=== PATIENT | male | born 1945 | race Caucasian/White ===

== ENCOUNTER 2016-05-10 20:28 | Inpatient (IN) | payer OTHER, BC ==
[~2016-05-10] VITALS: Ht 180.3 cm; Wt 81.6 kg
[~2016-05-10 20:28] MED LIST: ASPEC325 PO; ATOR-26 PO; BUME1TAB PO; CARB25TA12 PO; CGN5X PO; CZR25 PO; DIGO0.122 PO; ELDP5 PO; FINA5TAB PO; METH-1117 PO; METO50TA16 PO; MIRT30TA2 PO; MULT1TAB56 PO; NVLGI7030 SC; POTA20TA16 PO; ROPI1TAB29 PO; SENNTAB23 PO
[2016-05-10 20:47] LABS: HEMATOCRIT 46.6 % (42-52); MEAN CORPUSCULAR HEMOGLOBIN 31.3 pg (25-34); MEAN CORPUSCULAR HGB CONC 34.8 g/dl (32-36); MEAN PLATELET VOLUME 11.2 fL (7.4-10.4); PLATELET COUNT 143 K/uL (130-400); RED BLOOD COUNT 5.18 M/uL (4.7-6.1); WHITE BLOOD COUNT 8.08 K/uL (4.8-10.8)
--- NOTE | 2016-05-10 20:59 | DIAGNOSTIC IMAGING REPORT ---
CT OF THE HEAD WITHOUT CONTRAST CLINICAL HISTORY: Right-sided weakness. Cerebrovascular accident symptoms. COMPARISON STUDY: Head CT March 02, 2009. CT DOSE: 712.55 mGy.cm TECHNIQUE: Helical axial images of the head were obtained without IV contrast. Automated exposure control was utilized for the study. FINDINGS: No acute intracranial hemorrhage, midline shift or mass effect is present. There is an old infarct within the right occipital lobe. Subtle hypodensity within the right frontal lobe shown on image 22 of 32 is probably artifactual. There is equivocal loss of garcía-white differentiation within the left insular ribbon shown on axial image 16 of 32. Basilar cisterns are patent. There are no extra-axial collections. The right maxillary sinus is largely opacified. There is no calvarial fracture. IMPRESSION: 1. No acute intracranial hemorrhage or mass effect. 2. Equivocal loss of garcía-white differentiation within the left insular cortex. This could reflect artifact or an acute infarct. 3. Old right occipital lobe infarct. 4. Subtle hypodensity within the anterior right frontal lobe. This is likely artifactual. An acute infarct could appear similar but is considered less likely. Electronically signed by: Fausto Underwood M.D. 05/10/2016 8:57 PM Dictated Date/Time: 05/10/2016 8:49 PM
[2016-05-10 21:00] LABS: ISTAT CREATININE 1.5 mg/dl (0.6-1.3); ISTAT HEMOGLOBIN 15.6 g/dl (14.0-18.0); ISTAT IONIZED CALCIUM 1.19 mmol/l (1.12-1.32)
[2016-05-10 21:05] LABS: INR 1.2 (0.9-1.1); PROTHROMBIN TIME (PATIENT) 12.4 SECONDS (9.0-12.0)
[2016-05-10] MEDS ORDERED: NVLGI/PEN SQ (21:11)
[2016-05-10] MEDS ORDERED: PRAM0.256 PO (21:11)
[2016-05-10] MEDS ORDERED: INSU3INJ3 SQ (21:11)
[2016-05-10] MEDS ORDERED: NVLGIPEN SQ (21:11)
[2016-05-10] MEDS ORDERED: SPIR25TA PO (21:11)
[2016-05-10 21:15] LABS: BUN/CREATININE RATIO 24.1 (10-20); CALCIUM 9.1 mg/dl (8.5-10.1); CREATININE 1.6 mg/dl (0.60-1.40); POTASSIUM 4.9 mmol/L (3.5-5.1)
[2016-05-10] MEDS ORDERED: LEVA45AE PO (21:31)
[2016-05-10] MEDS ORDERED: ALTEPLASE IV STA (21:32)
[2016-05-10] MEDS ORDERED: RECOMBINANT IV STA (21:32)
[2016-05-10] MEDS ORDERED: ALTEPLASE IV ONE (21:33)
[2016-05-10] MEDS ORDERED: ALTEPLASE, RECOMBINANT INJ 7.8 MG in SYRINGE 0 ML IV ONE (21:33)
[2016-05-10] MEDS ORDERED: RECOMBINANT IV ONE (21:33)
[2016-05-10 21:40] VITALS: BP 116/92; PULSE 94; O2SAT 96
[2016-05-10] MEDS ORDERED: SET 2260-0500 IV ONE (21:45)
[2016-05-10 21:48] VITALS: BP 110/88; PULSE 95; O2SAT 96
[2016-05-10 22:00] VITALS: BP 120/81; PULSE 89; O2SAT 96
[2016-05-10] MEDS ORDERED: PHARMACIST DISCHARGE MED REC CONSULT PRN (22:15)
[2016-05-10] MEDS ORDERED: ACETAMINOPHEN 325 MG TAB PO PRN (22:15)
[2016-05-10] MEDS ORDERED: DOCUSATE SODIUM/SENNA 50/8.6MG TAB PO PRN (22:15)
[2016-05-10 22:28] LABS: CKMB/CK RATIO 2.8 (0-3.0)
--- NOTE | 2016-05-10 23:17 | History and Physical ---
History & Physical Date & Time of Service: May 10, 2016 at 22:56 Chief Complaint: Stroke Alert / Rt Sided Weakness, Lsn @1940 Primary Care Physician: Rohit Pena III, CRNP History of Present Illness Source: patient, family 70 y/o M w/Hx CHF (EF 15%), pacer/AICD, DM, Parkinson's. Pt developed acute R sided weakness, L facial droop and aphasia 50 min [employer]. He was sent for a CT which was probable for an acute L insular CVA and evaluated promptly by the telestroke service. A decision was made to provide TPA which he received within an appropriate window. At the time of evaluation for admission, the pt may be exhibiting slight improvement in strength on the R side but has otherwise had minimal results from the TPA. He was apparently in his normal state of health prior to the above. He appears to have expressive aphasia only and is able to nod his head and attempt requested commands however he cannot vocalize. His family are present to provide the above information. 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 - does not drink alcohol Smoking Status: Never Smoker Drug Use: none Marital Status: Housing status: lives with family Occupational Status: retired Multi-Drug Resistant Organisms History of MDRO: Yes Type of MDRO: MRSA Allergies Coded Allergies: Sulfa Antibiotics (Unverified Allergy, Severe, red splotches that itch, ) Propoxyphene (Verified Allergy, Unknown, 02/28/14) Home Medications Scheduled Aspirin (Aspirin *), 325 MG PO QPM Atorvastatin (Lipitor), 80 MG PO DAILY Bumetanide (Bumex), 2 TABS PO BID Carbidopa/Levodopa (Sinemet 25MG/100MG), 2 TAB PO QID Digoxin (Lanoxin), 0.125 MG PO DAILY Finasteride (Proscar), 5 MG PO HS Insulin Aspart (Novolog Flexpen), 10 UNITS SQ BID Insulin Aspart (Novolog Flexpen), 15 UNITS SQ QPM Insulin Detemir (Levemir Flextouch), 50 UNITS SQ HS Levalbuterol Tartrate (Levalbuterol Tartrate Hfa), 2 PUFF PO TID Losartan Potassium (Cozaar *), 0.5 TAB PO DAILY Methenamine Hippurate (Hiprex), 1 GM PO BID Metoprolol Tartrate (Lopressor) (Lopressor), 1.5 TABS PO DAILY Mirtazapine Soltab (Remeron Soltab), 30 MG PO HS Multiple Vitamins W/ Minerals (One Daily Adults 50+), 1 TAB PO DAILY Potassium Ext Rel (Klor-Con), 20 MEQ PO QID Pramipexole Dihydrochloride (Pramipexole Dihydrochlori), 0.25 MG PO TID Selegiline Hcl (Eldepryl *), 5 MG PO DAILY Spironolactone (Aldactone), 25 MG PO DAILY Scheduled PRN Sennosides-Docusate Sodium (Stool Softener), 2 TABS PO AMPM PRN for Constipation Review of Systems Cannot obtain directly from pt - apparently no complaints prior to above acute changes Physical Exam Vital Signs Date Time Temp Pulse Resp B/P Pulse Ox O2 Delivery O2 Flow Rate FiO2 05/10/16 22:00 87 21 120/81 96 Nasal Cannula 2.0 05/10/16 21:57 97 Nasal Cannula 2.0 05/10/16 21:53 81 18 88 Room Air 05/10/16 21:48 86 20 110/88 92 05/10/16 21:43 94 28 95 05/10/16 21:39 92 20 116/92 93 05/10/16 21:33 94 18 95 05/10/16 21:28 104 22 143/105 92 05/10/16 21:23 95 30 91 05/10/16 21:18 90 18 96 05/10/16 21:13 92 20 96 05/10/16 21:08 90 20 91 05/10/16 21:03 89 20 92 05/10/16 20:58 90 20 96 05/10/16 20:48 89 12 119/85 97 Room Air 05/10/16 20:45 98 30 125/94 94 Room Air 05/10/16 20:42 101 05/10/16 20:42 98 30 125/94 94 Room Air General Appearance: + pertinent finding (Overweight elderly male - aphasic - understands commands - no apparent distress) Head: normocephalic, atraumatic, + pertinent finding (Does not appear to be able to open mouth, extrude tongue or mobilize facial muscles) Eyes: + pertinent finding (Pupils are constricted but equal - difficulty w/L gaze without neglect) ENT: + pertinent finding (Dry mucosal memebranes - no audible bruits) Neck: supple, no JVD Respiratory/Chest: chest non-tender, lungs clear, normal breath sounds Cardiovascular: regular rate, rhythm, no edema, + systolic murmur Abdomen/GI: normal bowel sounds, non tender, soft Back: normal inspection, no CVA tenderness Extremities/Musculoskelatal: no calf tenderness, normal capillary refill, no pedal edema Neurologic/Psych: + pertinent finding (Expressive aphasia - Facial muscle weakness - cannot extrude tongue or swallow - pupils contricted but equal - difficulty with L gaze without neglect - loss of sensation to light touch over R upper and lower ext - flacid paralysis of RLE - 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 - cannot comply with coordination exam) Diagnostics Laboratory Results Results Past 24 Hours Test 05/10/16 20:13 05/10/16 20:37 05/10/16 20:54 Range/Units White Blood Count 8.08 4.8-10.8 K/uL Red Blood Count 5.18 4.7-6.1 M/uL Hemoglobin 16.2 14.0-18.0 g/dL Hematocrit 46.6 42-52 % Mean Corpuscular Volume 90.0 80-100 fL Mean Corpuscular Hemoglobin 31.3 25-34 pg Mean Corpuscular Hemoglobin Concent 34.8 32-36 g/dl RDW Standard Deviation 48.5 36.4-46.3 fL RDW Coefficient of Variation 14.7 11.5-14.5 % Platelet Count 143 130-400 K/uL Mean Platelet Volume 11.2 7.4-10.4 fL Prothrombin Time 12.4 9.0-12.0 SECONDS Prothromb Time International Ratio 1.2 0.9-1.1 Activated Partial Thromboplast Time 26.7 21.0-31.0 SECONDS Partial Thromboplastin Ratio 1.0 Sodium Level 137 136-145 mmol/L Potassium Level 4.9 3.5-5.1 mmol/L Chloride Level 101 98-107 mmol/L Carbon Dioxide Level 27 21-32 mmol/L Anion Gap 9.0 18.0 16-25 mmol/L Blood Urea Nitrogen 39 7-18 mg/dl Creatinine 1.60 0.60-1.40 mg/dl Est Creatinine Clear Calc Drug Dose 44.4 ml/min Estimated GFR () 49.2 Estimated GFR (Non- 42.4 BUN/Creatinine Ratio 24.1 10-20 Random Glucose 292 70-99 mg/dl Calcium Level 9.1 8.5-10.1 mg/dl Total Bilirubin 0.6 0.2-1 mg/dl Aspartate Amino Transf (AST/SGOT) 15 15-37 U/L Alanine Aminotransferase (ALT/SGPT) 9 12-78 U/L Alkaline Phosphatase 142 45-117 U/L Total Creatine Kinase 275 39-308 U/L Creatine Kinase MB 7.7 0.5-3.6 ng/ml Creatine Kinase MB Ratio 2.8 0-3.0 Total Protein 7.2 6.4-8.2 gm/dl Albumin 3.6 3.4-5.0 gm/dl Globulin 3.6 2.5-4.0 gm/dl Albumin/Globulin Ratio 1.0 0.9-2 Chemistry Specimen Hemolysis Bedside Hemoglobin 15.6 14.0-18.0 g/dl Bedside Hematocrit 46 42-52 % Bedside Sodium 137 135-144 mEq/L Bedside Potassium 4.9 3.3-5.0 mEq/L Bedside Chloride 98 101-112 mEq/L Bedside Total CO2 28 24-31 mEq/l Bedside Blood Urea Nitrogen 41 7-18 mg/dl Bedside Creatinine 1.5 0.6-1.3 mg/dl Bedside Glucose (other) 292 70-99 mg/dl Bedside Ionized Calcium (Johnathan) 1.19 1.12-1.32 mmol/l Bedside Prothrombin Time INR 1.2 0.9-1.1 Microbiology Results 05/10/16 MRSA DNA Surveillance Screen, Bev Batch Pending Diagnostic Radiology CT head 1. No acute intracranial hemorrhage or mass effect. 2. Equivocal loss of garcía-white differentiation within the left insular cortex. This could reflect artifact or an acute infarct. EKG PAced 96BPM Impression Assessment and Plan 70 y/o M w/Hx CHF (EF 15%), pacer/AICD, DM, Parkinson's. Pt developed acute R sided weakness, L facial droop and aphasia 50 min [employer]. He was sent for a CT which was probable for an acute L insular CVA and evaluated promptly by the telestroke service. A decision was made to provide TPA which he received within an appropriate window. At the time of evaluation for admission, the pt may be exhibiting slight improvement in strength on the R side but has otherwise had minimal results from the TPA. He was apparently in his normal state of health prior to the above. He appears to have expressive aphasia only and is able to nod his head and attempt requested commands however he cannot vocalize. His family are present to provide the above information. 1) CVA - minimal improvement following TPA so prognosis may be poor - Pt transferred to ICU - was evaluated by telestroke and Neurology consulted - will have neuro checks per stroke protocol. Takes daily ASA which will likely be held for 24hrs. Cont Lipitor 80. NGT placed for med administration. Will have a low threshold for repeat CT due to his lack of improvement. Antihypertensives held. He cannot have an MRI due to a pacer-defib. 2) CHF - severe chronic systolic - will need careful monitoring of volume status as we have held the majority of related meds in setting of his acute CVA. 3) DM - sliding scale and Lantus provided 4) CKD 3 - creatinine is at baseline 5) Parkinson's - NGT placed for administration of Sinemet to avoid withdrawal symptoms Full code - Prophylaxis contraindicated w/TPA Total time for this critical admit including review of previous records, meds, ECHO, labs and imaging - discussion with ER MD and pt/family - 45 min Level of Care Critical Care Resuscitation Status FULL RESUSCITATION VTE Prophylaxis VTE Risk Assessment Done? Y/N: Yes Risk Level: Moderate Given or contraindicated: Contraindicated
[2016-05-11] VITALS (37 sets, daily range): BP systolic 98–136; BP diastolic 64–86; PULSE 82–107; TEMP 36.4–37.7; O2SAT 91–98; BMI 25.8
--- NOTE | 2016-05-11 03:16 | EMERGENCY ROOM VISIT NOTE ---
History Report prepared by Tanya: Lynne Valdez Under the Supervision of: Dr. Wayne Daniel M.D. First contact with patient: 20:36 Chief Complaint: STROKE SYMPTOMS Stated Complaint: STROKE ALERT / RT SIDED WEAKNESS, LSN @1940 History of Present Illness The patient is a 70 year old male who presents to the Emergency Room via EMS to be evaluated for an episode of stroke like symptoms with onset 45 minutes ago. The patient is currently aphasic. Per nursing staff, the patient was watching TV with his 45 minutes ago. His noticed that the patient became aphasic. He developed right sided weakness, being unable to move his right leg and right arm, and he developed some left sided facial drooping. The patient denies any pain, headache, abdominal pain, history of stroke. Per nursing staff , the patient takes aspirin daily. The patient's family arrived. They deny that the patient has a history of stroke. Per , the patient had a low blood sugar of 26 previously, at which time he had some facial drooping. Today, they state that his blood sugar was 321. Source of History: patient, family, nursing staff Onset: 45 minutes ago Position: head Quality: other (stroke light symptoms) Timing: other (episode) Note: He developed right sided weakness, being unable to move his right leg and right arm, and he developed some left sided facial drooping Review of Systems See HPI for pertinent positives and negatives. A total of ten systems were reviewed and were otherwise negative. Past Medical & Surgical Medical Problems: (1) CHF (congestive heart failure) (2) CVA (cerebral vascular accident) (3) Diabetes (4) Hernia (5) HTN (hypertension) (6) Pacemaker Surgical Problems: (1) Hx of tonsillectomy Family History Diabetes mellitus Heart disease Hypertension Lung disease Social History Smoking Status: Never Smoker Drug Use: none Marital Status: Housing Status: lives with significant other Occupation Status: retired Current/Historical Medications Scheduled Aspirin (Aspirin *), 325 MG PO QPM Atorvastatin (Lipitor), 80 MG PO DAILY Bumetanide (Bumex), 2 TABS PO BID Carbidopa/Levodopa (Sinemet 25MG/100MG), 2 TAB PO QID Digoxin (Lanoxin), 0.125 MG PO DAILY Finasteride (Proscar), 5 MG PO HS Insulin Aspart (Novolog Flexpen), 10 UNITS SQ BID Insulin Aspart (Novolog Flexpen), 15 UNITS SQ QPM Insulin Detemir (Levemir Flextouch), 50 UNITS SQ HS Levalbuterol Tartrate (Levalbuterol Tartrate Hfa), 2 PUFF PO TID Losartan Potassium (Cozaar *), 0.5 TAB PO DAILY Methenamine Hippurate (Hiprex), 1 GM PO BID Metoprolol Tartrate (Lopressor) (Lopressor), 1.5 TABS PO DAILY Mirtazapine Soltab (Remeron Soltab), 30 MG PO HS Multiple Vitamins W/ Minerals (One Daily Adults 50+), 1 TAB PO DAILY Potassium Ext Rel (Klor-Con), 20 MEQ PO QID Pramipexole Dihydrochloride (Pramipexole Dihydrochlori), 0.25 MG PO TID Selegiline Hcl (Eldepryl *), 5 MG PO DAILY Spironolactone (Aldactone), 25 MG PO DAILY Scheduled PRN Sennosides-Docusate Sodium (Stool Softener), 2 TABS PO AMPM PRN for Constipation Allergies Coded Allergies: Sulfa Antibiotics (Unverified Allergy, Severe, red splotches that itch, ) Propoxyphene (Verified Allergy, Unknown, 02/28/14) Physical Exam Vital Signs Date Time Temp Pulse Resp B/P Pulse Ox O2 Delivery O2 Flow Rate FiO2 05/10/16 22:31 85 3 92 05/10/16 22:28 111/74 05/10/16 22:16 88 6 97 05/10/16 22:13 109/82 05/10/16 22:01 90 6 97 05/10/16 22:00 89 24 120/81 96 Nasal Cannula 2.0 05/10/16 22:00 87 21 120/81 96 Nasal Cannula 2.0 05/10/16 21:57 97 Nasal Cannula 2.0 05/10/16 21:53 81 18 88 Room Air 05/10/16 21:48 86 20 110/88 92 05/10/16 21:48 95 24 110/88 96 Nasal Cannula 2.0 05/10/16 21:43 94 28 95 05/10/16 21:40 94 24 116/92 96 Nasal Cannula 2.0 05/10/16 21:39 92 20 116/92 93 05/10/16 21:33 94 18 95 05/10/16 21:28 104 22 143/105 92 05/10/16 21:23 95 30 91 05/10/16 21:18 90 18 96 05/10/16 21:13 92 20 96 05/10/16 21:08 90 20 91 05/10/16 21:03 89 20 92 05/10/16 20:58 90 20 96 05/10/16 20:48 89 12 119/85 97 Room Air 05/10/16 20:45 98 30 125/94 94 Room Air 05/10/16 20:42 101 05/10/16 20:42 98 30 125/94 94 Room Air Physical Exam GENERAL: Awake, alert, well appearing, no distress HENT: Normocephalic, atraumatic. TM's normal. Oropharynx unremarkable. EYES: PERRL. EOMI. Normal conjunctiva. Sclera non-icteric. NECK: Supple. No nuchal rigidity. FROM. No JVD or bruit. RESPIRATORY: CTA CARDIAC: RRR. No murmur. ABDOMEN: Soft, non distended. No tenderness to palpation. No rebound or guarding. No masses. RECTAL: Deferred. MUSCULOSKELETAL: Unremarkable. No edema. No discoloration. Gross motor strength symmetric. NEURO: Cranial nerves 2-12 grossly intact. Normal sensorium, but expressive aphasia is present, left facial droop and right arm weakness. No pronator drift. SKIN: No rash or jaundice noted. LYMPH: No adenopathy. Medical Decision & Procedures ER Provider Diagnostic Interpretation: Radiology results as stated below per my review and radiologist interpretation CT OF THE HEAD WITHOUT CONTRAST CLINICAL HISTORY: Right-sided weakness. Cerebrovascular accident symptoms. COMPARISON STUDY: Head CT March 02, 2009. CT DOSE: 712.55 mGy.cm TECHNIQUE: Helical axial images of the head were obtained without IV contrast. Automated exposure control was utilized for the study. FINDINGS: No acute intracranial hemorrhage, midline shift or mass effect is present. There is an old infarct within the right occipital lobe. Subtle hypodensity within the right frontal lobe shown on image 22 of 32 is probably artifactual. There is equivocal loss of garcía-white differentiation within the left insular ribbon shown on axial image 16 of 32. Basilar cisterns are patent. There are no extra-axial collections. The right maxillary sinus is largely opacified. There is no calvarial fracture. IMPRESSION: 1. No acute intracranial hemorrhage or mass effect. 2. Equivocal loss of garcía-white differentiation within the left insular cortex. This could reflect artifact or an acute infarct. 3. Old right occipital lobe infarct. 4. Subtle hypodensity within the anterior right frontal lobe. This is likely artifactual. An acute infarct could appear similar but is considered less likely. Electronically signed by: Fausto Underwood M.D. 05/10/2016 8:57 PM Dictated Date/Time: 05/10/2016 8:49 PM Laboratory Results 05/10/16 20:13 05/10/16 20:13 Test 05/10/16 20:13 05/10/16 20:37 05/10/16 20:54 Red Blood Count 5.18 M/uL (4.7-6.1) Mean Corpuscular Volume 90.0 fL (80-100) Mean Corpuscular Hemoglobin 31.3 pg (25-34) Mean Corpuscular Hemoglobin Concent 34.8 g/dl (32-36) RDW Standard Deviation 48.5 fL (36.4-46.3) RDW Coefficient of Variation 14.7 % (11.5-14.5) Mean Platelet Volume 11.2 fL (7.4-10.4) Prothrombin Time 12.4 SECONDS (9.0-12.0) Prothromb Time International Ratio 1.2 (0.9-1.1) Activated Partial Thromboplast Time 26.7 SECONDS (21.0-31.0) Partial Thromboplastin Ratio 1.0 Est Creatinine Clear Calc Drug Dose 44.4 ml/min Estimated GFR () 49.2 Estimated GFR (Non- 42.4 BUN/Creatinine Ratio 24.1 (10-20) Calcium Level 9.1 mg/dl (8.5-10.1) Total Bilirubin 0.6 mg/dl (0.2-1) Aspartate Amino Transf (AST/SGOT) 15 U/L (15-37) Alanine Aminotransferase (ALT/SGPT) 9 U/L (12-78) Alkaline Phosphatase 142 U/L (45-117) Total Creatine Kinase 275 U/L (39-308) Creatine Kinase MB 7.7 ng/ml (0.5-3.6) Creatine Kinase MB Ratio 2.8 (0-3.0) Total Protein 7.2 gm/dl (6.4-8.2) Albumin 3.6 gm/dl (3.4-5.0) Globulin 3.6 gm/dl (2.5-4.0) Albumin/Globulin Ratio 1.0 (0.9-2) Chemistry Specimen Hemolysis Bedside Hemoglobin 15.6 g/dl (14.0-18.0) Bedside Hematocrit 46 % (42-52) Bedside Sodium 137 mEq/L (135-144) Bedside Potassium 4.9 mEq/L (3.3-5.0) Bedside Chloride 98 mEq/L (101-112) Bedside Total CO2 28 mEq/l (24-31) Anion Gap 18.0 mmol/L (16-25) Bedside Blood Urea Nitrogen 41 mg/dl (7-18) Bedside Creatinine 1.5 mg/dl (0.6-1.3) Bedside Glucose (other) 292 mg/dl (70-99) Bedside Ionized Calcium (Johnathan) 1.19 mmol/l (1.12-1.32) Bedside Prothrombin Time INR 1.2 (0.9-1.1) Date/Time Source Procedure Growth Status 05/10/16 00:00 Nasal MRSA DNA Surveillance Screen - Final Specimen Negative for MRSA by DNA Probe Complete Laboratory results reviewed by me Medications Administered Medications (Trade) Dose Ordered Sig/Eddie Route Start Time Stop Time Status Last Admin Dose Admin Alteplase, Recombinant 78 mg/ Empty Bag 78 ml @ 78 mls/hr TODAY@2133 ONCE IV 05/10/16 21:33 05/10/16 22:32 DC 05/10/16 21:46 78 MLS/HR Alteplase, Recombinant/ Syringe (Activase Inj/ Syringe) 7.8 ml @ 7.8 mls/min TODAY@2133 ONCE IV 05/10/16 21:33 05/10/16 21:34 DC 05/10/16 21:42 7.8 MLS/MIN ECG Indication: altered mental status Rate (beats per minute): 96 Rhythm: other (paced) Findings: no ectopy ED Course 2036: The patient was evaluated in room A3. A complete history and physical exam was performed. There has been a slight improvement in his right sided strength since arrival. 2039: A stroke alert was called in the ED. 2044: I called pharmacy to let them know that the patient may be a TPA candidate. 2051: I discussed the case with Dr. Bowles ([facility], Neurology); he advises that he will see the patient via telestroke in five minutes. 2109: I reassessed the patient. He is stable but still has the same symptoms. He is currently being evaluated via telestroke by Dr. Salas. 2128: , Stroke recommended TPA. I called the pharmacist to order the TPA for the patient. 2132: Alteplase Recombinant 7.8 ml @ 7.8 mls/ min IV, Alteplase Recombinant 78 mg/ Empty bag 78 ml @ 78 mls/hr IV 2134: I reevaluated the patient. TPA is underway. His arm issue seems to be better. He still aphasic. 2138: I discussed the case with Dr. Medeiros ([facility]); he will further evaluate the patient. Medical Decision Triage Nursing notes reviewed. The patient's presentation and history were concerning for stroke-like symptoms. Etiologies such as CVA, TIA, metabolic, infection, hypo/hyperglycemia, electrolyte abnormalities, cardiac sources, intracerebral event, toxicologic, neurologic, as well as others were entertained. The patient presented to the emergency department with acute onset of strokelike symptoms. This was very concerning. He was taken emergently to CT imaging. The patient had a consultation placed with stroke neurology. The stroke neurologist evaluated the patient via the telephone stroke program. I did contact the pharmacy to prepare TPA. The patient had findings on CT imaging concerning for acute infarct. CBC, chemistry panel and LFTs were unremarkable. I-STAT was unremarkable. The patient was evaluated by stroke neurology. It was felt that he was a candidate for TPA and it was recommended to administer this. The patient and family consented. I did review the details including the risk of bleeding. The patient was given TPA. Internal medicine was consulted for further evaluation and management. The chart was completed utilizing [employer] voice recognition software. Grammatical errors, random word insertions, pronoun errors, and incomplete sentences are an occasional consequence of this system due to software limitations, ambient noise, and hardware issues. Any formal questions or concerns about the content, text, or information contained within the body of this dictation should be directly addressed to the physician for clarification. Consults Time Called: 2048 Consulting Physician: Dr. Bowles ([facility], Neurology) Returned Call: 2051 I discussed the case with Dr. Bowles ([facility], Neurology); he advises that he will see the patient via telestroke in five minutes. Additional Consults: Time Called: 2137 Consulted Physician: Dr. Medeiros ([facility]) Returned Call: 2138 Additional Comments: I discussed the case with Dr. Medeiros ([facility]); he will further evaluate the patient. Impression Primary Impression: Acute CVA (cerebrovascular accident) Critical Care I have personally spent greater than 30 minutes of critical care time in the direct management of this patient. This includes bedside care, interpretation of diagnostic studies, and testing, discussion with consultants, patient, and family members, and other required patient management activities. This 30 minutes is in excess of all separately billable procedures. Scribe Attestation The scribe's documentation has been prepared under my direction and personally reviewed by me in its entirety. I confirm that the note above accurately reflects all work, treatment, procedures, and medical decision making performed by me. Departure Information Dispostion Being Evaluated By Hospitalist Referrals Rohit Pena III, CRNP (PCP) Patient Instructions My [facility]
[2016-05-11 05:23] LABS: MANUAL MICROSCOPIC REQUIRED? YES; URINE APPEARANCE TURBID (CLEAR); URINE BILIRUBIN NEG (NEG); URINE COLOR RED; URINE NITRITE NEG (NEG); URINE SPECIFIC GRAVITY 1.015 (1.000-1.030); UROBILINOGEN NEG (NEG)
[2016-05-11 05:46] LABS: REVIEW REQ? NO
[2016-05-11 05:52] LABS: URINE RBC >30 /hpf (0-4)
[2016-05-11 05:54] LABS: URINE WBC >30 /hpf (0-5)
[2016-05-11 05:55] LABS: BASO % 0.4 %; BASO ABS # 0.03 K/uL (0-0.2); COMPLETE YES; EOS % 0.9 %; HEMATOCRIT 46.9 % (42-52); IG% 0.1 %; LYMPH % 17.7 %; LYMPH ABS # 1.36 K/uL (1.2-3.4); MEAN CORPUSCULAR HEMOGLOBIN 29.6 pg (25-34); MEAN CORPUSCULAR HGB CONC 33.3 g/dl (32-36); MEAN PLATELET VOLUME 11.8 fL (7.4-10.4); MONO % 9.7 %; NEUT % 71.2 %; PLATELET COUNT 135 K/uL (130-400); RED BLOOD COUNT 5.27 M/uL (4.7-6.1)
[2016-05-11 05:57] LABS: URINE BACTERIA 2+ (NEG)
[2016-05-11 05:58] LABS: ZZUR CULT IF INDIC CLEAN CATCH YES
[2016-05-11] MEDS: INSULIN ASPART 100 UNITS/ML 3 ML PEN SC SCH ×4 (06:14→21:37)
[2016-05-11 06:33] LABS: BUN/CREATININE RATIO 22.1 (10-20); CALCIUM 8.8 mg/dl (8.5-10.1); CREATININE 1.5 mg/dl (0.60-1.40); MAGNESIUM 2.5 mg/dl (1.8-2.4); POTASSIUM 4.2 mmol/L (3.5-5.1)
[2016-05-11 06:37] LABS: CHOLESTEROL/HDL RATIO 3.9
--- NOTE | 2016-05-11 07:12 | DIAGNOSTIC IMAGING REPORT ---
CT HEAD WITHOUT CONTRAST (CT) CLINICAL HISTORY: Stroke. Follow-up examination. Right-sided weakness. COMPARISON STUDY: 05/10/2016 TECHNIQUE: Axial CT of the brain is performed from the vertex to the skull base. IV contrast was not administered for this examination. CT DOSE: 614.27 mGy.cm FINDINGS: There is a large left frontal subtle hypodensity with loss of garcía-white differentiation. The findings are consistent with an acute Infarct measuring approximately 6 cm in diameter. There is no acute hemorrhage. There is no midline shift. There are patchy white matter hypodensities likely on a small vessel basis. There is an old right occipital lobe infarct. There is no evidence of pathologic ventricular dilatation. There is a cavum septa pellucidum. There is near complete opacification of the right maxillary sinus. IMPRESSION: 1. Large acute left frontal lobe infarct. 2. No evidence of acute hemorrhage 3. Old right occipital lobe infarct Electronically signed by: Nato Echeverria M.D. 05/11/2016 7:10 AM Dictated Date/Time: 05/11/2016 7:05 AM
[2016-05-11] MEDS ORDERED: LEValbuterol HFA 15GM INHALER INH SCH (09:00)
[2016-05-11] MEDS: PRAMIPEXOLE DIHYDROCHLORIDE 0.25MG TAB PO SCH ×3 (09:00→22:53)
[2016-05-11] MEDS: METHENAMINE HIPPURATE 1 GM TAB PO SCH ×2 (09:00→22:54)
[2016-05-11] MEDS ORDERED: ASPIRIN 81 MG CHEW PO SCH (09:00)
[2016-05-11] MEDS: CEROVITE ADV FORMULA TAB PO SCH (09:00)
[2016-05-11] MEDS: POTASSIUM CHLORIDE 20 MEQ TABCR PO SCH ×4 (09:00→22:53)
[2016-05-11] MEDS: ATORVASTATIN 40 MG TAB PO SCH (09:00)
[2016-05-11] MEDS: CARBIDOPA/LEVODOPA 25/100MG TAB PO SCH ×4 (09:00→22:54)
[2016-05-11] MEDS ORDERED: LOSARTAN POTASSIUM 25 MG TAB PO SCH (09:00)
[2016-05-11] MEDS: PANTOprazole INJ 40 MG in SYRINGE 0 ML IV SCH (11:24)
[2016-05-11] MEDS: SELEGILINE HCL 5 MG CAP PO SCH (11:25)
--- NOTE | 2016-05-11 11:54 | Neurology Consultation ---
Neurology Consultation Date of Consultation: May 11, 2016. Attending Physician: Adelita Ferrera MD Primary Care Physician: Rohit Pena III, CRNP Reason for Consultation: Stroke History of Present Illness Source: hospital records The patient is a 70-year-old male who presented to the emergency department yesterday with acute onset right-sided weakness and inability to speak. The symptoms began 45 minutes prior to his arrival and were witnessed by family members who are present at bedside this morning. The symptoms were worrisome for an acute left hemispheric stroke. A CT of the head revealed loss of the garcía -white junction of the left insular cortex and a chronic right occipital lobe stroke. A tele-stroke consultation was obtained. TPA was administered. There was some improvement in this patient's right-sided weakness however his expressive aphasia persisted. The patient was admitted to the ICU for further evaluation and management. Past medical history is notable for stroke, congestive heart failure, history of cardiac pacer, and Parkinson's disease. I had been following this patient for his Parkinson's disease and associated restless leg syndrome and mild dementia for the past few years. He was last seen in neurology clinic 04/03/2016. A follow-up CT of the head was completed this morning. I reviewed the images and radiologist's impression of both of his head CTs. The follow-up CT reveals an evolving, large, 6 cm, left frontal lobe infarct. There is no hemorrhage. There is no midline shift. The chronic right occipital lobe infarct is again observed. The patient is unable to speak or provide a history due to his persistent aphasia. Past Medical/Surgical History Medical Problems: (1) Acute CVA (cerebrovascular accident) Status: Acute Family History Family history positive for diabetes mellitus and hypertension Father: coronary artery disease, pertinent history of Mother: pertinent history of Sibling(s): coronary artery disease, diabetes, pertinent history of Social History Smoking Status: Never smoker Drug Use: none Marital Status: Housing Status: lives with significant other Occupation Status: retired Allergies Coded Allergies: Sulfa Antibiotics (Unverified Allergy, Severe, red splotches that itch, ) Propoxyphene (Verified Allergy, Unknown, 02/28/14) Current Inpatient Medications Current Inpatient Medications Medications (Trade) Dose Ordered Sig/Eddie Route Start Time Stop Time Status Last Admin Dose Admin Atorvastatin Calcium (Lipitor Tab) 80 mg DAILY PO 05/11/16 09:00 06/10/16 08:59 Carbidopa/Levodopa (Sinemet 25/ 100MG Tab) 2 tab QID PO 05/11/16 09:00 06/10/16 08:59 Digoxin (Lanoxin Tab) 0.125 mg DAILY@1600 PO 05/11/16 16:00 06/10/16 15:59 Finasteride (Proscar Tab) 5 mg HS PO 05/11/16 21:00 06/10/16 20:59 Insulin Aspart (novoLOG ASPART) 15 units QPM SQ 05/11/16 21:00 06/10/16 20:59 Levalbuterol (Xopenex Hfa Inhaler) 2 puffs TID INH 05/11/16 09:00 06/10/16 08:59 Losartan Potassium (coZAAR TAB) 12.5 mg DAILY PO 05/11/16 09:00 06/10/16 08:59 Methenamine Hippurate (Urex Tab) 1 gm BID PO 05/11/16 09:00 05/21/16 08:59 Multivitamins/ Minerals (Multivitamin W/ Minerals Tab) 1 tab DAILY PO 05/11/16 09:00 06/10/16 08:59 Potassium Chloride (Klor-Con Tab) 20 meq QID PO 05/11/16 09:00 06/10/16 08:59 Pramipexole Dihydrochloride (miraPEX TAB) 0.25 mg TID PO 05/11/16 09:00 06/10/16 08:59 Selegiline HCl (Eldepryl Cap) 5 mg DAILY PO 05/11/16 09:00 06/10/16 08:59 Senna/Docusate Sodium (Senokot S Tab) 2 tab DAILY PRN PO 05/10/16 22:15 06/09/16 22:14 Mirtazapine (Remeron Solutab) 30 mg HS PO 05/11/16 21:00 06/10/16 20:59 Acetaminophen 650 mg 650 mg Q4H PRN PO 05/10/16 22:15 06/09/16 22:14 Pantoprazole Sodium/Syringe (Protonix Inj/ Syringe) 10 ml @ 5 mls/min DAILY@1100 IV 05/11/16 11:00 06/10/16 10:59 Morphine Sulfate (MoRPHine SULFATE INJ) 2 mg Q2H PRN IV 05/10/16 22:15 05/24/16 22:14 Miscellaneous Information (Pharmacist Discharge Med Rec Consult) 1 ea UD PRN N/A 05/10/16 22:15 06/09/16 22:14 Insulin Aspart (novoLOG ASPART) SLIDING SCALE G... ACHS SC 05/11/16 06:45 06/10/16 06:59 Review of Systems Unable to obtain a reliable review of systems due to patient's severe, persistent, aphasia. Physical Exam Vital Signs (Past 24 Hrs): Date Time Temp Pulse Resp B/P Pulse Ox O2 Delivery O2 Flow Rate FiO2 05/11/16 06:15 93 20 117/75 97 Nasal Cannula 2.0 05/11/16 06:00 91 14 112/69 95 Nasal Cannula 2.0 05/11/16 05:45 88 12 109/69 96 Nasal Cannula 2.0 05/11/16 05:15 89 14 115/82 98 Nasal Cannula 2.0 05/11/16 04:45 93 18 124/86 95 Nasal Cannula 2.0 05/11/16 04:15 90 17 110/77 97 Nasal Cannula 2.0 05/11/16 04:00 Nasal Cannula 2.0 05/11/16 04:00 36.7 86 16 128/82 96 Nasal Cannula 2.0 05/11/16 03:45 89 22 99/78 96 Nasal Cannula 2.0 05/11/16 03:15 88 16 103/74 96 Nasal Cannula 2.0 05/11/16 02:45 84 20 107/74 95 Nasal Cannula 2.0 05/11/16 02:15 88 14 98/74 98 Nasal Cannula 2.0 05/11/16 02:00 85 16 101/70 96 Nasal Cannula 2.0 05/11/16 01:45 86 15 104/68 97 Nasal Cannula 2.0 05/11/16 01:28 87 20 99/70 94 05/11/16 01:15 36.4 92 22 107/76 96 Nasal Cannula 2.0 05/11/16 01:13 89 14 107/76 96 05/11/16 01:06 82 12 104/65 95 05/11/16 01:00 36.4 92 26 109/76 96 Nasal Cannula 2.0 05/11/16 00:45 93 20 120/85 92 Nasal Cannula 2.0 05/11/16 00:15 91 20 118/83 97 Nasal Cannula 2.0 05/11/16 00:02 104 20 136/92 96 Nasal Cannula 2.0 05/10/16 23:31 92 3 94 Nasal Cannula 2.0 05/10/16 23:28 113/85 05/10/16 23:16 88 2 96 05/10/16 23:13 112/74 05/10/16 23:01 87 6 97 05/10/16 22:58 115/85 05/10/16 22:46 85 3 94 05/10/16 22:44 114/73 05/10/16 22:31 85 3 92 05/10/16 22:28 111/74 05/10/16 22:16 88 6 97 05/10/16 22:13 109/82 05/10/16 22:01 90 6 97 05/10/16 22:00 89 24 120/81 96 Nasal Cannula 2.0 05/10/16 22:00 87 21 120/81 96 Nasal Cannula 2.0 05/10/16 21:57 97 Nasal Cannula 2.0 05/10/16 21:53 81 18 88 Room Air 05/10/16 21:48 86 20 110/88 92 05/10/16 21:48 95 24 110/88 96 Nasal Cannula 2.0 05/10/16 21:43 94 28 95 05/10/16 21:40 94 24 116/92 96 Nasal Cannula 2.0 05/10/16 21:39 92 20 116/92 93 05/10/16 21:33 94 18 95 05/10/16 21:28 104 22 143/105 92 05/10/16 21:23 95 30 91 05/10/16 21:18 90 18 96 05/10/16 21:13 92 20 96 05/10/16 21:08 90 20 91 05/10/16 21:03 89 20 92 05/10/16 20:58 90 20 96 05/10/16 20:48 89 12 119/85 97 Room Air 05/10/16 20:45 98 30 125/94 94 Room Air 05/10/16 20:42 101 05/10/16 20:42 98 30 125/94 94 Room Air The patient is a chronically ill-appearing elderly male. He is mildly lethargic and exhibits impaired attention and concentration. He awakens to verbal stimulation and will follow simple commands. Orientation cannot be reliably tested due to severe aphasia. Memory and fund of knowledge cannot be reliably tested. The patient is unable to name objects or repeat phrases. He attempts to speak but is unable to form complete words. Visual hidalgo are grossly full to bedside confrontation testing. Visual acuity cannot be reliably assessed. Pupils equal round reactive to light and accommodation. Eye movements grossly intact. There is no gaze preference. There is no nystagmus. Corneal reflexes intact bilaterally. There is a right facial droop. Palate elevates to midline. Tongue protrudes to midline. Hearing grossly intact. Shoulder shrug strength intact. Sensation cannot be reliably tested. Deep tendon reflexes are 3+ for the upper and lower extremities. The right plantar response is upgoing. There is mild dysmetria with finger to nose and heel to rodríguez on the right. Finger to nose and heel to rodríguez on the left appeared grossly normal. I'm unable to adequately visualize the optic nerves and posterior elements with ophthalmoscopic examination. Carotid pulses normal to auscultation, no bruits. Muscle skeletal examination reveals grossly intact strength for the arms and legs bilaterally. There is perhaps slight impairment of movement initiation for the right hand. Muscle tone is increased for the limbs. I do not appreciate any cogwheel rigidity. I do not appreciate a significant rest or postural tremor at this time. No gross abnormal movements observed. There is no atrophy of the limbs. Gait not tested due to safety concerns. Laboratory Results Past 24 Hours: 05/11/16 05:21 Red Blood Count 5.27, Mean Corpuscular Volume 89.0, Mean Corpuscular Hemoglobin 29.6, Mean Corpuscular Hemoglobin Concent 33.3, Mean Platelet Volume 11.8, Neutrophils (%) (Auto) 71.2, Lymphocytes (%) (Auto) 17.7, Monocytes (%) (Auto) 9.7, Eosinophils (%) (Auto) 0.9, Basophils (%) (Auto) 0.4, Neutrophils # (Auto) 5.48, Lymphocytes # (Auto) 1.36, Monocytes # (Auto) 0.75, Eosinophils # (Auto) 0.07, Basophils # (Auto) 0.03 05/11/16 05:21 Test 05/10/16 20:13 05/10/16 20:37 05/10/16 20:54 05/11/16 05:21 Prothrombin Time 12.4 SECONDS (9.0-12.0) Prothromb Time International Ratio 1.2 (0.9-1.1) Activated Partial Thromboplast Time 26.7 SECONDS (21.0-31.0) Partial Thromboplastin Ratio 1.0 Total Bilirubin 0.6 mg/dl (0.2-1) Aspartate Amino Transf (AST/SGOT) 15 U/L (15-37) Alanine Aminotransferase (ALT/SGPT) 9 U/L (12-78) Alkaline Phosphatase 142 U/L (45-117) Total Creatine Kinase 275 U/L (39-308) Creatine Kinase MB 7.7 ng/ml (0.5-3.6) Creatine Kinase MB Ratio 2.8 (0-3.0) Total Protein 7.2 gm/dl (6.4-8.2) Albumin 3.6 gm/dl (3.4-5.0) Globulin 3.6 gm/dl (2.5-4.0) Albumin/Globulin Ratio 1.0 (0.9-2) Chemistry Specimen Hemolysis Bedside Hemoglobin 15.6 g/dl (14.0-18.0) Bedside Hematocrit 46 % (42-52) Bedside Sodium 137 mEq/L (135-144) Bedside Potassium 4.9 mEq/L (3.3-5.0) Bedside Chloride 98 mEq/L (101-112) Bedside Total CO2 28 mEq/l (24-31) Bedside Blood Urea Nitrogen 41 mg/dl (7-18) Bedside Creatinine 1.5 mg/dl (0.6-1.3) Bedside Glucose (other) 292 mg/dl (70-99) Bedside Ionized Calcium (Johnathan) 1.19 mmol/l (1.12-1.32) Bedside Prothrombin Time INR 1.2 (0.9-1.1) White Blood Count 7.70 K/uL (4.8-10.8) Red Blood Count 5.27 M/uL (4.7-6.1) Hemoglobin 15.6 g/dL (14.0-18.0) Hematocrit 46.9 % (42-52) Mean Corpuscular Volume 89.0 fL (80-100) Mean Corpuscular Hemoglobin 29.6 pg (25-34) Mean Corpuscular Hemoglobin Concent 33.3 g/dl (32-36) Platelet Count 135 K/uL (130-400) Mean Platelet Volume 11.8 fL (7.4-10.4) Neutrophils (%) (Auto) 71.2 % Lymphocytes (%) (Auto) 17.7 % Monocytes (%) (Auto) 9.7 % Eosinophils (%) (Auto) 0.9 % Basophils (%) (Auto) 0.4 % Neutrophils # (Auto) 5.48 K/uL (1.4-6.5) Lymphocytes # (Auto) 1.36 K/uL (1.2-3.4) Monocytes # (Auto) 0.75 K/uL (0.11-0.59) Eosinophils # (Auto) 0.07 K/uL (0-0.5) Basophils # (Auto) 0.03 K/uL (0-0.2) RDW Standard Deviation 47.6 fL (36.4-46.3) RDW Coefficient of Variation 14.7 % (11.5-14.5) Immature Granulocyte % (Auto) 0.1 % Immature Granulocyte # (Auto) 0.01 K/uL (0.00-0.02) Anion Gap 9.0 mmol/L (3-11) Est Creatinine Clear Calc Drug Dose 47.4 ml/min Estimated GFR () 53.1 Estimated GFR (Non- 45.9 BUN/Creatinine Ratio 22.1 (10-20) Calcium Level 8.8 mg/dl (8.5-10.1) Magnesium Level 2.5 mg/dl (1.8-2.4) Triglycerides Level 137 mg/dl (0-150) Cholesterol Level 153 mg/dl (0-200) HDL Cholesterol 39 mg/dl LDL Cholesterol, Calculated 87 mg/dl VLDL Cholesterol, Calculated 27 mg/dl Cholesterol/HDL Ratio 3.9 Test 05/11/16 05:25 Bedside Glucose 116 mg/dl (70-99) Impression Large, acute, left frontal lobe stroke resulting in a significant, persistent, expressive aphasia. There is a mild, residual, right hemiparesis affecting the face and distal right upper extremity. Patient received TPA within 3 hours of symptom onset. Cardiac or carotid embolism in consideration. Parkinson's disease. Chronic condition. 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 Plan Given the large size of this patient's acute left frontal lobe stroke I would recommend a repeat CT of the head to be completed this evening to reassess for hemorrhagic transformation and progression in cytotoxic edema. Would hold on starting antiplatelet therapy at this time. Would not administer anticoagulants or heparin at this time. Patient's blood pressure tends to run slightly low and may be related to his Parkinson's disease. Would continue to monitor. Would order a carotid ultrasound. I explained to this patient's family the possibility that his condition could worsen due to progressive swelling in his brain related to the recent stroke as well as possible interval development of hemorrhagic transformation. Prognosis fair.
[2016-05-11] MEDS ORDERED: ACETAMINOPHEN IV 650 MG in EMPTY BAG 0 ML IV PRN (12:45)
[2016-05-11] MEDS ORDERED: PERFLUTREN LIPID MICROSPHERE (DEFINITY) IV ONE (13:22)
[2016-05-11] MEDS ORDERED: METOPROLOL TARTRATE 1 MG/ML VIAL ONE (13:23)
[2016-05-11] MEDS: SODIUM CHLORIDE 0.9% 1000ML 1,000 ML IV SCH (13:23)
[2016-05-11] MEDS: CEFTRIAXONE SOD INJ 1 GM in DEXTROSE 5% ADD-VANTAGE 50ML 50 ML IV SCH (13:23)
[2016-05-11] MEDS: METOPROLOL TARTRATE 1 MG/ML VIAL IV. SCH ×2 (13:26→20:09)
--- NOTE | 2016-05-11 14:06 | DIAGNOSTIC IMAGING REPORT ---
ULTRASOUND OF THE CAROTID ARTERIES CLINICAL HISTORY: Acute stroke COMPARISON STUDY: 08/23/2010 TECHNIQUE: Real-time, grayscale, and color Doppler sonography of the carotid arteries was performed. Imaging reviewed in the transverse and longitudinal planes. NASCET criteria was utilized for stenosis calcification. FINDINGS: There is mild to moderate atherosclerotic plaque present bilaterally. The peak systolic velocity within the right internal carotid artery is 85 cm/sec. The systolic velocity ratio of right internal to common carotid artery is 0.8. The peak systolic velocity within the left internal carotid artery is 67 cm/sec. The systolic velocity ratio left internal to common carotid artery is 1. Antegrade flow is seen in the vertebral arteries. The external carotid arteries are patent. IMPRESSION: No evidence of hemodynamically significant carotid stenosis. Electronically signed by: Nato Echeverria M.D. 05/11/2016 2:04 PM Dictated Date/Time: 05/11/2016 2:01 PM
--- NOTE | 2016-05-11 14:15 | DIAGNOSTIC IMAGING REPORT ---
CHEST ONE VIEW PORTABLE CLINICAL HISTORY: stroke COMPARISON STUDY: 01/11/2015 FINDINGS: The heart is enlarged. There is a left subclavian pacer/defibrillator present. There is mild central pulmonary vascular congestion. There is no lobar consolidation. There are no significant pleural fusions.[ IMPRESSION: Cardiomegaly with mild central pulmonary vascular congestion. No evidence of lobar consolidation Electronically signed by: Nato Echeverria M.D. 05/11/2016 2:13 PM Dictated Date/Time: 05/11/2016 2:12 PM
--- NOTE | 2016-05-11 14:25 | ECHOCARDIOGRAM REPORT ---
*NOTICE TO RECEIVING CONSTITUTION PARTY AGENCY This information is strictly Confidential and protected under [place] law. [place] law prohibits you from making any further disclosure of this information unless further disclosure is expressly permitted by the written consent of the person to whom it pertains or is authorized by law. A general authorization for the release of medical or other information is not sufficient for this purpose. Hospital accepts no responsibility if the information is made available to any other person, INCLUDING THE PATIENT. Interpretation Summary * Name: JABIER LANDON Study Date: 05/11/2016 01:38 PM BP: 117/75 mmHg * Patient Location: .MSICU\S\E103\S\1 HR: 93 * : 1945 (M/d/yyy) Gender: Male Height: 71 in * Age: 70 yrs Ethnicity: CA Weight: 186 lb * Ordering Physician: Dave Oglesby * Performed By: Lynne German * * Reason For Study: CVA, POSSIBLE THROMBI * BSA: 2.0 m2 * -- Conclusions -- * 1. Moderately dilated LV. Normal LV wall thickness. * 2. Global severe LV dysfunction. LVEF <15%. Grade III diastolic dysfunction. * 3. Normal RV size and function. * 4. No significant valvular pathology. * 5. Normal estimated RA pressure. * 6. 0.5cm, mobile, echogenic mass in IVC, most consistent with thrombus. * 7. Negative saline contrast study: No evidence of interatrial shunt. * 8. Compared with prior study on 01/12/2015: Possible IVC thrombus is new. Dr. Oglesby made aware of findings. Procedure Details * A complete two-dimensional transthoracic echocardiogram was performed (2D, M-mode, Doppler and color flow Doppler). * A saline contrast injection was performed to assess for cardiac shunting. * The injection was performed through an intravenous line in the left arm. * The attending nurse who injected the saline contrast was POOL ARIAS RN. * A total of 20 cc of agitated saline was given. * A contrast injection of Definity was performed to improve assessment of LV function. * Contrast was injected into an intravenous site in the left arm. * One vial of Definity ultrasound contrast was diluted in normal saline to a total volume of 10 ml. A total of '2' ml of solution was administered during imaging. * Lot # [id number] of Definity utilized for procedure. * Expiration date 10/04. * The attending nurse who injected the contrast agent was POOL ARIAS RN. Left Ventricle * The left ventricle is moderately dilated. * There is no thrombus. * There is normal left ventricular wall thickness. * Ejection Fraction = <15%. * Diastolic dysfunction, Grade III (restrictive pattern), consistent with markedly increased left atrial pressure. * There is severe global hypokinesis of the left ventricle. Right Ventricle * The right ventricle is grossly normal size. * There is a pacemaker lead in the right ventricle. * The right ventricular systolic function is normal as assessed by tricuspid annular plane systolic excursion (TAPSE) (normal >1.5 cm). Atria * The left atrial size is normal. * Right atrial size is normal. * Injection of contrast documented no interatrial shunt. Mitral Valve * The mitral valve is grossly normal. * The mitral valve leaflets appear thickened, but open well. * There is no mitral valve stenosis. * There is trace mitral regurgitation. Tricuspid Valve * The tricuspid valve is not well visualized. * There is no tricuspid stenosis. * There is trace tricuspid regurgitation. Aortic Valve * The aortic valve opens well. * No hemodynamically significant valvular aortic stenosis. * There is no significant aortic regurgitation. Pulmonic Valve * The pulmonary valve is inadequately visualized, but the Doppler data is adequate for interpretation. * Pulmonic stenosis is absent. * Trace pulmonic valvular regurgitation. Great Vessels * The aortic root and proximal ascending aorta are normal sized. Pericardium/Pleural * There is no pericardial effusion. Great Vessels * Normal inferior vena cava size and collapsability with sniff indicates a normal right atrial pressure of 3 mmHg * 0.5cm mobile, echogenic mass in IVC, most consistent with thrombus. MMode 2D Measurements and Calculations IVSd 0.87 cm IVSs 1.5 cm LVIDd 5.9 cm LVIDs 5.3 cm LVPWd 0.98 cm LVPWs 1.2 cm IVS/LVPW 0.89 FS 10.5 % EDV(Teich) 175.9 ml ESV(Teich) 136.3 ml EF(Teich) 22.5 % EDV(cubed) 209.6 ml ESV(cubed) 150.3 ml EF(cubed) 28.3 % % IVS thick 77.2 % % LVPW thick 20.6 % LV mass(C)d 219.3 grams LV mass(C)dI 107.3 grams/m\S\2 LV mass(C)s 307.7 grams LV mass(C)sI 150.5 grams/m\S\2 SV(Teich) 39.6 ml SI(Teich) 19.4 ml/m\S\2 SV(cubed) 59.4 ml SI(cubed) 29.0 ml/m\S\2 EPSS 2.1 cm ACS 0.91 cm LA dimension 4.3 cm asc Aorta Diam 3.0 cm LVOT diam 1.7 cm LVOT area 2.3 cm\S\2 LVAd ap4 47.6 cm\S\2 LVLd ap4 9.0 cm EDV(MOD-sp4) 205.6 ml EDV(sp4-el) 212.3 ml LVAs ap4 43.2 cm\S\2 LVLs ap4 8.9 cm ESV(MOD-sp4) 168.5 ml ESV(sp4-el) 178.2 ml EF(MOD-sp4) 18.0 % EF(sp4-el) 16.0 % LVAd ap2 53.9 cm\S\2 LVLd ap2 9.3 cm EDV(MOD-sp2) 261.0 ml EDV(sp2-el) 265.1 ml LVAs ap2 46.3 cm\S\2 LVLs ap2 8.5 cm ESV(MOD-sp2) 207.2 ml ESV(sp2-el) 214.9 ml EF(MOD-sp2) 20.6 % EF(sp2-el) 18.9 % LVLd %diff 2.9 % EDV(MOD-bp) 229.5 ml LVLs %diff -4.73 % ESV(MOD-bp) 194.1 ml EF(MOD-bp) 15.4 % SV(MOD-sp4) 37.1 ml SI(MOD-sp4) 18.1 ml/m\S\2 SV(MOD-sp2) 53.8 ml SI(MOD-sp2) 26.3 ml/m\S\2 SV(MOD-bp) 35.4 ml SI(MOD-bp) 17.3 ml/m\S\2 SV(sp4-el) 34.1 ml SI(sp4-el) 16.7 ml/m\S\2 SV(sp2-el) 50.2 ml SI(sp2-el) 24.5 ml/m\S\2 Doppler Measurements and Calculations MV E max rabia 112.6 cm/sec MV A max rabia 73.1 cm/sec MV E/A 1.5 MV dec time 0.11 sec Ao V2 max 208.1 cm/sec Ao max PG 17.3 mmHg Ao max PG (full) 15.3 mmHg Ao V2 mean 128.9 cm/sec Ao mean PG 7.9 mmHg Ao mean PG (full) 6.9 mmHg Ao V2 VTI 32.7 cm KIEL(I,A) 0.74 cm\S\2 KIEL(I,D) 0.74 cm\S\2 KIEL(V,A) 0.78 cm\S\2 KIEL(V,D) 0.78 cm\S\2 LV V1 max PG 2.1 mmHg LV V1 mean PG 10 mmHg LV V1 max 71.8 cm/sec LV V1 mean 45.3 cm/sec LV V1 VTI 10.7 cm MR max rabia 369.4 cm/sec MR max PG 54.6 mmHg SV(LVOT) 24.2 ml SI(LVOT) 11.9 ml/m\S\2 PA V2 max 40.8 cm/sec PA max PG 0.66 mmHg PI end-d rabia 129.5 cm/sec
--- NOTE | 2016-05-11 15:04 | Critical Care Consultation ---
Critical Care Consultation Date of Consultation: May 11, 2016. Attending Physician: Adelita Ferrera MD Reason for Consultation: Status post TPA for acute frontal lobe left CVA History of Present Illness History is obtained from the patient's record as the patient is a phasic. Patient presented to the emergency department on 05/10/2016 with the development of acute right-sided weakness and left facial droop and aphasia approximately 50 minutes prior to arrival. He was evaluated by tele-neurology at [facility] and received TPA at 2142. Since that time, there has been minimal improvement in the patient's weakness and aphasia. I then consult it for further medical management and close monitoring for possible development of herniation syndrome given the large cerebral infarct. Past Medical/Surgical History Chronic congestive heart failure with an EF reportedly at 15% Diabetes hypertension status post pacemaker and AICD Parkinson's disease Reportedly not an anticoagulation candidate due to fall risk from Parkinson's disease Family History Diabetes mellitus Heart disease Hypertension Lung disease Social History Smoking Status: Never Smoker Drug Use: none Marital Status: Housing Status: lives with significant other Occupation Status: retired Allergies Coded Allergies: Sulfa Antibiotics (Unverified Allergy, Severe, red splotches that itch, ) Propoxyphene (Verified Allergy, Unknown, 02/28/14) Home Medications Scheduled Aspirin (Aspirin *), 325 MG PO QPM Atorvastatin (Lipitor), 80 MG PO DAILY Bumetanide (Bumex), 2 TABS PO BID Carbidopa/Levodopa (Sinemet 25MG/100MG), 2 TAB PO QID Digoxin (Lanoxin), 0.125 MG PO DAILY Finasteride (Proscar), 5 MG PO HS Insulin Aspart (Novolog Flexpen), 10 UNITS SQ BID Insulin Aspart (Novolog Flexpen), 15 UNITS SQ QPM Insulin Detemir (Levemir Flextouch), 50 UNITS SQ HS Levalbuterol Tartrate (Levalbuterol Tartrate Hfa), 2 PUFF PO TID Losartan Potassium (Cozaar *), 0.5 TAB PO DAILY Methenamine Hippurate (Hiprex), 1 GM PO BID Metoprolol Tartrate (Lopressor) (Lopressor), 1.5 TABS PO DAILY Mirtazapine Soltab (Remeron Soltab), 30 MG PO HS Multiple Vitamins W/ Minerals (One Daily Adults 50+), 1 TAB PO DAILY Potassium Ext Rel (Klor-Con), 20 MEQ PO QID Pramipexole Dihydrochloride (Pramipexole Dihydrochlori), 0.25 MG PO TID Selegiline Hcl (Eldepryl *), 5 MG PO DAILY Spironolactone (Aldactone), 25 MG PO DAILY Scheduled PRN Sennosides-Docusate Sodium (Stool Softener), 2 TABS PO AMPM PRN for Constipation Current Inpatient Medications Current Inpatient Medications Medications (Trade) Dose Ordered Sig/Eddie Route Start Time Stop Time Status Last Admin Dose Admin Atorvastatin Calcium (Lipitor Tab) 80 mg DAILY PO 05/11/16 09:00 06/10/16 08:59 Carbidopa/Levodopa (Sinemet 25/ 100MG Tab) 2 tab QID PO 05/11/16 09:00 06/10/16 08:59 Digoxin (Lanoxin Tab) 0.125 mg DAILY@1600 PO 05/11/16 16:00 06/10/16 15:59 Finasteride (Proscar Tab) 5 mg HS PO 05/11/16 21:00 06/10/16 20:59 Insulin Aspart (novoLOG ASPART) 15 units QPM SQ 05/11/16 21:00 06/10/16 20:59 Losartan Potassium (coZAAR TAB) 12.5 mg DAILY PO 05/11/16 09:00 06/10/16 08:59 Future Hold Methenamine Hippurate (Urex Tab) 1 gm BID PO 05/11/16 09:00 05/21/16 08:59 Multivitamins/ Minerals (Multivitamin W/ Minerals Tab) 1 tab DAILY PO 05/11/16 09:00 06/10/16 08:59 Potassium Chloride (Klor-Con Tab) 20 meq QID PO 05/11/16 09:00 06/10/16 08:59 Pramipexole Dihydrochloride (miraPEX TAB) 0.25 mg TID PO 05/11/16 09:00 06/10/16 08:59 Selegiline HCl (Eldepryl Cap) 5 mg DAILY PO 05/11/16 09:00 06/10/16 08:59 Senna/Docusate Sodium (Senokot S Tab) 2 tab DAILY PRN PO 05/10/16 22:15 2/20/17 22:14 Mirtazapine (Remeron Solutab) 30 mg HS PO 05/11/16 21:00 06/10/16 20:59 Acetaminophen 650 mg 650 mg Q4H PRN PO 05/10/16 22:15 06/09/16 22:14 Pantoprazole Sodium/Syringe (Protonix Inj/ Syringe) 10 ml @ 5 mls/min DAILY@1100 IV 05/11/16 11:00 06/10/16 10:59 05/11/16 11:24 5 MLS/MIN Morphine Sulfate (MoRPHine SULFATE INJ) 2 mg Q2H PRN IV 05/10/16 22:15 05/24/16 22:14 Miscellaneous Information (Pharmacist Discharge Med Rec Consult) 1 ea UD PRN N/A 05/10/16 22:15 06/09/16 22:14 Insulin Aspart SLIDING SCALE G... ACHS SC 05/11/16 06:45 06/10/16 06:59 Sodium Chloride 1,000 ml @ 75 mls/hr [id number] IV 05/11/16 12:00 06/10/16 11:59 Ceftriaxone Sodium/Dextrose (Rocephin Inj/ Dextrose Add-Alexander 50ML) 50 ml @ 100 mls/hr Q24H IV 05/11/16 13:00 05/21/16 12:59 Metoprolol Tartrate 2.5 mg 2.5 mg Q6H IV. 05/11/16 13:00 06/10/16 12:59 Acetaminophen/ Empty Bag (Ofirmev IV/ Empty Iv Bag 100ml) 65 ml @ 260 mls/hr Q6H PRN IV 05/11/16 12:45 06/10/16 12:44 Review of Systems Unable to obtain due to patient condition Physical Exam Date Time Temp Pulse Resp B/P Pulse Ox O2 Delivery O2 Flow Rate FiO2 05/11/16 12:15 37.3 100 28 120/75 95 Nasal Cannula 2.0 05/11/16 11:15 96 24 114/75 95 Nasal Cannula 2.0 05/11/16 10:15 103 10 101/68 94 Nasal Cannula 2.0 05/11/16 09:15 107 10 113/73 96 Nasal Cannula 2.0 05/11/16 08:15 94 20 101/66 98 Nasal Cannula 2.0 05/11/16 07:15 37.1 92 16 99/68 95 Nasal Cannula 2.0 05/11/16 06:15 93 20 117/75 97 Nasal Cannula 2.0 05/11/16 06:00 91 14 112/69 95 Nasal Cannula 2.0 05/11/16 05:45 88 12 109/69 96 Nasal Cannula 2.0 05/11/16 05:15 89 14 115/82 98 Nasal Cannula 2.0 05/11/16 04:45 93 18 124/86 95 Nasal Cannula 2.0 05/11/16 04:15 90 17 110/77 97 Nasal Cannula 2.0 05/11/16 04:00 Nasal Cannula 2.0 05/11/16 04:00 36.7 86 16 128/82 96 Nasal Cannula 2.0 05/11/16 03:45 89 22 99/78 96 Nasal Cannula 2.0 05/11/16 03:15 88 16 103/74 96 Nasal Cannula 2.0 05/11/16 02:45 84 20 107/74 95 Nasal Cannula 2.0 05/11/16 02:15 88 14 98/74 98 Nasal Cannula 2.0 05/11/16 02:00 85 16 101/70 96 Nasal Cannula 2.0 05/11/16 01:45 86 15 104/68 97 Nasal Cannula 2.0 05/11/16 01:28 87 20 99/70 94 05/11/16 01:15 36.4 92 22 107/76 96 Nasal Cannula 2.0 05/11/16 01:13 89 14 107/76 96 05/11/16 01:06 82 12 104/65 95 05/11/16 01:00 36.4 92 26 109/76 96 Nasal Cannula 2.0 05/11/16 00:45 93 20 120/85 92 Nasal Cannula 2.0 05/11/16 00:15 91 20 118/83 97 Nasal Cannula 2.0 05/11/16 00:02 104 20 136/92 96 Nasal Cannula 2.0 05/10/16 23:31 92 3 94 Nasal Cannula 2.0 05/10/16 23:28 113/85 05/10/16 23:16 88 2 96 05/10/16 23:13 112/74 05/10/16 23:01 87 6 97 05/10/16 22:58 115/85 05/10/16 22:46 85 3 94 05/10/16 22:44 114/73 05/10/16 22:31 85 3 92 05/10/16 22:28 111/74 05/10/16 22:16 88 6 97 05/10/16 22:13 109/82 05/10/16 22:01 90 6 97 05/10/16 22:00 89 24 120/81 96 Nasal Cannula 2.0 05/10/16 22:00 87 21 120/81 96 Nasal Cannula 2.0 05/10/16 21:57 97 Nasal Cannula 2.0 05/10/16 21:53 81 18 88 Room Air 05/10/16 21:48 86 20 110/88 92 05/10/16 21:48 95 24 110/88 96 Nasal Cannula 2.0 05/10/16 21:43 94 28 95 05/10/16 21:40 94 24 116/92 96 Nasal Cannula 2.0 05/10/16 21:39 92 20 116/92 93 05/10/16 21:33 94 18 95 05/10/16 21:28 104 22 143/105 92 05/10/16 21:23 95 30 91 05/10/16 21:18 90 18 96 05/10/16 21:13 92 20 96 05/10/16 21:08 90 20 91 05/10/16 21:03 89 20 92 05/10/16 20:58 90 20 96 05/10/16 20:48 89 12 119/85 97 Room Air 05/10/16 20:45 98 30 125/94 94 Room Air 05/10/16 20:42 101 05/10/16 20:42 98 30 125/94 94 Room Air Laboratory Results Last 24 Hours Test 05/10/16 20:13 05/10/16 20:37 05/10/16 20:54 05/11/16 05:21 White Blood Count 8.08 K/uL 7.70 K/uL Red Blood Count 5.18 M/uL 5.27 M/uL Hemoglobin 16.2 g/dL 15.6 g/dL Hematocrit 46.6 % 46.9 % Mean Corpuscular Volume 90.0 fL 89.0 fL Mean Corpuscular Hemoglobin 31.3 pg 29.6 pg Mean Corpuscular Hemoglobin Concent 34.8 g/dl 33.3 g/dl RDW Standard Deviation 48.5 fL 47.6 fL RDW Coefficient of Variation 14.7 % 14.7 % Platelet Count 143 K/uL 135 K/uL Mean Platelet Volume 11.2 fL 11.8 fL Prothrombin Time 12.4 SECONDS Prothromb Time International Ratio 1.2 Activated Partial Thromboplast Time 26.7 SECONDS Partial Thromboplastin Ratio 1.0 Sodium Level 137 mmol/L 143 mmol/L Potassium Level 4.9 mmol/L 4.2 mmol/L Chloride Level 101 mmol/L 106 mmol/L Carbon Dioxide Level 27 mmol/L 28 mmol/L Anion Gap 9.0 mmol/L 18.0 mmol/L 9.0 mmol/L Blood Urea Nitrogen 39 mg/dl 33 mg/dl Creatinine 1.60 mg/dl 1.50 mg/dl Est Creatinine Clear Calc Drug Dose 44.4 ml/min 47.4 ml/min Estimated GFR () 49.2 53.1 Estimated GFR (Non- 42.4 45.9 BUN/Creatinine Ratio 24.1 22.1 Random Glucose 292 mg/dl 120 mg/dl Calcium Level 9.1 mg/dl 8.8 mg/dl Total Bilirubin 0.6 mg/dl Aspartate Amino Transf (AST/SGOT) 15 U/L Alanine Aminotransferase (ALT/SGPT) 9 U/L Alkaline Phosphatase 142 U/L Total Creatine Kinase 275 U/L Creatine Kinase MB 7.7 ng/ml Creatine Kinase MB Ratio 2.8 Total Protein 7.2 gm/dl Albumin 3.6 gm/dl Globulin 3.6 gm/dl Albumin/Globulin Ratio 1.0 Chemistry Specimen Hemolysis Bedside Hemoglobin 15.6 g/dl Bedside Hematocrit 46 % Bedside Sodium 137 mEq/L Bedside Potassium 4.9 mEq/L Bedside Chloride 98 mEq/L Bedside Total CO2 28 mEq/l Bedside Blood Urea Nitrogen 41 mg/dl Bedside Creatinine 1.5 mg/dl Bedside Glucose (other) 292 mg/dl Bedside Ionized Calcium (Johnathan) 1.19 mmol/l Bedside Prothrombin Time INR 1.2 Neutrophils (%) (Auto) 71.2 % Lymphocytes (%) (Auto) 17.7 % Monocytes (%) (Auto) 9.7 % Eosinophils (%) (Auto) 0.9 % Basophils (%) (Auto) 0.4 % Neutrophils # (Auto) 5.48 K/uL Lymphocytes # (Auto) 1.36 K/uL Monocytes # (Auto) 0.75 K/uL Eosinophils # (Auto) 0.07 K/uL Basophils # (Auto) 0.03 K/uL Immature Granulocyte % (Auto) 0.1 % Immature Granulocyte # (Auto) 0.01 K/uL Magnesium Level 2.5 mg/dl Triglycerides Level 137 mg/dl Cholesterol Level 153 mg/dl HDL Cholesterol 39 mg/dl LDL Cholesterol, Calculated 87 mg/dl VLDL Cholesterol, Calculated 27 mg/dl Cholesterol/HDL Ratio 3.9 Test 05/11/16 05:25 05/11/16 11:15 05/11/16 11:42 05/11/16 13:16 Bedside Glucose 116 mg/dl 158 mg/dl Troponin I 0.247 ng/ml Diagnostic Results CT HEAD WITHOUT CONTRAST (CT) CLINICAL HISTORY: Stroke. Follow-up examination. Right-sided weakness. COMPARISON STUDY: 05/10/2016 TECHNIQUE: Axial CT of the brain is performed from the vertex to the skull base. IV contrast was not administered for this examination. CT DOSE: 614.27 mGy.cm FINDINGS: There is a large left frontal subtle hypodensity with loss of garcía-white differentiation. The findings are consistent with an acute Infarct measuring approximately 6 cm in diameter. There is no acute hemorrhage. There is no midline shift. There are patchy white matter hypodensities likely on a small vessel basis. There is an old right occipital lobe infarct. There is no evidence of pathologic ventricular dilatation. There is a cavum septa pellucidum. There is near complete opacification of the right maxillary sinus. IMPRESSION: 1. Large acute left frontal lobe infarct. 2. No evidence of acute hemorrhage 3. Old right occipital lobe infarct Electronically signed by: Nato Echeverria M.D. 05/11/2016 7:10 AM Dictated Date/Time: 05/11/2016 7:05 AM The status of this report is Signed. Draft = Not yet reviewed or approved by Radiologist. Signed = Reviewed and approved by Radiologist. Patient Name: JABIER LANDON Unit Number: [id number] Dictated: 05/10/162048 Transcribed: 05/10/162048 JA Printed Date/Time: [~ rep prt dt]/[~ rep prt tm] [~ rep ct labl] - [~ rep ct ivnm] [facility] [place] [address] Dictated: 05/10/162048 Transcribed: 05/10/162048 JA Printed Date/Time: [~ rep prt dt]/[~ rep prt tm] [~ rep ct labl] - [~ rep ct ivnm] CT OF THE HEAD WITHOUT CONTRAST CLINICAL HISTORY: Right-sided weakness. Cerebrovascular accident symptoms. COMPARISON STUDY: Head CT March 02, 2009. CT DOSE: 712.55 mGy.cm TECHNIQUE: Helical axial images of the head were obtained without IV contrast. Automated exposure control was utilized for the study. FINDINGS: No acute intracranial hemorrhage, midline shift or mass effect is present. There is an old infarct within the right occipital lobe. Subtle hypodensity within the right frontal lobe shown on image 22 of 32 is probably artifactual. There is equivocal loss of garcía-white differentiation within the left insular ribbon shown on axial image 16 of 32. Basilar cisterns are patent. There are no extra-axial collections. The right maxillary sinus is largely opacified. There is no calvarial fracture. IMPRESSION: 1. No acute intracranial hemorrhage or mass effect. 2. Equivocal loss of garcía-white differentiation within the left insular cortex. This could reflect artifact or an acute infarct. 3. Old right occipital lobe infarct. 4. Subtle hypodensity within the anterior right frontal lobe. This is likely artifactual. An acute infarct could appear similar but is considered less likely. Electronically signed by: Fausto Underwood M.D. 05/10/2016 8:57 PM Dictated Date/Time: 05/10/2016 8:49 PM The status of this report is Signed. Draft = Not yet reviewed or approved by Radiologist. Signed = Reviewed and approved by Radiologist. <AttendingPhy></AttendingPhy> <FamilyPhy>Rohit Pena III, CRNP</FamilyPhy> < PrimaryPhy>Rohit Pena III, CRNP</PrimaryPhy> <UnitNumber>[id number]</ UnitNumber> <VisitNumber>[id number]</VisitNumber> <PatientName>JABIER LANDON</ PatientName> <DateOfBirth>1945</DateOfBirth> <Location>[facility]</Location> < ServiceDate>05/10/16</ServiceDate> <MNE>ESINDI</MNE> <OrderingPhy>No Doctor, Assigned</OrderingPhy> <OrderingPhyMNE>f rep ord dr serna</OrderingPhyMNE> < DictatingPhyMNE>f rep dict dr serna</DictatingPhyMNE> <CCListMNE>f rep ct trentone</ CCListMNE> <AdmittingPhyMNE>f pt admit dr serna</AdmittingPhyMNE> <AttendingPhyMNE >f pt attend dr serna</AttendingPhyMNE> <ConsultingPhyMNE>f pt consult dr serna</ConsultingPhyMNE> <FamilyPhyMNE>f pt fam dr serna</FamilyPhyMNE> <OtherPhyMNE>f pt other dr serna</OtherPhyMNE> < PrimaryPhyMNE>f pt prim care dr serna</PrimaryPhyMNE> <ReferringPhyMNE>f pt referring dr serna</ReferringPhyMNE> EKG dated 05/10/2016 review, atrial sensed ventricular paced rhythm with a ventricular rate of 96. Abnormal EKG Assessment & Plan (1) Parkinson disease (2) Renal insufficiency (3) Hematuria (4) Encounter for monitoring digoxin therapy (5) Congestive heart failure (6) Hyperglycemia (7) Acute CVA (cerebrovascular accident) (8) Pacemaker Neuro: Repeat CT scan at 10 PM this evening to evaluate for further cerebral edema for hemorrhagic conversion Parkinson's: Unable to crush carbidopa levodopa will unfortunately have to hold until able to swallow pills Cardiovascular: Ejection fraction less than 15% grade 3 diastolic dysfunction Respiratory: At risk for aspiration nothing by mouth at the present time GI: Place course safe nasogastric tube for enteral feeding after 24-hour TPA window Renal: Gentle hydration until able to have NG tube placed Endocrine: Blood sugars within range at this time Hematology: Avoiding antiplatelet and anticoagulation at this time until after 24-hour window, heparin 5000 units twice a day ordered to start tomorrow morning after repeat CT head. I had extensive bedside discussion with the patient's , daughter, and the patient himself. Patient is able to complete complex commands, does have expressive aphasia it is apparent that he does understand what we are talking about by giving thumbs up and showing appropriate fingers. In event of cardiac arrest the patient agreed that he would not want cardiopulmonary resuscitation or mechanical ventilation. and daughter are also in agreement and accordingly I have made the patient a DNR/DNI in event of cardiac arrest. I discussed this with the hospitalist service. Patient critically ill due to large left cerebral stroke at risk for herniation syndrome and hemorrhagic conversion. I have personally spent 45 minutes of critical care time in the direct management of this patient. This is a life/limb threatening event. This includes time spent evaluating patient, direct bedside care, chart review, placing orders, interpretation of diagnostic studies, discussion with consultants, patient, and family members, as well as other required patient management activities. This time is exclusive of all separately billable procedures, and teaching time and separate from and in addition to any other critical care service time.
[2016-05-11] MEDS: DIGOXIN 0.125 MG TAB PO SCH (16:00)
--- NOTE | 2016-05-11 16:58 | Family Medicine Progress Note ---
Progress Note Date of Service May 11, 2016. Subjective Pt evaluation today including: conversation w/ patient, physical exam, lab review Voiding: powell catheter in place Patient was very drowsy and lethargic. Awakens upon my exam. He would nod his head to answer my questions. He is on 2L NC. Additional Comments: couldn't obtain given the patient's condition Medications Current Inpatient Medications Medications (Trade) Dose Ordered Sig/Eddie Route Start Time Stop Time Status Last Admin Dose Admin Atorvastatin Calcium (Lipitor Tab) 80 mg DAILY PO 05/11/16 09:00 06/10/16 08:59 Carbidopa/Levodopa (Sinemet 25/ 100MG Tab) 2 tab QID PO 05/11/16 09:00 06/10/16 08:59 Digoxin (Lanoxin Tab) 0.125 mg DAILY@1600 PO 05/11/16 16:00 06/10/16 15:59 Finasteride (Proscar Tab) 5 mg HS PO 05/11/16 21:00 06/10/16 20:59 Insulin Aspart (novoLOG ASPART) 15 units QPM SQ 05/11/16 21:00 06/10/16 20:59 Losartan Potassium (coZAAR TAB) 12.5 mg DAILY PO 05/11/16 09:00 06/10/16 08:59 Future Hold Methenamine Hippurate (Urex Tab) 1 gm BID PO 05/11/16 09:00 05/21/16 08:59 Multivitamins/ Minerals (Multivitamin W/ Minerals Tab) 1 tab DAILY PO 05/11/16 09:00 06/10/16 08:59 Potassium Chloride (Klor-Con Tab) 20 meq QID PO 05/11/16 09:00 06/10/16 08:59 Pramipexole Dihydrochloride (miraPEX TAB) 0.25 mg TID PO 05/11/16 09:00 06/10/16 08:59 Selegiline HCl (Eldepryl Cap) 5 mg DAILY PO 05/11/16 09:00 06/10/16 08:59 Senna/Docusate Sodium (Senokot S Tab) 2 tab DAILY PRN PO 05/10/16 22:15 06/09/16 22:14 Mirtazapine (Remeron Solutab) 30 mg HS PO 05/11/16 21:00 06/10/16 20:59 Acetaminophen 650 mg 650 mg Q4H PRN PO 05/10/16 22:15 06/09/16 22:14 Pantoprazole Sodium/Syringe (Protonix Inj/ Syringe) 10 ml @ 5 mls/min DAILY@1100 IV 05/11/16 11:00 06/10/16 10:59 05/11/16 11:24 5 MLS/MIN Morphine Sulfate (MoRPHine SULFATE INJ) 2 mg Q2H PRN IV 05/10/16 22:15 05/24/16 22:14 Miscellaneous Information (Pharmacist Discharge Med Rec Consult) 1 ea UD PRN N/A 05/10/16 22:15 06/09/16 22:14 Insulin Aspart SLIDING SCALE G... ACHS SC 05/11/16 06:45 06/10/16 06:59 Sodium Chloride 1,000 ml @ 75 mls/hr [id number] IV 05/11/16 12:00 06/10/16 11:59 05/11/16 13:23 75 MLS/HR Ceftriaxone Sodium/Dextrose (Rocephin Inj/ Dextrose Add-[place] 50ML) 50 ml @ 100 mls/hr Q24H IV 05/11/16 13:00 05/21/16 12:59 05/11/16 13:23 100 MLS/HR Metoprolol Tartrate 2.5 mg 2.5 mg Q6H IV. 05/11/16 13:00 06/10/16 12:59 05/11/16 13:26 2.5 MG Acetaminophen/ Empty Bag (Ofirmev IV/ Empty Iv Bag 100ml) 65 ml @ 260 mls/hr Q6H PRN IV 05/11/16 12:45 06/10/16 12:44 Heparin Sodium (Porcine) (Heparin Sq 5000 Unit/0.5ml) 5,000 unit Q12 SQ 05/12/16 09:00 06/11/16 08:59 Enteral Nutritional Formula (Fibersource HN) 1,000 ml UD PO 05/12/16 09:00 06/11/16 08:59 Objective Vital Signs Date Time Temp Pulse Resp B/P Pulse Ox O2 Delivery O2 Flow Rate FiO2 05/11/16 15:15 101 22 114/75 94 Nasal Cannula 2.0 05/11/16 14:15 96 25 119/74 95 Nasal Cannula 2.0 05/11/16 13:26 94 113/71 05/11/16 13:15 94 26 111/70 95 Nasal Cannula 2.0 05/11/16 12:15 37.3 100 28 120/75 95 Nasal Cannula 2.0 05/11/16 12:00 Nasal Cannula 2.0 05/11/16 11:15 96 24 114/75 95 Nasal Cannula 2.0 05/11/16 10:15 103 10 101/68 94 Nasal Cannula 2.0 05/11/16 09:15 107 10 113/73 96 Nasal Cannula 2.0 05/11/16 08:15 94 20 101/66 98 Nasal Cannula 2.0 05/11/16 08:00 Nasal Cannula 2.0 05/11/16 07:15 37.1 92 16 99/68 95 Nasal Cannula 2.0 05/11/16 06:15 93 20 117/75 97 Nasal Cannula 2.0 05/11/16 06:00 91 14 112/69 95 Nasal Cannula 2.0 05/11/16 05:45 88 12 109/69 96 Nasal Cannula 2.0 05/11/16 05:15 89 14 115/82 98 Nasal Cannula 2.0 05/11/16 04:45 93 18 124/86 95 Nasal Cannula 2.0 05/11/16 04:15 90 17 110/77 97 Nasal Cannula 2.0 05/11/16 04:00 Nasal Cannula 2.0 05/11/16 04:00 36.7 86 16 128/82 96 Nasal Cannula 2.0 05/11/16 03:45 89 22 99/78 96 Nasal Cannula 2.0 05/11/16 03:15 88 16 103/74 96 Nasal Cannula 2.0 05/11/16 02:45 84 20 107/74 95 Nasal Cannula 2.0 05/11/16 02:15 88 14 98/74 98 Nasal Cannula 2.0 05/11/16 02:00 85 16 101/70 96 Nasal Cannula 2.0 05/11/16 01:45 86 15 104/68 97 Nasal Cannula 2.0 05/11/16 01:28 87 20 99/70 94 05/11/16 01:15 36.4 92 22 107/76 96 Nasal Cannula 2.0 05/11/16 01:13 89 14 107/76 96 05/11/16 01:06 82 12 104/65 95 05/11/16 01:00 36.4 92 26 109/76 96 Nasal Cannula 2.0 05/11/16 00:45 93 20 120/85 92 Nasal Cannula 2.0 05/11/16 00:15 91 20 118/83 97 Nasal Cannula 2.0 05/11/16 00:02 104 20 136/92 96 Nasal Cannula 2.0 05/10/16 23:31 92 3 94 Nasal Cannula 2.0 05/10/16 23:28 113/85 05/10/16 23:16 88 2 96 05/10/16 23:13 112/74 05/10/16 23:01 87 6 97 05/10/16 22:58 115/85 05/10/16 22:46 85 3 94 05/10/16 22:44 114/73 05/10/16 22:31 85 3 92 05/10/16 22:28 111/74 05/10/16 22:16 88 6 97 05/10/16 22:13 109/82 05/10/16 22:01 90 6 97 05/10/16 22:00 89 24 120/81 96 Nasal Cannula 2.0 05/10/16 22:00 87 21 120/81 96 Nasal Cannula 2.0 05/10/16 21:57 97 Nasal Cannula 2.0 05/10/16 21:53 81 18 88 Room Air 05/10/16 21:48 86 20 110/88 92 05/10/16 21:48 95 24 110/88 96 Nasal Cannula 2.0 05/10/16 21:43 94 28 95 05/10/16 21:40 94 24 116/92 96 Nasal Cannula 2.0 05/10/16 21:39 92 20 116/92 93 05/10/16 21:33 94 18 95 05/10/16 21:28 104 22 143/105 92 05/10/16 21:23 95 30 91 05/10/16 21:18 90 18 96 05/10/16 21:13 92 20 96 05/10/16 21:08 90 20 91 05/10/16 21:03 89 20 92 05/10/16 20:58 90 20 96 05/10/16 20:48 89 12 119/85 97 Room Air 05/10/16 20:45 98 30 125/94 94 Room Air 05/10/16 20:42 101 05/10/16 20:42 98 30 125/94 94 Room Air Physical Exam General Appearance: no apparent distress Neck: supple Respiratory/Chest: chest non-tender, no respiratory distress, no accessory muscle use Cardiovascular: regular rate, rhythm (Pacemaker/AICD), no edema Abdomen: non tender, soft Extremities: no pedal edema Neurologic/Psychiatric: + pertinent finding (patient able to raise both legs and arm against gravity but not against resistant, good booking manager stength b/l, no facial droop was noted. ) Skin: warm/dry, no rash Laboratory Results Results Past 24 Hours Test 05/10/16 20:13 05/10/16 20:37 05/10/16 20:54 05/11/16 05:21 Range/Units White Blood Count 8.08 7.70 4.8-10.8 K/uL Red Blood Count 5.18 5.27 4.7-6.1 M/uL Hemoglobin 16.2 15.6 14.0-18.0 g/dL Hematocrit 46.6 46.9 42-52 % Mean Corpuscular Volume 90.0 89.0 80-100 fL Mean Corpuscular Hemoglobin 31.3 29.6 25-34 pg Mean Corpuscular Hemoglobin Concent 34.8 33.3 32-36 g/dl RDW Standard Deviation 48.5 47.6 36.4-46.3 fL RDW Coefficient of Variation 14.7 14.7 11.5-14.5 % Platelet Count 143 135 130-400 K/uL Mean Platelet Volume 11.2 11.8 7.4-10.4 fL Prothrombin Time 12.4 9.0-12.0 SECONDS Prothromb Time International Ratio 1.2 0.9-1.1 Activated Partial Thromboplast Time 26.7 21.0-31.0 SECONDS Partial Thromboplastin Ratio 1.0 Sodium Level 137 143 136-145 mmol/L Potassium Level 4.9 4.2 3.5-5.1 mmol/L Chloride Level 101 106 98-107 mmol/L Carbon Dioxide Level 27 28 21-32 mmol/L Anion Gap 9.0 18.0 9.0 3-11 mmol/L Blood Urea Nitrogen 39 33 7-18 mg/dl Creatinine 1.60 1.50 0.60-1.40 mg/dl Est Creatinine Clear Calc Drug Dose 44.4 47.4 ml/min Estimated GFR () 49.2 53.1 Estimated GFR (Non- 42.4 45.9 BUN/Creatinine Ratio 24.1 22.1 10-20 Random Glucose 292 120 70-99 mg/dl Calcium Level 9.1 8.8 8.5-10.1 mg/dl Total Bilirubin 0.6 0.2-1 mg/dl Aspartate Amino Transf (AST/SGOT) 15 15-37 U/L Alanine Aminotransferase (ALT/SGPT) 9 12-78 U/L Alkaline Phosphatase 142 45-117 U/L Total Creatine Kinase 275 39-308 U/L Creatine Kinase MB 7.7 0.5-3.6 ng/ml Creatine Kinase MB Ratio 2.8 0-3.0 Total Protein 7.2 6.4-8.2 gm/dl Albumin 3.6 3.4-5.0 gm/dl Globulin 3.6 2.5-4.0 gm/dl Albumin/Globulin Ratio 1.0 0.9-2 Chemistry Specimen Hemolysis Bedside Hemoglobin 15.6 14.0-18.0 g/dl Bedside Hematocrit 46 42-52 % Bedside Sodium 137 135-144 mEq/L Bedside Potassium 4.9 3.3-5.0 mEq/L Bedside Chloride 98 101-112 mEq/L Bedside Total CO2 28 24-31 mEq/l Bedside Blood Urea Nitrogen 41 7-18 mg/dl Bedside Creatinine 1.5 0.6-1.3 mg/dl Bedside Glucose (other) 292 70-99 mg/dl Bedside Ionized Calcium (Johnathan) 1.19 1.12-1.32 mmol/l Bedside Prothrombin Time INR 1.2 0.9-1.1 Neutrophils (%) (Auto) 71.2 % Lymphocytes (%) (Auto) 17.7 % Monocytes (%) (Auto) 9.7 % Eosinophils (%) (Auto) 0.9 % Basophils (%) (Auto) 0.4 % Neutrophils # (Auto) 5.48 1.4-6.5 K/uL Lymphocytes # (Auto) 1.36 1.2-3.4 K/uL Monocytes # (Auto) 0.75 0.11-0.59 K/uL Eosinophils # (Auto) 0.07 0-0.5 K/uL Basophils # (Auto) 0.03 0-0.2 K/uL Immature Granulocyte % (Auto) 0.1 % Immature Granulocyte # (Auto) 0.01 0.00-0.02 K/uL Magnesium Level 2.5 1.8-2.4 mg/dl Triglycerides Level 137 0-150 mg/dl Cholesterol Level 153 0-200 mg/dl HDL Cholesterol 39 mg/dl LDL Cholesterol, Calculated 87 mg/dl VLDL Cholesterol, Calculated 27 mg/dl Cholesterol/HDL Ratio 3.9 Test 05/11/16 05:25 05/11/16 11:15 05/11/16 11:42 05/11/16 13:16 Range/Units Bedside Glucose 116 158 70-99 mg/dl Troponin I 0.247 0-0.045 ng/ml Digoxin Level 1.0 0.8-2.0 ng/ml Assessment and Plan This is a 70 y/o M w/ hx CHF (EF of 15%), pace maker /AICD, DM, and Parkinson's presented to the ED with R sided weakness and L facial droop [address] showed acute L insular CVA and evaluated promptly by the telestroke service. TPA was administered. 1. Acute Left frontal lobe stroke with expressive aphasia - Repeated CT showed: 1. Large acute left frontal lobe infarct. 2. No evidence of acute hemorrhage 3. Old right occipital lobe infarct - Repeat CT today at 2200 - Right sided weakness slightly improved - Continue Lipitor 80 - All the hypertensive medications are on hold - Can't have MRI due to pacer-defib - Neuro check per stroke protocol - Patient is NPO - Carotid US showed no carotid stenosis. - Neurology was consulted and will appreciate their recommendations. 2. Severe chronic systolic congested heart failure - EF is <15% - Holding losartan and spironolactone for now. - Start Lopressor 2.5mg IV q6h - Echo is ordered and showed possible thrombus in the IVC. Since he received tPA and also it could an old thrombus, at this point will not start any anticoagulant. Will continue to monitor. - Venous Doppler b/l LE is ordered 3. A. fib - ASA on hold - No anticoagulant at this time. - Continue Digoxin 0.125mg - Start heparin BID tomorrow am after repeat CT - Echo is ordered and showed possible thrombus in the IVC. Since he received tPA and also it could an old thrombus, at this point will not start any anticoagulant. Will continue to monitor. - Venous Doppler b/l LE is ordered 4. DM - on sliding scale and novolog 15unit qam - A1c is pending 4. CKD stage 3 - Stable, creatinine is 1.50 5. Complicated UTI - Patient has urethral stricture and self cath at home - Rocephin 1g IV 6. Parkinson's disease - Carbidopa/Levodopa on hold. - Selegiline on hold 7. Restless leg syndrome - Pramipexole on hold 8. DVT prophylaxis - contraindication after tPA for 24hrs - will start heparin BID tomorrow am 9. Code status - DNR Reviewed: Pt Seen/Exam by Me, JUNE Notes, Labs, RAD, EKG History Resident Physician Supervision Note: I was present with Dr. Cordova during the history and exam. I discussed the case with the resident and agree with the findings and plan as documented in the note. Any exceptions or clarifications are listed here: Pt drowsy, does wake up for a few seconds to verbal stimuli and can shake head yes or no and follow some commands but then falls back asleep. some hiccups. Discussed case and guarded prognosis with , daughter. Discussed case at length with Drs. Powell and Dr. Selby. Vitals reviewed, BPs on low side for perfusion and IVFs were started, low grade temp Sitting at 30 degrees in bed, drowsy but wakes up to verbal stimuli, some hiccups, occasional big deep breaths but not definite Cheynne-Shah breathing rrr no mgr ctab no wcr Neuro: pupils equal and reactive, difficult to test EOM, does not extrude tongue , strength significantly decreased throughout right side of body but is able to have 3/5 strength in right hand and arm, right leg with 2/5 strength in knee flexion and extension, 1-2/5 in right hip flexors, sensation not tested due to difficulty communicating. +expressive aphasia. Ext no edema A/P: 70 yo male with a h/o severe nonischemic chronic systolic and diastolic CHF with EF < 15%,grade III diastolic dysfunction, PA-fib not on AC presumably due to Parkinson's/risk of fall, pacer-defib, HTN, dyslipidemia, CKD stage III, chronic urethral stricture requiring self-cath tid at home, BPH, DMII on intermediate teacher insulin, Parkinson's disease, RLS, here with large left frontal ischemic CVA s/p TPA administration in ER on presentation. CVA-s/p TPA, large territory with devastating effects right hemiparesis, exp aphasia, at high risk for hemorrhagic conversion and/or herniation. -repeat head CT tonight to assess brain edema and for hemorrhage -has underlying A-fib, but holding all anticoag and antiplatelets given recent TPA -NPO and will place feeding tube after 24 hr jesus of TPA administration -ECHO shows IVC thrombus as well which is a complicating factor, no LV thrombus seen--> seems more likely to be old given it did not dissipate with TPA -PT/OT evals when stable -BP management, continue IVFs for low BPs for now -Neuro and CCM consults appreciated Severe chronic sys/diast CHF, nonischemic CM, HTN, dyslipidemia, AICD/pacer for severe CHF--> spoke with Cardio and start low dose IV lopressor for tachycardia for now, holding other cardiac meds -hold ASA for TPA hold digoxin until Dobbhoff placed -consider AC for A_fib when safe to do so -not on diuretics at this time -restart Toprol XL 75 once daily when able to -Cardio consut appreciated Parkinson's, RLS-restart meds when able to with feeding tube CKD stage III-chronic and stable 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
[2016-05-11] MEDS ORDERED: INSULIN ASPART 100 UNITS/ML 3 ML PEN SQ SCH (21:00)
[2016-05-11] MEDS ORDERED: ASPIRIN 325 MG ECTAB PO SCH (21:00)
[2016-05-11] MEDS ORDERED: FINASTERIDE 5 MG TAB PO SCH (21:00)
--- NOTE | 2016-05-11 22:22 | DIAGNOSTIC IMAGING REPORT ---
CT HEAD WITHOUT CONTRAST (CT) CLINICAL HISTORY: Stroke. Patient receiving TPN. COMPARISON STUDY: 05/09/2016 at 7:00 AM. TECHNIQUE: Axial CT of the brain is performed from the vertex to the skull base. IV contrast was not administered for this examination. CT DOSE: 712.55 mGy.cm FINDINGS: There is evidence for hemorrhagic conversion of the patient's left frontal infarct. A small amount of subarachnoid hemorrhage is also visualized within the left parietal lobe and left frontal lobe. There is an old right occipital lobe infarct. There are patchy white matter hypodensities likely on a small vessel basis. There is no evidence of pathologic ventricular dilatation. There is partial opacification of the right maxillary sinus. IMPRESSION: Since the prior study, the patient has developed hemorrhage into the area of left frontal infarction. Addition there are areas of subarachnoid hemorrhage within the left frontal and parietal lobes. This finding will be called to the floor. Electronically signed by: Nato Echeverria M.D. 05/11/2016 10:20 PM Dictated Date/Time: 05/11/2016 10:17 PM
[2016-05-11] MEDS ORDERED: NiCARDipine IV 25 MG in SODIUM CHLORIDE 0.9% 250ML 240 ML IV PRN (22:29)
[2016-05-11] MEDS: MIRTAZAPINE SOLTAB 15 MG PO SCH (22:54)
[2016-05-12] VITALS (19 sets, daily range): BP systolic 110–134; BP diastolic 65–86; PULSE 91–116; TEMP 36.4–37.3; O2SAT 90–96
[2016-05-12] MEDS: SODIUM CHLORIDE 0.9% 1000ML 1,000 ML IV SCH ×2 (01:03→14:40)
[2016-05-12] MEDS: METOPROLOL TARTRATE 1 MG/ML VIAL IV. SCH ×3 (01:04→21:36)
[2016-05-12 05:53] LABS: BASO % 0.2 %; BASO ABS # 0.02 K/uL (0-0.2); COMPLETE YES; EOS % 0.1 %; HEMATOCRIT 47.5 % (42-52); IG% 0.3 %; LYMPH % 11.4 %; LYMPH ABS # 1.29 K/uL (1.2-3.4); MEAN CELL VOLUME 90.5 fL (80-100); MEAN CORPUSCULAR HEMOGLOBIN 30.1 pg (25-34); MEAN CORPUSCULAR HGB CONC 33.3 g/dl (32-36); MEAN PLATELET VOLUME 10.9 fL (7.4-10.4); MONO % 8.5 %; NEUT % 79.5 %; PLATELET COUNT 131 K/uL (130-400); RED BLOOD COUNT 5.25 M/uL (4.7-6.1); WHITE BLOOD COUNT 11.36 K/uL (4.8-10.8)
[2016-05-12 06:20] LABS: BUN/CREATININE RATIO 15.6 (10-20); CALCIUM 9.2 mg/dl (8.5-10.1); CREATININE 1.6 mg/dl (0.60-1.40); MAGNESIUM 2.1 mg/dl (1.8-2.4); POTASSIUM 4.7 mmol/L (3.5-5.1)
[2016-05-12] MEDS: INSULIN ASPART 100 UNITS/ML 3 ML PEN SC SCH ×4 (06:21→21:35)
[2016-05-12 06:45] LABS: ESTIMATED AVERAGE GLUCOSE 232 mg/dl; HA1C FLAG Normal (Normal)
--- NOTE | 2016-05-12 07:08 | DIAGNOSTIC IMAGING REPORT ---
KUB HISTORY: NG tube placement. COMPARISON: None. FINDINGS: The bowel gas pattern is unremarkable. There are no dilated loops of small bowel to suggest an obstruction. Nasogastric tube terminates in the body of the stomach. Left-sided pacemaker/defibrillator is noted. No pneumoperitoneum or pneumatosis. IMPRESSION: Nasogastric tube terminates in the body of the stomach. Electronically signed by: Marlon Dhillon M.D. 05/12/2016 7:06 AM Dictated Date/Time: 05/12/2016 7:05 AM
--- NOTE | 2016-05-12 07:16 | DIAGNOSTIC IMAGING REPORT ---
BILATERAL LOWER EXTREMITY VENOUS DOPPLER HISTORY: IVC thrombus. Assess for DVT. COMPARISON STUDY: Venous Doppler 12/15/2013. FINDINGS: There is normal compressibility, flow, and augmentation within the bilateral lower extremity deep venous systems. IMPRESSION: No DVT within the right or left lower extremity. Electronically signed by: Marlon Dhillon M.D. 05/12/2016 7:14 AM Dictated Date/Time: 05/12/2016 7:14 AM
--- NOTE | 2016-05-12 08:54 | Neurology Progress Notes ---
Neurology Progress Note Date of Service May 12, 2016. Subjective Patient slept more soundly overnight last night. There has been no seizure activity noted by the nursing staff. Yesterday, he was very alert in the morning but less so in the evening. This morning he is somewhat sleepy. CT scan of the head from last night shows an evolving rather large left middle cerebral artery stroke extending frontal and parietal head regions with some hemorrhagic transformation. There is some local edema but no midline shift. Echocardiogram revealed a small possibly new and mobile inferior vena cava thrombus The patient remains in paced atrial fibrillation Objective Date Time Temp Pulse Resp B/P Pulse Ox O2 Delivery O2 Flow Rate FiO2 05/12/16 05:58 100 26 110/75 93 Nasal Cannula 2.0 05/12/16 05:28 103 29 117/75 96 05/12/16 04:58 109 24 115/75 95 Nasal Cannula 2.0 05/12/16 04:00 Nasal Cannula 2.0 05/12/16 03:58 37.1 106 22 125/77 96 Nasal Cannula 2.0 05/12/16 03:28 105 23 125/74 95 Nasal Cannula 2.0 05/12/16 02:58 102 14 128/74 95 Nasal Cannula 2.0 05/12/16 02:28 104 19 117/71 96 Nasal Cannula 2.0 05/12/16 01:58 104 28 114/65 95 Nasal Cannula 2.0 05/12/16 01:29 99 14 115/68 95 Nasal Cannula 2.0 05/12/16 01:04 101 112/82 05/12/16 00:58 111 17 112/82 96 Nasal Cannula 2.0 05/12/16 00:28 107 14 127/79 94 Nasal Cannula 2.0 05/12/16 00:00 Nasal Cannula 2.0 05/11/16 23:58 37.7 106 22 136/80 95 Nasal Cannula 2.0 05/11/16 23:28 107 18 127/74 95 Nasal Cannula 2.0 05/11/16 22:58 99 25 113/74 94 Nasal Cannula 2.0 05/11/16 22:28 95 25 109/65 91 Nasal Cannula 2.0 05/11/16 21:15 94 16 110/64 95 Nasal Cannula 2.0 05/11/16 20:15 106 27 118/79 94 Nasal Cannula 2.0 05/11/16 20:09 101 118/79 05/11/16 20:00 Nasal Cannula 2.0 05/11/16 19:15 36.7 104 16 106/68 94 Nasal Cannula 2.0 05/11/16 18:15 96 26 106/67 92 Nasal Cannula 2.0 05/11/16 17:15 92 12 110/77 95 Nasal Cannula 2.0 05/11/16 16:15 37.3 104 28 120/74 94 Nasal Cannula 2.0 05/11/16 16:00 Nasal Cannula 2.0 05/11/16 15:15 101 22 114/75 94 Nasal Cannula 2.0 05/11/16 14:15 96 25 119/74 95 Nasal Cannula 2.0 05/11/16 13:26 94 113/71 05/11/16 13:15 94 26 111/70 95 Nasal Cannula 2.0 05/11/16 12:15 37.3 100 28 120/75 95 Nasal Cannula 2.0 05/11/16 12:00 Nasal Cannula 2.0 05/11/16 11:15 96 24 114/75 95 Nasal Cannula 2.0 05/11/16 10:15 103 10 101/68 94 Nasal Cannula 2.0 05/11/16 09:15 107 10 113/73 96 Nasal Cannula 2.0 Last 24 Hours Test 05/11/16 11:15 05/11/16 11:42 05/11/16 13:16 05/11/16 17:01 Bedside Glucose 158 mg/dl 173 mg/dl Troponin I 0.247 ng/ml Digoxin Level 1.0 ng/ml Test 05/11/16 21:21 05/12/16 05:30 05/12/16 06:16 Bedside Glucose 173 mg/dl 219 mg/dl White Blood Count 11.36 K/uL Red Blood Count 5.25 M/uL Hemoglobin 15.8 g/dL Hematocrit 47.5 % Mean Corpuscular Volume 90.5 fL Mean Corpuscular Hemoglobin 30.1 pg Mean Corpuscular Hemoglobin Concent 33.3 g/dl Platelet Count 131 K/uL Mean Platelet Volume 10.9 fL Neutrophils (%) (Auto) 79.5 % Lymphocytes (%) (Auto) 11.4 % Monocytes (%) (Auto) 8.5 % Eosinophils (%) (Auto) 0.1 % Basophils (%) (Auto) 0.2 % Neutrophils # (Auto) 9.05 K/uL Lymphocytes # (Auto) 1.29 K/uL Monocytes # (Auto) 0.96 K/uL Eosinophils # (Auto) 0.01 K/uL Basophils # (Auto) 0.02 K/uL RDW Standard Deviation 48.2 fL RDW Coefficient of Variation 14.7 % Immature Granulocyte % (Auto) 0.3 % Immature Granulocyte # (Auto) 0.03 K/uL Sodium Level 144 mmol/L Potassium Level 4.7 mmol/L Chloride Level 107 mmol/L Carbon Dioxide Level 20 mmol/L Anion Gap 17.0 mmol/L Blood Urea Nitrogen 25 mg/dl Creatinine 1.60 mg/dl Est Creatinine Clear Calc Drug Dose 44.4 ml/min Estimated GFR () 49.2 Estimated GFR (Non- 42.4 BUN/Creatinine Ratio 15.6 Random Glucose 241 mg/dl Calcium Level 9.2 mg/dl Magnesium Level 2.1 mg/dl Imaging: CT HEAD WITHOUT CONTRAST (CT) CLINICAL HISTORY: Stroke. Patient receiving TPN. COMPARISON STUDY: 05/09/2016 at 7:00 AM. TECHNIQUE: Axial CT of the brain is performed from the vertex to the skull base. IV contrast was not administered for this examination. CT DOSE: 712.55 mGy.cm FINDINGS: There is evidence for hemorrhagic conversion of the patient's left frontal infarct. A small amount of subarachnoid hemorrhage is also visualized within the left parietal lobe and left frontal lobe. There is an old right occipital lobe infarct. There are patchy white matter hypodensities likely on a small vessel basis. There is no evidence of pathologic ventricular dilatation. There is partial opacification of the right maxillary sinus. IMPRESSION: Since the prior study, the patient has developed hemorrhage into the area of left frontal infarction. Addition there are areas of subarachnoid hemorrhage within the left frontal and parietal lobes. This finding will be called to the floor. Exam: With voice and gentle shake he will open his eyes and has a front gaze. He will look to the left spontaneously. It is a little more difficult for him to look to the right. Pupils are 3 mm bilaterally and reactive to light. He'll open his mouth in an attempt to stick out his tongue, but will not protrude it completely. He will press clippings cutter and paster and release my hand on the left. He can hold his right arm up some some mild drift but he cannot hold up his right leg. There is decreased tone in the right leg and reasonable tone in the right arm. There is increased tone in the left arm and leg. Strength seems reasonable in the left arm and leg. Reflexes are 1/4 throughout. Toes are upgoing on plantar stimulation on the right. Current Inpatient Medications Medications (Trade) Dose Ordered Sig/Eddie Route Start Time Stop Time Status Last Admin Dose Admin Atorvastatin Calcium (Lipitor Tab) 80 mg DAILY PO 05/11/16 09:00 06/10/16 08:59 Carbidopa/Levodopa (Sinemet 25/ 100MG Tab) 2 tab QID PO 05/11/16 09:00 06/10/16 08:59 Digoxin (Lanoxin Tab) 0.125 mg DAILY@1600 PO 05/11/16 16:00 06/10/16 15:59 Finasteride (Proscar Tab) 5 mg HS PO 05/11/16 21:00 06/10/16 20:59 Insulin Aspart (novoLOG ASPART) 15 units QPM SQ 05/11/16 21:00 06/10/16 20:59 Losartan Potassium (coZAAR TAB) 12.5 mg DAILY PO 05/11/16 09:00 06/10/16 08:59 Future Hold Methenamine Hippurate (Urex Tab) 1 gm BID PO 05/11/16 09:00 05/21/16 08:59 Multivitamins/ Minerals (Multivitamin W/ Minerals Tab) 1 tab DAILY PO 05/11/16 09:00 06/10/16 08:59 Potassium Chloride (Klor-Con Tab) 20 meq QID PO 05/11/16 09:00 06/10/16 08:59 Pramipexole Dihydrochloride (miraPEX TAB) 0.25 mg TID PO 05/11/16 09:00 06/10/16 08:59 Selegiline HCl (Eldepryl Cap) 5 mg DAILY PO 05/11/16 09:00 06/10/16 08:59 Senna/Docusate Sodium (Senokot S Tab) 2 tab DAILY PRN PO 05/10/16 22:15 06/09/16 22:14 Mirtazapine (Remeron Solutab) 30 mg HS PO 05/11/16 21:00 06/10/16 20:59 Acetaminophen 650 mg 650 mg Q4H PRN PO 05/10/16 22:15 06/09/16 22:14 Pantoprazole Sodium/Syringe (Protonix Inj/ Syringe) 10 ml @ 5 mls/min DAILY@1100 IV 05/11/16 11:00 06/10/16 10:59 05/11/16 11:24 5 MLS/MIN Morphine Sulfate (MoRPHine SULFATE INJ) 2 mg Q2H PRN IV 05/10/16 22:15 05/24/16 22:14 Miscellaneous Information (Pharmacist Discharge Med Rec Consult) 1 ea UD PRN N/A 05/10/16 22:15 06/09/16 22:14 Insulin Aspart SLIDING SCALE G... ACHS SC 05/11/16 06:45 06/10/16 06:59 05/12/16 06:21 2 UNITS Sodium Chloride 1,000 ml @ 75 mls/hr [id number] IV 05/11/16 12:00 06/10/16 11:59 05/12/16 01:03 75 MLS/HR Ceftriaxone Sodium/Dextrose (Rocephin Inj/ Dextrose Add-Archie 50ML) 50 ml @ 100 mls/hr Q24H IV 05/11/16 13:00 05/21/16 12:59 05/11/16 13:23 100 MLS/HR Metoprolol Tartrate 2.5 mg 2.5 mg Q6H IV. 05/11/16 13:00 06/10/16 12:59 05/12/16 01:04 2.5 MG Acetaminophen/ Empty Bag (Ofirmev IV/ Empty Iv Bag 100ml) 65 ml @ 260 mls/hr Q6H PRN IV 05/11/16 12:45 06/10/16 12:44 Enteral Nutritional Formula 1000 ml 1,000 ml UD PO 05/12/16 09:00 06/11/16 08:59 Nicardipine HCl/ Sodium Chloride (Cardene Iv/Nss 250ml) 250 ml @ 0 mls/hr Q0M PRN IV 05/11/16 22:29 06/10/16 22:28 Impression 1. Large (at least 6 cm) use left middle cerebral artery distribution acute stroke with hemorrhagic transformation. There is some localized edema but no midline shift. It extends from frontal to parietal lobe. Etiology of the stroke is not apparent and could be embolic or thrombotic. The patient has a history of atrial fibrillation with pacemaker and was on aspirin prior to admission. He was on aspirin prior to admission as his only anticoagulant or antiplatelet medication He received TPA on admission at 2133 hrs. on May 10. Clinically, currently, he has right hemiparesis leg greater than arm and face ( he is in fact I really cannot ascertain that there is a facial droop on the right). He has a severe expressive aphasia but he can comprehend and follow some simple one-step commands NIH stroke scale is 10. 2. Parkinson's disease He is supposed to be on Sinemet 25/100, 2 tablets 4 times daily and selegiline 5 mg daily. He has not received these medications for 48 hours and he is likely more rigid than usual currently. He does not have any resting tremor. 3. Restless leg syndrome He is currently on pramipexole 0.25 mg 3 times a day. This will also help his parkinsonism. 4. Underlying mild dementia, chronic 5. Atrial fibrillation with pacemaker. History of congestive heart failure. 6. 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 7. Echocardiogram with 0.5 cm IVC clot probably mobile and possibly new Plan I have discussed this case with the patient's and with the life advisor at length. This is a complicated case and treatment is limited. On the one hand, he has hemorrhagic transformation to his rather large stroke which would preclude using anticoagulation or antiplatelet medication. On the other hand, he has a history of atrial fibrillation, but more importantly, a small but possibly new and mobile inferior vena cava clot. This clot could dislodge or become larger. He is on nothing to prevent this. Anticoagulation would likely make his hemorrhagic stroke a lot worse. Clot retrieval the embolectomy is a possibility although the procedure itself has risk for his stroke. Unfortunately, there is little we can do in this institution for this patient regarding this hemorrhage versus clot situation 1. I recommend discussing this case with the stroke team at [facility] for possible transfer regarding the limited treatment options. 2. Initiate carbidopa levodopa 25/100, 1 tablet 4 times a day via NG tube This can be increased to his usual 2 tablets 4 times a day depending on his clinical course For now, I would hold on initiating selegiline or even pramipexole 3. Range of motion exercises for his legs. 4. Speech therapy 5. Follow with serial CT scans of the head regarding edema and hemorrhage.
[2016-05-12] MEDS ORDERED: FIBERSOURCE HN 1000ML BAG PO SCH ×2 (09:00)
[2016-05-12] MEDS ORDERED: HEPARIN SOD 5000 UNIT/0.5 ML CARP SQ SCH (09:00)
[2016-05-12] MEDS ORDERED: METOPROLOL TARTRATE 1 MG/ML VIAL IV ONE (10:30)
[2016-05-12] MEDS: PANTOprazole INJ 40 MG in SYRINGE 0 ML IV SCH (11:10)
[2016-05-12] MEDS: SELEGILINE HCL 5 MG CAP PO SCH (11:11)
[2016-05-12] MEDS: CEROVITE ADV FORMULA TAB PO SCH (11:11)
[2016-05-12] MEDS: METHENAMINE HIPPURATE 1 GM TAB PO SCH ×2 (11:11→21:33)
[2016-05-12] MEDS: ATORVASTATIN 40 MG TAB PO SCH (11:12)
[2016-05-12] MEDS: CARBIDOPA/LEVODOPA 25/100MG TAB PO SCH ×3 (11:12→18:08)
[2016-05-12] MEDS: PRAMIPEXOLE DIHYDROCHLORIDE 0.25MG TAB PO SCH ×3 (11:13→21:33)
[2016-05-12] MEDS: POTASSIUM CHLORIDE 20 MEQ TABCR PO SCH ×2 (11:13→13:00)
--- NOTE | 2016-05-12 13:05 | CARDIOLOGY CONSULTATION REPORT ---
DATE OF CONSULTATION: 05/12/2016 REASON FOR CONSULTATION: 1. Chronic systolic CHF. 2. Ischemic cardiomyopathy, LVEF 15%. HISTORY OF PRESENT ILLNESS: Mr. Keith is a very pleasant 70-year-old white male with a history of longstanding CAD, Ischemic Cardiomyopathy (LVEF less than 15%), status post AICD, hypertension, hypercholesterolemia, insulin requiring type 2 diabetes mellitus, chronic systolic CHF and atrial fibrillation, who presented acutely to [facility] Emergency Room last evening after sudden onset of right-sided weakness and aphasia. He was noted to have a very large left middle cerebral artery stroke, which extended from the frontal lobe to the parietal lobe. He received thrombolytic last evening, and neurologic symptoms did not improve. He now appears to have hemorrhagic conversion although no midline shift. We are consulted because of chronic systolic CHF. The patient is currently lying in room 103, he follows verbal commands but is very somnolent. Does not answer any questions. His who was in the room denies that he has complained of any recent chest discomfort, angina pectoris, or shortness of breath. Thus far, his fluid balance is -1470 mL total and his body weight is down 4.1 kg in the past 24 hours. He is not eating but he is receiving IV fluids. MEDICATIONS (CURRENTLY): 1. Metoprolol tartrate 2.5 mg IV q. 6 hours. 2. Nicardipine drip. 3. Proscar 5 mg at bedtime. 4. NovoLog sliding scale insulin. 5. Remeron 30 mg at bedtime. 6. Digoxin 0.125 mg daily. 7. Ceftriaxone 1 g IV daily. 8. Tylenol 650 mg IV q. 6 hours p.r.n. for fever. 9. Normal saline 75 mL per hour. 10. Protonix 40 mg IV daily. 11. Senokot-S 2 tablets daily as needed for constipation. 12. Oral Tylenol p.r.n. 13. Morphine sulfate 2 mg IV q. 2 hours p.r.n. for pain. ALLERGIES: 1. PROPOXYPHENE. 2. SULFA ANTIBIOTICS. USUAL OUTPATIENT MEDICATIONS: 1. Aspirin 325 mg daily. 2. Lipitor 80 mg daily. 3. Bumex 2 mg b.i.d. 4. Sinemet 25/100 2 tablets 4 times daily. 5. Digoxin 0.125 mg daily. 6. Finasteride 5 mg daily. 7. Levemir 50 units subcutaneous injection at bedtime. 8. Losartan 25 mg 1/2 tablet daily. 9. Men's Multivitamin Plus 1 tablet daily. 10. Methenamine hippurate 1 g b.i.d. 11. Toprol-XL 50 mg 1-1/2 tablets daily. 12. NovoLog insulin 10 units subcutaneous injection daily before breakfast and lunch, 15 units at supper. 13. Potassium chloride 20 mEq q.i.d. 14. Pramipexole 0.25 mg t.i.d. 15. Selegiline 5 mg daily. 16. Spironolactone 25 mg daily. 17. Xopenex HFA 2 puffs p.o. q.i.d. p.r.n. PAST MEDICAL HISTORY: 1. Ischemic Cardiomyopathy, LVEF < 15%. Chronic systolic CHF. 2. CAD. 3. History of AICD placement. 4. Hypercholesterolemia. 5. Hypertension. 6. Insulin requiring type 2 diabetes mellitus. 7. Parkinson disease. 8. Grade 3 diastolic dysfunction. 9. Currently with possible IVC thrombus. 10. CVA with hemorrhagic conversion. 11. History of actinic keratosis. 12. Atrial fibrillation. 13. History of remote gastric ulcer. 14. BPH. 15. Restless leg syndrome. 16. History of squamous cell carcinoma of the skin. 17. History of urethral stricture. 18. History of prior UTIs. 19. History of hernia repair. 20. Status post tonsillectomy/adenoidectomy remotely. SOCIAL HISTORY: The patient is and lives with his . Does not use alcohol or tobacco. Lifelong nonsmoker. FAMILY HISTORY: Significant for CAD in his father and brother. There is also a family history of type 2 diabetes mellitus. PHYSICAL EXAMINATION: VITAL SIGNS: Temperature is 37.1 degree Celsius, pulse is 100 and predominantly ventricular paced. Respiratory rate is 22, blood pressure is 110/75, SpO2 is 93% on 2 liters oxygen via nasal cannula. I&O's -1470 mL total in the past 12 hours. Body weight 80.5 kg. GENERAL: The patient appears to be lying comfortably in room 103, arouses to verbal stimuli, appears to follow commands. Does not open his eyes voluntarily, does not speak. HEENT: No obvious facial droop. Head is atraumatic, normocephalic. Sclerae anicteric. Mucous membranes moist. NECK: Without thyromegaly, adenopathy or JVD. Jugular venous pressure is just above the clavicle, lying at a 15-degree angle. CHEST AND LUNGS: Reveal some bronchial breath sounds, no obvious wheezes or rales. CARDIOVASCULAR: S1 and S2 are slightly irregular, tachycardic at a rate of approximately 105 beats per minute. No obvious murmurs, gallops or rubs. PMI is laterally displaced. No lifts, heaves, or thrills. No abdominal, aortic or renal bruits. ABDOMEN: Bowel sounds are present. No masses, organomegaly or tenderness. NEUROLOGIC: Able to move left arm and left leg. Right side appears flaccid. Nonverbal. Current surveillance monitor reveals probable underlying AFib/atrial flutter with predominantly ventricular paced rhythm. LABORATORIES: White blood cell count is 1.36, hemoglobin 15.8 g/dL, hematocrit 47.5%, and platelet count is 131,000. Sodium is 144 mmol/L, potassium 4.7 mmol/L, BUN 25 mg/dL, and creatinine is 1.60 mg/dL. Random glucose 219 mg/dL. Total CK is 275 units per liter with CK-MB of 7.7 ng/mL. This represents less than 3% of total CK. Troponin I is 0.247 ng/mL. He has an acute left MCA territory infarct extending from parietal lobe to the frontal lobe, with hemorrhagic conversion. No midline shift. Echocardiogram 05/11/2016 shows an LVEF of less than 15% with severe global hypokinesis, grade 3 diastolic dysfunction, no significant valvular abnormalities. Possible IVC thrombus is present. ASSESSMENT: 1. Large middle cerebral artery territory cerebrovascular accident extending from the left frontal lobe to the left parietal lobe with evidence of hemorrhagic conversion. 2. Status post thrombolytic therapy. 3. Chronic systolic congestive heart failure, currently appears euvolemic to slightly hypervolemic. 4. Ischemic Cardiomyopathy with left ventricular ejection fraction less than 15% s/p automatic implantable cardioverter-defibrillator placement. 5. Coronary artery disease. 6. Atrial fibrillation/atrial flutter. 7. Hypertension, controlled. 8. Hypercholesterolemia. 9. Insulin requiring type 2 diabetes mellitus. 10. Parkinson's disease. 11. Diagnoses mentioned above. PLAN: 1. The patient does not appear to be in overt CHF. 2. We would recommend titrating Lopressor to 5 mg IV q. 6 hours due to his mildly elevated ventricular response rate. 3. Continue to closely monitor daily I&O's, body weights. 4. Resume Bumex at 0.5 mg IV daily - titrate as necessary. 5. Continue potassium supplementation when G-tube placed. 6. Resume spironolactone. 7. Resume losartan 12.5 mg daily when taking orally or through G-tube. 8. Resume high dose statin therapy via tube. 9. There is some consideration of sending this patient to [facility] for higher level care. 10. We will continue to follow along while hospitalized. NARAYAN
--- NOTE | 2016-05-12 13:56 | Critical Care Progress Note ---
Critical Care Progress Note Date of Service May 12, 2016. Attending Dr. Kam Subjective Patient minimally verbal Objective General: Awakens on stimuli, cannot assess orientation, does not speak, follows simple commands Heart: Irregular, Mildly tachycardic Lungs: CTAB, no wheezing, rales or ronchi Abd" Soft, non tender, non distended, BS+'ve Neuro: PERRLA, Cannot assess EOM, Predominant left sided gaze, mild left sided facial droop, Cannot assess CN (though he cannot stick his tongue out, he can shrug his shoulders, difficulty with Smile), Left hand senior qa tester strength about 4/5, Can hold up left arm without help and against resistance, Left leg 3/5 in strength, ROM is decreased. Right arm senior qa tester is 0/5, almost no range of motion, Right leg 1/5, no ROM. Reflexes 2/4. 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 S /p tPA > 24 hrs There is no evidence of midline shift but some vasogenic edema. Question embolic vs. thrombosis with history of AFib Anticoagulation contraindicated for now in the presence of hemorrhage but will need to be started on something given AFib and Clot seen in IVC- which has the potential to propagate Has right sided hemiparesis and expressive aphasia. Option of Embolectomy was discussed with the family (would need to be transferred to [place]) but they have decided on conservative measures for now- he will remain DNR/DNI with no further surgical interventions. Speech/PT/OT Repeat CT and ECHo today h/o of Parkinson's disease/ Dementia Can potentially make his recovery more difficult, ronald. with respect to speech and swallowing. 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 AFib: IV Metoprolol, Anticoagulation contraindicated at the moment. CAD- continue Statin. Reviewed ECHO- shows thrombus in the IVC- concern for potential to propagate. New vs. old? HTN: managed Venous doppler without evidence of LE DVT Renal: CKD stage III - stable creatine. Gentle hydration GI: Protonix for GI proph. : H/O of Urethral stricture with intermittent self catheterization UTI here- continue Rocephin Continue Finasteride Endo: Insulin dependent type II DM- NPO presently, continue short acting insulin, hold any long acting for now accuchecks Dispo: Patient's family has somewhat decided on conservative measures. Time was spent discussion options and prognosis. They have decided against going to [place]. Will continue Care in the ICU. attending addendum, the pt was seen , examined, chart reviewed and the case discussed in details with the staff on rounds, agree with the above treatment. this is a terribly unfortunate gentleman who had a CVA with conversion to hemorrhagic CVA from embolic CVA, the pt is currently off aspirin, and post CVA day 1 did not receive heparin sc either, developed significant aphasia and follows commands only by hand senior qa tester and movement. non verbal. the pt with IVC thrombus measuring 0.5 cm but the pt is not a candidate for anticoagulation. the family offered a transfer to [facility] for embolectomy eval but they did not want him to transfer to another facility, in fact, they changed his code status based on wishes to DNR and DNI, the pt continued with NGT and having somewhat hard time clearing his secretions. will continue pulmonary toilette and will add TF in am if tolerable. no anticoagulation, the family met with me and I went over the imaging with them as well, including the , the daughter and the son. case discussed in details with the staff on rounds. CCT 45 min. Data Medications: Current Inpatient Medications Medications (Trade) Dose Ordered Sig/Eddie Route Start Time Stop Time Status Last Admin Dose Admin Atorvastatin Calcium (Lipitor Tab) 80 mg DAILY PO 05/11/16 09:00 06/10/16 08:59 05/12/16 11:12 80 MG Carbidopa/Levodopa (Sinemet 25/ 100MG Tab) 2 tab QID PO 05/11/16 09:00 06/10/16 08:59 05/12/16 11:12 2 TAB Digoxin (Lanoxin Tab) 0.125 mg DAILY@1600 PO 05/11/16 16:00 06/10/16 15:59 Finasteride (Proscar Tab) 5 mg HS PO 05/11/16 21:00 06/10/16 20:59 Insulin Aspart (novoLOG ASPART) 15 units QPM SQ 05/11/16 21:00 06/10/16 20:59 Losartan Potassium (coZAAR TAB) 12.5 mg DAILY PO 05/11/16 09:00 06/10/16 08:59 Future Hold Methenamine Hippurate (Urex Tab) 1 gm BID PO 05/11/16 09:00 05/21/16 08:59 05/12/16 11:11 1 GM Multivitamins/ Minerals (Multivitamin W/ Minerals Tab) 1 tab DAILY PO 05/11/16 09:00 06/10/16 08:59 05/12/16 11:11 1 TAB Potassium Chloride (Klor-Con Tab) 20 meq QID PO 05/11/16 09:00 06/10/16 08:59 05/12/16 11:13 20 MEQ Pramipexole Dihydrochloride (miraPEX TAB) 0.25 mg TID PO 05/11/16 09:00 06/10/16 08:59 05/12/16 11:13 0.25 MG Selegiline HCl (Eldepryl Cap) 5 mg DAILY PO 05/11/16 09:00 06/10/16 08:59 05/12/16 11:11 5 MG Senna/Docusate Sodium (Senokot S Tab) 2 tab DAILY PRN PO 05/10/16 22:15 06/09/16 22:14 Mirtazapine (Remeron Solutab) 30 mg HS PO 05/11/16 21:00 06/10/16 20:59 Acetaminophen 650 mg 650 mg Q4H PRN PO 05/10/16 22:15 06/09/16 22:14 Pantoprazole Sodium/Syringe (Protonix Inj/ Syringe) 10 ml @ 5 mls/min DAILY@1100 IV 05/11/16 11:00 06/10/16 10:59 05/12/16 11:10 5 MLS/MIN Morphine Sulfate (MoRPHine SULFATE INJ) 2 mg Q2H PRN IV 05/10/16 22:15 05/24/16 22:14 Miscellaneous Information (Pharmacist Discharge Med Rec Consult) 1 ea UD PRN N/A 05/10/16 22:15 06/09/16 22:14 Insulin Aspart SLIDING SCALE G... ACHS SC 05/11/16 06:45 06/10/16 06:59 05/12/16 11:15 3 UNITS Sodium Chloride 1,000 ml @ 75 mls/hr [id number] IV 05/11/16 12:00 06/10/16 11:59 05/12/16 01:03 75 MLS/HR Ceftriaxone Sodium 1 gm/ Dextrose 50 ml @ 100 mls/hr Q24H IV 05/11/16 13:00 05/21/16 12:59 05/11/16 13:23 100 MLS/HR Acetaminophen/ Empty Bag (Ofirmev IV/ Empty Iv Bag 100ml) 65 ml @ 260 mls/hr Q6H PRN IV 05/11/16 12:45 06/10/16 12:44 Enteral Nutritional Formula 1000 ml 1,000 ml UD PO 05/12/16 09:00 06/11/16 08:59 Nicardipine HCl/ Sodium Chloride (Cardene Iv/Nss 250ml) 250 ml @ 0 mls/hr Q0M PRN IV 05/11/16 22:29 06/10/16 22:28 Metoprolol Tartrate 5 mg 5 mg Q6H IV. 05/12/16 16:00 06/11/16 15:59 Bumetanide/Syringe (Bumex IV/ Syringe) 2 ml @ 2 mls/hr DAILY IV 05/13/16 09:00 06/12/16 08:59 I & O: 24-Hour Column 05/12/16 07:59 Intake Total 1505 ml Output Total 1675 ml Balance -170 ml Vital Signs: Date Time Temp Pulse Resp B/P Pulse Ox O2 Delivery O2 Flow Rate FiO2 05/12/16 11:09 113 124/78 05/12/16 08:00 Nasal Cannula 05/12/16 05:58 100 26 110/75 93 Nasal Cannula 2.0 05/12/16 05:28 103 29 117/75 96 05/12/16 04:58 109 24 115/75 95 Nasal Cannula 2.0 05/12/16 04:00 Nasal Cannula 2.0 05/12/16 03:58 37.1 106 22 125/77 96 Nasal Cannula 2.0 05/12/16 03:28 105 23 125/74 95 Nasal Cannula 2.0 05/12/16 02:58 102 14 128/74 95 Nasal Cannula 2.0 05/12/16 02:28 104 19 117/71 96 Nasal Cannula 2.0 05/12/16 01:58 104 28 114/65 95 Nasal Cannula 2.0 05/12/16 01:29 99 14 115/68 95 Nasal Cannula 2.0 05/12/16 01:04 101 112/82 05/12/16 00:58 111 17 112/82 96 Nasal Cannula 2.0 05/12/16 00:28 107 14 127/79 94 Nasal Cannula 2.0 05/12/16 00:00 Nasal Cannula 2.0 05/11/16 23:58 37.7 106 22 136/80 95 Nasal Cannula 2.0 05/11/16 23:28 107 18 127/74 95 Nasal Cannula 2.0 05/11/16 22:58 99 25 113/74 94 Nasal Cannula 2.0 05/11/16 22:28 95 25 109/65 91 Nasal Cannula 2.0 05/11/16 21:15 94 16 110/64 95 Nasal Cannula 2.0 05/11/16 20:15 106 27 118/79 94 Nasal Cannula 2.0 05/11/16 20:09 101 118/79 05/11/16 20:00 Nasal Cannula 2.0 05/11/16 19:15 36.7 104 16 106/68 94 Nasal Cannula 2.0 05/11/16 18:15 96 26 106/67 92 Nasal Cannula 2.0 05/11/16 17:15 92 12 110/77 95 Nasal Cannula 2.0 05/11/16 16:15 37.3 104 28 120/74 94 Nasal Cannula 2.0 05/11/16 16:00 Nasal Cannula 2.0 05/11/16 15:15 101 22 114/75 94 Nasal Cannula 2.0 05/11/16 14:15 96 25 119/74 95 Nasal Cannula 2.0 Laboratory Results: Last 24 Hours Test 05/11/16 17:01 05/11/16 21:21 05/12/16 05:30 05/12/16 06:16 Bedside Glucose 173 mg/dl 173 mg/dl 219 mg/dl White Blood Count 11.36 K/uL Red Blood Count 5.25 M/uL Hemoglobin 15.8 g/dL Hematocrit 47.5 % Mean Corpuscular Volume 90.5 fL Mean Corpuscular Hemoglobin 30.1 pg Mean Corpuscular Hemoglobin Concent 33.3 g/dl Platelet Count 131 K/uL Mean Platelet Volume 10.9 fL Neutrophils (%) (Auto) 79.5 % Lymphocytes (%) (Auto) 11.4 % Monocytes (%) (Auto) 8.5 % Eosinophils (%) (Auto) 0.1 % Basophils (%) (Auto) 0.2 % Neutrophils # (Auto) 9.05 K/uL Lymphocytes # (Auto) 1.29 K/uL Monocytes # (Auto) 0.96 K/uL Eosinophils # (Auto) 0.01 K/uL Basophils # (Auto) 0.02 K/uL RDW Standard Deviation 48.2 fL RDW Coefficient of Variation 14.7 % Immature Granulocyte % (Auto) 0.3 % Immature Granulocyte # (Auto) 0.03 K/uL Sodium Level 144 mmol/L Potassium Level 4.7 mmol/L Chloride Level 107 mmol/L Carbon Dioxide Level 20 mmol/L Anion Gap 17.0 mmol/L Blood Urea Nitrogen 25 mg/dl Creatinine 1.60 mg/dl Est Creatinine Clear Calc Drug Dose 44.4 ml/min Estimated GFR () 49.2 Estimated GFR (Non- 42.4 BUN/Creatinine Ratio 15.6 Random Glucose 241 mg/dl Calcium Level 9.2 mg/dl Magnesium Level 2.1 mg/dl Test 05/12/16 10:57 Bedside Glucose 266 mg/dl
[2016-05-12] MEDS: CEFTRIAXONE SOD INJ 1 GM in DEXTROSE 5% ADD-VANTAGE 50ML 50 ML IV SCH (14:00)
--- NOTE | 2016-05-12 14:39 | DIAGNOSTIC IMAGING REPORT ---
CT HEAD WITHOUT CONTRAST (CT) CLINICAL HISTORY: Hemorrhagic stroke with tearing mental status. Patient currently obtunded. COMPARISON STUDY: 05/11/2016 TECHNIQUE: Axial CT of the brain is performed from the vertex to the skull base. IV contrast was not administered for this examination. CT DOSE: 638.56 mGycm FINDINGS: There is an old right occipital lobe infarct. There is continued evidence for a hemorrhagic infarct involving the left frontal lobe. There is a small amount of subarachnoid hemorrhage within the left frontal and parietal lobes. There is mild left hemispheric edema with sulcal effacement. The findings remain similar to the preceding study. No intraventricular hemorrhage is visualized. There are patchy white matter hypodensities likely on a small vessel basis. There is no evidence of pathologic ventricular dilatation. There is partial opacification of the right maxillary sinus. IMPRESSION: No significant change in the appearance of a hemorrhagic left frontal infarct. Left frontal and parietal subarachnoid hemorrhage is again visualized and appear similar. There is mild edema with left hemispheric cortical effacement. Electronically signed by: Nato Echeverria M.D. 05/12/2016 2:37 PM Dictated Date/Time: 05/12/2016 2:34 PM
[2016-05-12] MEDS: DIGOXIN 0.125 MG TAB PO SCH (18:08)
[2016-05-12] MEDS ORDERED: NURSING VERBAL MED ORDER ONE (19:30)
[2016-05-12] MEDS ORDERED: ACETAMINOPHEN SOLN 650MG/20.3 ML UDC PEG PRN (20:15)
[2016-05-12] MEDS ORDERED: DOCUSATE SODIUM 100 MG/10 ML UDC PEG PRN (20:15)
[2016-05-12] MEDS ORDERED: SENNA 17.6 MG/10 ML UDP PO PRN (20:15)
[2016-05-12] MEDS ORDERED: SENNA 17.6 MG/10 ML UDP PEG PRN (20:15)
[2016-05-12] MEDS ORDERED: FINASTERIDE 5 MG TAB PEG SCH (21:00)
[2016-05-12] MEDS ORDERED: POTASSIUM CHLORIDE 20 MEQ/15 ML UDC PO SCH (21:00)
[2016-05-12] MEDS: POTASSIUM CHLORIDE 20 MEQ/15 ML UDC PEG SCH (21:32)
[2016-05-12] MEDS: CARBIDOPA/LEVODOPA 25/100MG TAB PEG SCH (21:32)
[2016-05-12] MEDS: MIRTAZAPINE SOLTAB 15 MG PO SCH (21:33)
--- NOTE | 2016-05-12 23:38 | Family Medicine Progress Note ---
Progress Note Date of Service May 12, 2016. Subjective Pt evaluation today including: conversation w/ patient, conversation w/ family , physical exam, chart review, lab review Voiding: powell catheter in place Patient lying in bed, not responsive. and son in room, saying that he was previously responding via thumbs up and nodding. No history or ROS attained from patient in view of expressive aphasia, combined with altered mental status Medications Medications Administered Medications (Trade) Dose Ordered Sig/Eddie Route Start Time Stop Time Status Last Admin Dose Admin Alteplase, Recombinant 78 mg/ Empty Bag 78 ml @ 78 mls/hr TODAY@2133 ONCE IV 05/10/16 21:33 05/10/16 22:32 DC 05/10/16 21:46 78 MLS/HR Alteplase, Recombinant/ Syringe (Activase Inj/ Syringe) 7.8 ml @ 7.8 mls/min TODAY@2133 ONCE IV 05/10/16 21:33 05/10/16 21:34 DC 05/10/16 21:42 7.8 MLS/MIN Atorvastatin Calcium (Lipitor Tab) 80 mg DAILY PO 05/11/16 09:00 05/12/16 20:08 DC 05/12/16 11:12 80 MG Carbidopa/Levodopa (Sinemet 25/ 100MG Tab) 2 tab QID PO 05/11/16 09:00 05/12/16 20:08 DC 05/12/16 18:08 2 TAB Digoxin (Lanoxin Tab) 0.125 mg DAILY@1600 PO 05/11/16 16:00 05/12/16 20:09 DC 05/12/16 18:08 0.125 MG Methenamine Hippurate (Urex Tab) 1 gm BID PO 05/11/16 09:00 05/21/16 08:59 05/12/16 21:33 1 GM Multivitamins/ Minerals (Multivitamin W/ Minerals Tab) 1 tab DAILY PO 05/11/16 09:00 05/12/16 20:17 DC 05/12/16 11:11 1 TAB Potassium Chloride (Klor-Con Tab) 20 meq QID PO 05/11/16 09:00 05/12/16 17:08 DC 05/12/16 13:00 20 MEQ Pramipexole Dihydrochloride (miraPEX TAB) 0.25 mg TID PO 05/11/16 09:00 06/10/16 08:59 05/12/16 21:33 0.25 MG Selegiline HCl (Eldepryl Cap) 5 mg DAILY PO 05/11/16 09:00 06/10/16 08:59 05/12/16 11:11 5 MG Mirtazapine 30 mg 30 mg HS PO 05/11/16 21:00 06/10/16 20:59 05/12/16 21:33 30 MG Pantoprazole Sodium/Syringe (Protonix Inj/ Syringe) 10 ml @ 5 mls/min DAILY@1100 IV 05/11/16 11:00 06/10/16 10:59 05/12/16 11:10 5 MLS/MIN Insulin Aspart SLIDING SCALE G... ACHS SC 05/11/16 06:45 06/10/16 06:59 05/12/16 21:35 3 UNITS Sodium Chloride 1,000 ml @ 75 mls/hr [id number] IV 05/11/16 12:00 06/10/16 11:59 05/12/16 14:40 75 MLS/HR Ceftriaxone Sodium/Dextrose (Rocephin Inj/ Dextrose Add-[place] 50ML) 50 ml @ 100 mls/hr Q24H IV 05/11/16 13:00 05/21/16 12:59 05/12/16 14:00 100 MLS/HR Metoprolol Tartrate (Lopressor Iv) 2.5 mg Q6H IV. 05/11/16 13:00 05/12/16 09:40 DC 05/12/16 01:04 2.5 MG Perflutren Lipid Microsphere (Definity) 2 ml ONE ONCE IV 05/11/16 13:22 05/11/16 13:23 DC 05/11/16 13:22 2 ML Metoprolol Tartrate (Lopressor Iv) 5 mg Q6H IV. 05/12/16 16:00 06/11/16 15:59 05/12/16 21:36 5 MG Metoprolol Tartrate (Lopressor Iv) 5 mg TODAY@1030 ONCE IV 05/12/16 10:30 05/12/16 10:31 DC 05/12/16 11:09 5 MG Carbidopa/Levodopa (Sinemet 25/ 100MG Tab) 2 tab QID PEG 05/12/16 21:00 06/11/16 20:59 05/12/16 21:32 2 TAB Potassium Chloride (Zaynab Ciel Elix) 20 meq QID PEG 05/12/16 21:00 06/11/16 20:59 05/12/16 21:32 20 MEQ Objective Vital Signs Date Time Temp Pulse Resp B/P Pulse Ox O2 Delivery O2 Flow Rate FiO2 05/12/16 22:00 92 12 132/80 94 Nasal Cannula 3.0 05/12/16 21:36 90 113/59 05/12/16 20:00 90 Nasal Cannula 3.0 05/12/16 20:00 36.4 91 25 111/68 90 Nasal Cannula 3.0 05/12/16 18:08 106 05/12/16 18:07 106 122/79 05/12/16 18:00 98 30 126/81 93 Nasal Cannula 2.0 05/12/16 16:00 37.3 108 28 122/71 94 Nasal Cannula 2.0 05/12/16 16:00 94 Nasal Cannula 2.0 05/12/16 14:00 98 26 114/70 94 Nasal Cannula 2.0 05/12/16 12:00 96 Nasal Cannula 2.0 05/12/16 12:00 37.1 101 28 127/86 92 Nasal Cannula 2.0 05/12/16 11:09 113 124/78 05/12/16 10:00 116 30 134/84 95 Nasal Cannula 2.0 05/12/16 08:00 37.3 110 26 110/70 95 Nasal Cannula 2.0 05/12/16 08:00 95 Nasal Cannula 2.0 05/12/16 08:00 Nasal Cannula 05/12/16 05:58 100 26 110/75 93 Nasal Cannula 2.0 05/12/16 05:28 103 29 117/75 96 05/12/16 04:58 109 24 115/75 95 Nasal Cannula 2.0 05/12/16 04:00 Nasal Cannula 2.0 05/12/16 03:58 37.1 106 22 125/77 96 Nasal Cannula 2.0 05/12/16 03:28 105 23 125/74 95 Nasal Cannula 2.0 05/12/16 02:58 102 14 128/74 95 Nasal Cannula 2.0 05/12/16 02:28 104 19 117/71 96 Nasal Cannula 2.0 05/12/16 01:58 104 28 114/65 95 Nasal Cannula 2.0 05/12/16 01:29 99 14 115/68 95 Nasal Cannula 2.0 05/12/16 01:04 101 112/82 05/12/16 00:58 111 17 112/82 96 Nasal Cannula 2.0 05/12/16 00:28 107 14 127/79 94 Nasal Cannula 2.0 Physical Exam General Appearance: WD/WN, no apparent distress ENT: + pertinent finding (NG tube in situ) Neck: supple Respiratory/Chest: lungs clear, normal breath sounds, no respiratory distress, + pertinent finding (on oxygen via nasal cannula) Cardiovascular: regular rate, rhythm, no JVD, no murmur Abdomen: normal bowel sounds, soft, no organomegaly Extremities: no pedal edema Neurologic/Psychiatric: + aphasia, + facial droop, + motor weakness Skin: normal color, warm/dry, no rash Laboratory Results Results Past 24 Hours Test 05/12/16 05:30 05/12/16 06:16 05/12/16 10:57 05/12/16 16:14 Range/Units White Blood Count 11.36 4.8-10.8 K/uL Red Blood Count 5.25 4.7-6.1 M/uL Hemoglobin 15.8 14.0-18.0 g/dL Hematocrit 47.5 42-52 % Mean Corpuscular Volume 90.5 80-100 fL Mean Corpuscular Hemoglobin 30.1 25-34 pg Mean Corpuscular Hemoglobin Concent 33.3 32-36 g/dl Platelet Count 131 130-400 K/uL Mean Platelet Volume 10.9 7.4-10.4 fL Neutrophils (%) (Auto) 79.5 % Lymphocytes (%) (Auto) 11.4 % Monocytes (%) (Auto) 8.5 % Eosinophils (%) (Auto) 0.1 % Basophils (%) (Auto) 0.2 % Neutrophils # (Auto) 9.05 1.4-6.5 K/uL Lymphocytes # (Auto) 1.29 1.2-3.4 K/uL Monocytes # (Auto) 0.96 0.11-0.59 K/uL Eosinophils # (Auto) 0.01 0-0.5 K/uL Basophils # (Auto) 0.02 0-0.2 K/uL RDW Standard Deviation 48.2 36.4-46.3 fL RDW Coefficient of Variation 14.7 11.5-14.5 % Immature Granulocyte % (Auto) 0.3 % Immature Granulocyte # (Auto) 0.03 0.00-0.02 K/uL Sodium Level 144 136-145 mmol/L Potassium Level 4.7 3.5-5.1 mmol/L Chloride Level 107 98-107 mmol/L Carbon Dioxide Level 20 21-32 mmol/L Anion Gap 17.0 3-11 mmol/L Blood Urea Nitrogen 25 7-18 mg/dl Creatinine 1.60 0.60-1.40 mg/dl Est Creatinine Clear Calc Drug Dose 44.4 ml/min Estimated GFR () 49.2 Estimated GFR (Non- 42.4 BUN/Creatinine Ratio 15.6 10-20 Random Glucose 241 70-99 mg/dl Calcium Level 9.2 8.5-10.1 mg/dl Magnesium Level 2.1 1.8-2.4 mg/dl Bedside Glucose 219 266 285 70-99 mg/dl Test 05/12/16 20:37 Range/Units Bedside Glucose 245 70-99 mg/dl Assessment and Plan This is a 70 year old male with history of low output CHF (EF <15%), pacemaker/ AICD, DM on insulin with CKD stage III, atrial fibrillation (not on AC presumably due to Parkinson's/risk of fall), HTN, HLD, chronic urethral stricture requiring self-cath TID at homeand Parkinson's presented to the ED with R sided weakness and L facial droop for [address] head showed acute left insular CVA and evaluated promptly by the telestroke service. TPA was administered. Acute Left frontal lobe stroke with expressive aphasia - Repeated CT showed: 1. Large acute left frontal lobe infarct. 2. No evidence of acute hemorrhage 3. Old right occipital lobe infarct - Right sided weakness slightly improved, expressive aphasia ongoing - Continue Lipitor 80 - All the hypertensive medications are on hold - Can't have MRI due to pacer-defib - Neuro check per stroke protocol - Patient is NPO - Carotid US showed no carotid stenosis. - Venous Doppler b/l LE reported no DVT within the right or left lower extremity. - Echo showed: 0.5cm, mobile, echogenic mass in IVC, most consistent with thrombus. - Neurology was consulted and will appreciate their recommendations. - CT was repeated to assess brain edema and for hemorrhage on 05/11 and showed: Since the prior study, the patient has developed hemorrhage into the area of left frontal infarction. Addition there are areas of subarachnoid hemorrhage within the left frontal and parietal lobes. - Currently NPO and will place feeding tube after 24 hr jesus of TPA administration - Patient's family offered transfer to [facility] for embolectomy, but they declined. - Will continue monitoring patients clinical picture Severe chronic systolic congested heart failure - EF is <15% - Holding losartan and spironolactone for now. - Cardio suggests start low dose IV lopressor for tachycardia for now, holding other cardiac meds. Hold ASA for TPA Hold digoxin until Dobbhoff placed. Not on diuretics at this time. Restart Toprol XL 75 once daily when able to - Blood pressure low for perfusion, thus started Lopressor 2.5mg IV q6h - Echo performed showed: Moderately dilated LV. Normal LV wall thickness. Global severe LV dysfunction. LVEF <15%. Grade III diastolic dysfunction. Normal RV size and function. No significant valvular pathology. Normal estimated RA pressure. 0.5cm, mobile, echogenic mass in IVC, most consistent with thrombus. A. fib - ASA on hold - No anticoagulant at this time in view of recently administered TPA - Continue Digoxin 0.125mg - Start heparin BID tomorrow am after repeat CT - Echo is ordered and showed IVC thrombus, which is a complicating factor, but no LV thrombus seen. IVC clot likely to be old given it did not dissipate with TPA - Cardio recommends consider anticoagulant for A.fib when safe to do so DM - on sliding scale and novolog 15unit qam - A1c is pending CKD stage 3 - Stable, baseline creatinine is 1.40-1.60 Complicated UTI - Patient has urethral stricture and self cath at home - UA done and urine culture grew gram positive cocci - Of note, patient had head cold for 2-3 days prior to CVA, and CT shows right max sinusitis - Patient has low grade fever - Patient started on Rocephin 1g IV Parkinson's disease - Carbidopa/Levodopa on hold. - Selegiline on hold - Restart meds when able to with feeding tube Restless leg syndrome - Pramipexole on hold DVT prophylaxis - contraindication after tPA for 24hrs - were cnosidering to start heparin, but not an option given hemorrhagic conversion of CVA - SCDs recommended Dispo -PT/OT evaluations when stable - Code status: DNR/DNI Resident Physician Supervision Note: I interviewed and examined the patient. Discussed with Dr. Maciel and agree with findings and plan as documented in the note. Any exceptions or clarifications are listed here: None Documented By: Armani mera as well. extensive discussion w family. no hpi or ros obtainable from pt, but able to give "thumbs up" family notes that while he would not want long-term feeding tube "if a permanent one can be removed, that's still short term" family understanding grave prognosis but not ready to change to comfort measures only; but also did not want to put him through further invasive treatment/stress/etc associated with transfer to tertiary care - aware that IVC thrombus can't be effectively treated here and that not treating it does convey its own severe risks. answered all questions to the best of my ability and to their satisfaction vitals noted, resting comfortably, can move L arm weakly to give thumbs up, ongoing R sided weakness, breathing unlabored no accessory muscles, no pallor, exam otherwise as above -large ischemic CVA s/p tPA w hemorrhagic conversion - ongoing supportive care; can't use asa/anticoagulation due to hemorrhagic conversion. poor prognosis but family wishes to pursue (limited) aggressive care ongoing -dysphagia - d/w family as days progress will need to address enteral nutrition. right now they'd be leaning towards PEG for trial -IVC thrombus - can't anticoagulate due to intracranial bleed, family does not want invasive procedures done at this time, were considering transfer to tertiary but changed their minds -DVT proph - contraindicated due to intracranial bleeding otherwise as above Continued [facility] stay due to: inadequate po fluid intake, multiple IV medications needed, home environment unsafe for pt
[2016-05-13] VITALS (10 sets, daily range): BP systolic 115–136; BP diastolic 73–91; PULSE 93–105; TEMP 37.3–37.7; O2SAT 91–94
[2016-05-13] MEDS: SODIUM CHLORIDE 0.9% 1000ML 1,000 ML IV SCH (04:04)
[2016-05-13] MEDS: METOPROLOL TARTRATE 1 MG/ML VIAL IV. SCH ×2 (04:05→09:21)
[2016-05-13] MEDS: INSULIN ASPART 100 UNITS/ML 3 ML PEN SC SCH (05:47)
[2016-05-13 05:53] LABS: BASO % 0.2 %; BASO ABS # 0.03 K/uL (0-0.2); COMPLETE YES; EOS % 0.1 %; HEMATOCRIT 48.8 % (42-52); IG% 0.3 %; LYMPH ABS # 1.09 K/uL (1.2-3.4); MEAN CELL VOLUME 92.2 fL (80-100); MEAN CORPUSCULAR HGB CONC 33.6 g/dl (32-36); MEAN PLATELET VOLUME 11.1 fL (7.4-10.4); MONO % 10.5 %; NEUT % 81.9 %; PLATELET COUNT 128 K/uL (130-400); RED BLOOD COUNT 5.29 M/uL (4.7-6.1); WHITE BLOOD COUNT 15.67 K/uL (4.8-10.8)
[2016-05-13 06:21] LABS: CALCIUM 9.2 mg/dl (8.5-10.1); CREATININE 1.6 mg/dl (0.60-1.40); MAGNESIUM 2.3 mg/dl (1.8-2.4); POTASSIUM 4.8 mmol/L (3.5-5.1)
[2016-05-13 06:31] LABS: BETA-HYDROXYBUTYRATE 37.15 mg/dL (0.2-2.81)
[2016-05-13] MEDS ORDERED: ATORVASTATIN 40 MG TAB PEG SCH (09:00)
[2016-05-13] MEDS ORDERED: MULTIVITAMINS W/MINERALS 15ML UDP PEG SCH (09:00)
[2016-05-13] MEDS ORDERED: BUMETANIDE IV 0.5 MG in SYRINGE 0 ML IV SCH (09:00)
--- NOTE | 2016-05-13 09:06 | Neurology Progress Notes ---
Neurology Progress Note Date of Service May 13, 2016. Subjective CT of the head yesterday afternoon showed no change compared to previous CT scan. There was still some edema within the large left MCA distribution stroke and there was hemorrhage within the stroke as well. Nursing reports no change clinically. He has had no seizures or new events. He has fluctuating levels of responsiveness. Patient's declined to send him to [facility] for more aggressive treatment approach. He is now basically a DO NOT RESUSCITATE with comfort measures. Objective Date Time Temp Pulse Resp B/P Pulse Ox O2 Delivery O2 Flow Rate FiO2 05/13/16 06:00 37.5 99 24 116/75 94 Nasal Cannula 4.0 05/13/16 04:05 104 132/81 05/13/16 04:00 93 Nasal Cannula 4.0 05/13/16 04:00 37.4 105 32 132/81 93 Nasal Cannula 4.0 05/13/16 02:00 101 14 123/82 91 Nasal Cannula 4.0 05/13/16 00:00 92 Nasal Cannula 4.0 05/13/16 00:00 37.5 93 14 115/73 93 Nasal Cannula 4.0 05/12/16 22:00 92 12 132/80 94 Nasal Cannula 3.0 05/12/16 21:36 90 113/59 05/12/16 20:00 90 Nasal Cannula 3.0 05/12/16 20:00 36.4 91 25 111/68 90 Nasal Cannula 3.0 05/12/16 18:08 106 05/12/16 18:07 106 122/79 05/12/16 18:00 98 30 126/81 93 Nasal Cannula 2.0 05/12/16 16:00 37.3 108 28 122/71 94 Nasal Cannula 2.0 05/12/16 16:00 94 Nasal Cannula 2.0 05/12/16 14:00 98 26 114/70 94 Nasal Cannula 2.0 05/12/16 12:00 96 Nasal Cannula 2.0 05/12/16 12:00 37.1 101 28 127/86 92 Nasal Cannula 2.0 05/12/16 11:09 113 124/78 05/12/16 10:00 116 30 134/84 95 Nasal Cannula 2.0 Last 24 Hours Test 05/12/16 10:57 05/12/16 16:14 05/12/16 20:37 05/13/16 05:43 Bedside Glucose 266 mg/dl 285 mg/dl 245 mg/dl 280 mg/dl White Blood Count 15.67 K/uL Red Blood Count 5.29 M/uL Hemoglobin 16.4 g/dL Hematocrit 48.8 % Mean Corpuscular Volume 92.2 fL Mean Corpuscular Hemoglobin 31.0 pg Mean Corpuscular Hemoglobin Concent 33.6 g/dl Platelet Count 128 K/uL Mean Platelet Volume 11.1 fL Neutrophils (%) (Auto) 81.9 % Lymphocytes (%) (Auto) 7.0 % Monocytes (%) (Auto) 10.5 % Eosinophils (%) (Auto) 0.1 % Basophils (%) (Auto) 0.2 % Neutrophils # (Auto) 12.86 K/uL Lymphocytes # (Auto) 1.09 K/uL Monocytes # (Auto) 1.64 K/uL Eosinophils # (Auto) 0.01 K/uL Basophils # (Auto) 0.03 K/uL RDW Standard Deviation 50.2 fL RDW Coefficient of Variation 14.9 % Immature Granulocyte % (Auto) 0.3 % Immature Granulocyte # (Auto) 0.04 K/uL Sodium Level 147 mmol/L Potassium Level 4.8 mmol/L Chloride Level 113 mmol/L Carbon Dioxide Level 21 mmol/L Anion Gap 13.0 mmol/L Blood Urea Nitrogen 27 mg/dl Creatinine 1.60 mg/dl Est Creatinine Clear Calc Drug Dose 44.4 ml/min Estimated GFR () 49.2 Estimated GFR (Non- 42.4 BUN/Creatinine Ratio 17.0 Random Glucose 303 mg/dl Calcium Level 9.2 mg/dl Magnesium Level 2.3 mg/dl Beta-Hydroxybutyric Acid 37.15 mg/dL Exam: Patient has no speech. He will open his eyes and fix it his gaze on me briefly to the left one eye give him gentle shake and voice. He will follow some one- step commands with wiggling his fingers and toes on the left, but he won't protrude his tongue on command. He prefers left gaze and I can get his gaze past midline to the right. He has no nystagmus. There is no facial droop. There is some tone on the right side but is clearly weaker than on the left. Toes are upgoing to plantar stimulation on the right and downgoing on the left. Current Inpatient Medications Medications (Trade) Dose Ordered Sig/Eddie Route Start Time Stop Time Status Last Admin Dose Admin Losartan Potassium (coZAAR TAB) 12.5 mg DAILY PO 05/11/16 09:00 06/10/16 08:59 Future Hold Methenamine Hippurate (Urex Tab) 1 gm BID PO 05/11/16 09:00 05/21/16 08:59 05/12/16 21:33 1 GM Pramipexole Dihydrochloride (miraPEX TAB) 0.25 mg TID PO 05/11/16 09:00 06/10/16 08:59 05/12/16 21:33 0.25 MG Selegiline HCl (Eldepryl Cap) 5 mg DAILY PO 05/11/16 09:00 06/10/16 08:59 05/12/16 11:11 5 MG Mirtazapine 30 mg 30 mg HS PO 05/11/16 21:00 06/10/16 20:59 05/12/16 21:33 30 MG Pantoprazole Sodium/Syringe (Protonix Inj/ Syringe) 10 ml @ 5 mls/min DAILY@1100 IV 05/11/16 11:00 06/10/16 10:59 05/12/16 11:10 5 MLS/MIN Morphine Sulfate (MoRPHine SULFATE INJ) 2 mg Q2H PRN IV 05/10/16 22:15 05/24/16 22:14 Miscellaneous Information (Pharmacist Discharge Med Rec Consult) 1 ea UD PRN N/A 05/10/16 22:15 06/09/16 22:14 Insulin Aspart SLIDING SCALE G... ACHS SC 05/11/16 06:45 06/10/16 06:59 05/13/16 05:47 3 UNITS Sodium Chloride 1,000 ml @ 75 mls/hr [id number] IV 05/11/16 12:00 06/10/16 11:59 05/13/16 04:04 75 MLS/HR Ceftriaxone Sodium 1 gm/ Dextrose 50 ml @ 100 mls/hr Q24H IV 05/11/16 13:00 05/21/16 12:59 05/12/16 14:00 100 MLS/HR Acetaminophen/ Empty Bag (Ofirmev IV/ Empty Iv Bag 100ml) 65 ml @ 260 mls/hr Q6H PRN IV 05/11/16 12:45 06/10/16 12:44 Enteral Nutritional Formula 1000 ml 1,000 ml UD PO 05/12/16 09:00 06/11/16 08:59 Nicardipine HCl/ Sodium Chloride (Cardene Iv/Nss 250ml) 250 ml @ 0 mls/hr Q0M PRN IV 05/11/16 22:29 06/10/16 22:28 Metoprolol Tartrate 5 mg 5 mg Q6H IV. 05/12/16 16:00 06/11/16 15:59 05/13/16 04:05 5 MG Bumetanide/Syringe (Bumex IV/ Syringe) 2 ml @ 2 mls/hr DAILY IV 05/13/16 09:00 06/12/16 08:59 Acetaminophen (Tylenol Soln) 650 mg Q4H PRN PEG 05/12/16 20:15 06/11/16 20:14 Atorvastatin Calcium (Lipitor Tab) 80 mg DAILY PEG 05/13/16 09:00 06/12/16 08:59 Carbidopa/Levodopa (Sinemet 25/ 100MG Tab) 2 tab QID PEG 05/12/16 21:00 06/11/16 20:59 05/12/16 21:32 2 TAB Digoxin (Lanoxin Tab) 0.125 mg DAILY@1600 PEG 05/13/16 16:00 06/12/16 15:59 Docusate Sodium (coLACE SYRUP) 100 mg DAILY PRN PEG 05/12/16 20:15 06/11/16 20:14 Senna (Senokot Syrup) 17.6 mg DAILY PRN PEG 05/12/16 20:15 06/11/16 20:14 Finasteride (Proscar Tab) 5 mg HS PEG 05/12/16 21:00 06/11/16 20:59 Multivitamins Therapeutic (Cerovite Liquid) 15 ml DAILY PEG 05/13/16 09:00 06/12/16 08:59 Potassium Chloride (Zaynab Ciel Elix) 20 meq QID PEG 05/12/16 21:00 06/11/16 20:59 05/12/16 21:32 20 MEQ Impression 1. Large (at least 6 cm), left middle cerebral artery distribution acute stroke with hemorrhagic transformation following tPA. There is some localized edema but no midline shift. It extends from frontal to parietal lobe. Etiology of the stroke is not apparent and could be embolic or thrombotic. The patient has a history of atrial fibrillation with pacemaker and was on aspirin prior to admission, as his only anticoagulant or antiplatelet medication He received TPA on admission at 2133 hrs. on May 10. Clinically, currently, he has right hemiparesis leg greater than arm and face ( he is in fact I really cannot ascertain that there is a facial droop on the right). He has a severe expressive aphasia but he can comprehend and follow some simple one-step commands NIH stroke scale is 10. 2. Parkinson's disease He is supposed to be on Sinemet 25/100, 2 tablets 4 times daily and selegiline 5 mg daily. He has not received these medications for 48 hours and he is likely more rigid than usual currently. He does not have any resting tremor. 3. Restless leg syndrome He is currently on pramipexole 0.25 mg 3 times a day. This will also help his parkinsonism. 4. Underlying mild dementia, chronic 5. Atrial fibrillation with pacemaker. History of congestive heart failure. 6. 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 7. Echocardiogram with 0.5 cm IVC clot probably mobile and possibly new Plan I have discussed this case with the patient's and with the actuarial manager. This is a complicated case and treatment is limited. On the one hand, he has hemorrhagic transformation to his rather large stroke which would preclude using anticoagulation or antiplatelet medication. On the other hand, he has a history of atrial fibrillation, but more importantly, a small but possibly new and mobile inferior vena cava clot. This clot could dislodge or become larger. He is on nothing to prevent this. Anticoagulation would likely make his hemorrhagic stroke a lot worse. Clot retrieval the embolectomy is a possibility although the procedure itself has risk for his stroke. The patient's family has decided not to transfer him for this possibility. Unfortunately, there is little we can do in this institution for this patient regarding this hemorrhage versus clot situation otherwise. 1. He is currently a DO NOT RESUSCITATE and we will keep him as comfortable as possible. 2. Keep carbidopa levodopa 25/100, 1 tablet 4 times a day via NG tube for now. This can be increased to his usual 2 tablets 4 times a day depending on his clinical course For now, continue hold on initiating selegiline and pramipexole 3. Range of motion exercises for his legs. 4. Speech therapy, possible 5. Follow with serial CT scans of the head regarding edema and hemorrhage.
[2016-05-13] MEDS: POTASSIUM CHLORIDE 20 MEQ/15 ML UDC PEG SCH ×2 (09:18→13:07)
[2016-05-13] MEDS: METHENAMINE HIPPURATE 1 GM TAB PO SCH (09:19)
[2016-05-13] MEDS: CARBIDOPA/LEVODOPA 25/100MG TAB PEG SCH ×2 (09:19→13:08)
[2016-05-13] MEDS: SELEGILINE HCL 5 MG CAP PO SCH (09:20)
[2016-05-13] MEDS: PRAMIPEXOLE DIHYDROCHLORIDE 0.25MG TAB PO SCH ×2 (09:21→14:00)
[2016-05-13] MEDS ORDERED: NURSING VERBAL MED ORDER ONE ×2 (09:30→15:15)
[2016-05-13] MEDS: GLYCOPYRROLATE 1 MG TAB PO SCH ×2 (09:36→14:00)
--- NOTE | 2016-05-13 10:05 | CARDIOLOGY PROGRESS NOTE ---
DATE: 05/13/2016 HISTORY OF PRESENT ILLNESS: Mr. Keith is a 70-year-old white male with a history of longstanding CAD, ischemic cardiomyopathy (LVEF less than 15%), status post AICD, hypertension, hypercholesterolemia, and insulin requiring type 2 diabetes mellitus, chronic systolic CHF, and a history of atrial flutter/atrial fibrillation, who presented with a large left middle cerebral artery stroke, which extended from the frontal lobe to the parietal lobe with hemorrhagic conversion. He was also noted to have a possible thrombus in the IVC. Anticoagulation is contraindicated due to his hemorrhagic conversion related to stroke. The patient remains in room 103, with variable levels of responsiveness. He does open his left eye when asked to, but neurologically has not improved otherwise. He remains tachycardic on telemetry monitoring, but offers no complaints. He remains an aphasic. PHYSICAL EXAMINATION: VITAL SIGNS: Temperature is 37.5 degrees axillary, heart rate is 105 and regular, respiratory rate is 22 and unlabored, blood pressure is 116/75 and SpO2 is 94% on 4 liters oxygen via nasal cannula. HEENT: Head is atraumatic and normocephalic. No obvious facial droop. No perioral cyanosis. Mucous membranes moist. NECK: Without thyromegaly or adenopathy. Jugular venous pressure is just above the clavicle, lying at a 45-degree angle. Body weight is up 1.1 kilograms from yesterday. CHEST AND LUNGS: With harsh breath sounds over the trachea and bronchi, but there are no rales or crackles peripherally. No obvious wheezes. CARDIOVASCULAR: S1 and S2 are regular, tachycardic without obvious murmur, gallop or rub. PMI is laterally displaced. No lifts, heaves, or thrills. ABDOMINAL EXAM: Bowel sounds present. EXTREMITIES: Without clubbing, cyanosis or edema. NEUROLOGIC: Unchanged from yesterday. Current telemetry monitoring reveals probable sinus tachycardia with electronic ventricular pacemaker. I cannot say for certainty that this is not atrial flutter. LABORATORY DATA: White blood cell count is 15.67, hemoglobin 16.4 g/dL, hematocrit 48.8% and platelet count 120,000. Sodium is 147 mmol/L, potassium 4.8 mmol/L, BUN is 27 mg/dL, creatinine 1.60 mg/dL, and random glucose 280 mg/dL. ASSESSMENT: 1. Acute left middle cerebral arterial stroke with hemorrhagic conversion with right-sided hemiparesis. 2. Chronic systolic congestive heart failure. 3. Ischemic Cardiomyopathy, LVEF less than 15%, status post AICD. 4. History of paroxysmal atrial flutter/atrial fibrillation. 5. Coronary artery disease. 6. Hypertension, controlled. 7. Dyslipidemia. 8. Insulin-requiring type 2 diabetes mellitus. 9. Chronic renal insufficiency. 10. 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 PLAN: 1. The patient now has a PEG tube in place. 2. Resume Lopressor 25 mg via PEG tube q. 8 hours. Change IV Lopressor to 5 mg every 4 to 6 hours, as needed, for HR > 105 bpm. 3. Continue Digoxin 0.125 mg daily. 4. Increase Bumetanide to 1 mg IV daily based on body weight and positive fluid balance. 5. Continue Lipitor 80 mg via PEG tube daily. 6. In coming days, would resume spironolactone via PEG tube as well as losartan. 7. Continue monitoring daily laboratories, closely monitor daily I&O's and body weights. 8. We will continue to follow along while hospitalized. ATTENDING ADDENDUM: PT seen and examined on 05/13/16. Pt is unresponsive and thus ROS are unobtainable. Exam notable for: Unresponsive to verbal stimuli Heart regular Lungs clear Agree with plan as above. MTDD
[2016-05-13] MEDS ORDERED: BUMETANIDE IV 0.5 MG in SYRINGE 0 ML IV ONE (10:15)
--- NOTE | 2016-05-13 10:33 | Critical Care Progress Note ---
Critical Care Progress Note Date of Service May 13, 2016. Attending Dr. Kam Subjective at bedside, emotional. Patient seems to be less responsive today that yesterday. Doesn't follow simple commands as well. Objective General: Awakens on stimuli, cannot assess orientation, does not speak, Does not follow simple commands as well as he did yesterday Heart: Irregular, Mildly tachycardic Lungs: Scattered ronchi Abd: Soft, non tender, non distended, BS+'ve Neuro: PERRLA, Cannot assess EOM, Predominant left sided gaze, Cannot assess CN , Left hand chef teacher strength about 3/5, Cannot hold up left arm at all today, Left leg 3/5 in strength, ROM is decreased. Right arm chef teacher is 0/5, almost no range of motion, Right leg 0/5, no ROM. Reflexes 1/4. 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 S /p tPA > 24 hrs Has right sided hemiparesis and expressive aphasia. - Todays exam, seems to be worse. He is less responsive and not following commands as much. He has less movement in his right extremities. Does not open his eyes as much. CT from yesterday: There is no evidence of midline shift but some vasogenic edema. However, given worsening mental status and even less movement today; question worsening of hemorrhagic conversion> lethargy Question embolic vs. thrombosis with history of AFib Anticoagulation contraindicated for now in the presence of hemorrhage but will need to be started on something given AFib and Clot seen in IVC- which has the potential to propagate- family understands this. Option of Embolectomy was discussed with the family (would need to be transferred to [place]) but they have decided on conservative measures for now- he will remain DNR/DNI with no further surgical interventions. Speech/PT/OT h/o of Parkinson's disease/ Dementia Can potentially make his recovery more difficult, ronald. with respect to speech and swallowing. 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 AFib: IV Metoprolol, Anticoagulation contraindicated at the moment. CAD- continue Statin. Reviewed ECHO- shows thrombus in the IVC- concern for potential to propagate. New vs. old? HTN: managed Venous doppler without evidence of LE DVT Renal: CKD stage III - stable creatine. Gentle hydration GI: Protonix for GI proph. discussed with about starting tube feeds. For now via NG tube. The patient may have expressed int he past that he did not want a G-tube. This is undecided but the is all for it. : H/O of Urethral stricture with intermittent self catheterization UTI here- continue Rocephin Urine culture with gram +'ve cocci. Continue Finasteride Endo: Insulin dependent type II DM- If tube feeds are started today; will start Lantus. Blood sugars elevated. Dispo: Patient's family has somewhat decided on conservative measures. Time was spent discussion options and prognosis. They have decided against going to [facility]. Will continue Care in the ICU. attending addendum, the pt with large MCA infarct with hemorrhagic conversion, now with poor neurologic outcome including semicoma and inability to verbalize, hand chef teacher noted on the left only , barely moving his feet. his wishes discussed with the , the daughter and the son at the bed side, they communicated with him via hand chef teacher according to the who stated that he is adamant he does not want a feeding tube , I have discussed with them also to start the feeding via the dobhoff and they dont want that either. the meds via the NGT discussed and they are likely not going to improve the outcome as they are all parkinsons and cardiac meds. the pt with poor quality of life outcome after his devastating CVA. the family and the pt reached the point where they do not want further medical treatment and they are seeking palliation. appreciate palliative care consult, will stop meds and TF and remove the NGT. will start the pt on prn meds for comfort such as MS and ativan, the pt will be transferred to a private room for comfort only. discussed with Dr. Morris and appreciate their acceptance of this case to the regular floor. discussed in details with the staff and with family at the bed side. CCT 45 min. Data Medications: Current Inpatient Medications Medications (Trade) Dose Ordered Sig/Eddie Route Start Time Stop Time Status Last Admin Dose Admin Losartan Potassium (coZAAR TAB) 12.5 mg DAILY PO 05/11/16 09:00 06/10/16 08:59 Future Hold Methenamine Hippurate (Urex Tab) 1 gm BID PO 05/11/16 09:00 05/21/16 08:59 05/13/16 09:19 1 GM Pramipexole Dihydrochloride (miraPEX TAB) 0.25 mg TID PO 05/11/16 09:00 06/10/16 08:59 05/13/16 09:21 0.25 MG Selegiline HCl (Eldepryl Cap) 5 mg DAILY PO 05/11/16 09:00 06/10/16 08:59 05/13/16 09:20 5 MG Mirtazapine 30 mg 30 mg HS PO 05/11/16 21:00 06/10/16 20:59 05/12/16 21:33 30 MG Pantoprazole Sodium/Syringe (Protonix Inj/ Syringe) 10 ml @ 5 mls/min DAILY@1100 IV 05/11/16 11:00 06/10/16 10:59 05/12/16 11:10 5 MLS/MIN Morphine Sulfate (MoRPHine SULFATE INJ) 2 mg Q2H PRN IV 05/10/16 22:15 05/24/16 22:14 Miscellaneous Information 1 ea 1 ea UD PRN N/A 05/10/16 22:15 06/09/16 22:14 Sodium Chloride 1,000 ml @ 75 mls/hr [id number] IV 05/11/16 12:00 06/10/16 11:59 05/13/16 04:04 75 MLS/HR Ceftriaxone Sodium 1 gm/ Dextrose 50 ml @ 100 mls/hr Q24H IV 05/11/16 13:00 05/21/16 12:59 05/12/16 14:00 100 MLS/HR Acetaminophen/ Empty Bag (Ofirmev IV/ Empty Iv Bag 100ml) 65 ml @ 260 mls/hr Q6H PRN IV 05/11/16 12:45 06/10/16 12:44 Enteral Nutritional Formula 1000 ml 1,000 ml UD PO 05/12/16 09:00 06/11/16 08:59 Nicardipine HCl/ Sodium Chloride (Cardene Iv/Nss 250ml) 250 ml @ 0 mls/hr Q0M PRN IV 05/11/16 22:29 06/10/16 22:28 Acetaminophen (Tylenol Soln) 650 mg Q4H PRN PEG 05/12/16 20:15 06/11/16 20:14 Atorvastatin Calcium (Lipitor Tab) 80 mg DAILY PEG 05/13/16 09:00 06/12/16 08:59 05/13/16 09:19 80 MG Carbidopa/Levodopa (Sinemet 25/ 100MG Tab) 2 tab QID PEG 05/12/16 21:00 06/11/16 20:59 05/13/16 09:19 2 TAB Digoxin (Lanoxin Tab) 0.125 mg DAILY@1600 PEG 05/13/16 16:00 06/12/16 15:59 Docusate Sodium (coLACE SYRUP) 100 mg DAILY PRN PEG 05/12/16 20:15 06/11/16 20:14 Senna (Senokot Syrup) 17.6 mg DAILY PRN PEG 05/12/16 20:15 06/11/16 20:14 Finasteride (Proscar Tab) 5 mg HS PEG 05/12/16 21:00 06/11/16 20:59 Multivitamins Therapeutic (Cerovite Liquid) 15 ml DAILY PEG 05/13/16 09:00 06/12/16 08:59 05/13/16 09:18 15 ML Potassium Chloride (Zaynab Ciel Elix) 20 meq QID PEG 05/12/16 21:00 06/11/16 20:59 05/13/16 09:18 20 MEQ Glycopyrrolate (Robinul Tab) 0.5 mg Q8 PO 05/13/16 14:00 06/12/16 13:59 05/13/16 09:36 0.5 MG Metoprolol Tartrate (Lopressor Iv) 5 mg Q4 PRN IV 05/13/16 12:00 06/12/16 11:59 Metoprolol Tartrate (Lopressor Tab) 25 mg Q8 PEG 05/13/16 14:00 06/12/16 13:59 Insulin Aspart SLIDING SCALE G... Q6 SC 05/13/16 12:00 06/12/16 11:59 Bumetanide 0.5 mg/ Syringe 2 ml @ 4 mls/hr ONE ONCE IV 05/13/16 10:15 05/13/16 10:44 Bumetanide/Syringe (Bumex IV/ Syringe) 4 ml @ 4 mls/hr DAILY IV 05/14/16 09:00 06/13/16 08:59 I & O: 24-Hour Column 05/13/16 08:00 Intake Total 2531 ml Output Total 2575 ml Balance -44 ml Vital Signs: Date Time Temp Pulse Resp B/P Pulse Ox O2 Delivery O2 Flow Rate FiO2 05/13/16 09:21 106 126/87 05/13/16 06:00 37.5 99 24 116/75 94 Nasal Cannula 4.0 05/13/16 04:05 104 132/81 05/13/16 04:00 93 Nasal Cannula 4.0 05/13/16 04:00 37.4 105 32 132/81 93 Nasal Cannula 4.0 05/13/16 02:00 101 14 123/82 91 Nasal Cannula 4.0 05/13/16 00:00 92 Nasal Cannula 4.0 05/13/16 00:00 37.5 93 14 115/73 93 Nasal Cannula 4.0 05/12/16 22:00 92 12 132/80 94 Nasal Cannula 3.0 05/12/16 21:36 90 113/59 05/12/16 20:00 90 Nasal Cannula 3.0 05/12/16 20:00 36.4 91 25 111/68 90 Nasal Cannula 3.0 05/12/16 18:08 106 05/12/16 18:07 106 122/79 05/12/16 18:00 98 30 126/81 93 Nasal Cannula 2.0 05/12/16 16:00 37.3 108 28 122/71 94 Nasal Cannula 2.0 05/12/16 16:00 94 Nasal Cannula 2.0 05/12/16 14:00 98 26 114/70 94 Nasal Cannula 2.0 05/12/16 12:00 96 Nasal Cannula 2.0 05/12/16 12:00 37.1 101 28 127/86 92 Nasal Cannula 2.0 05/12/16 11:09 113 124/78 Laboratory Results: Last 24 Hours Test 05/12/16 10:57 05/12/16 16:14 05/12/16 20:37 05/13/16 05:43 Bedside Glucose 266 mg/dl 285 mg/dl 245 mg/dl 280 mg/dl White Blood Count 15.67 K/uL Red Blood Count 5.29 M/uL Hemoglobin 16.4 g/dL Hematocrit 48.8 % Mean Corpuscular Volume 92.2 fL Mean Corpuscular Hemoglobin 31.0 pg Mean Corpuscular Hemoglobin Concent 33.6 g/dl Platelet Count 128 K/uL Mean Platelet Volume 11.1 fL Neutrophils (%) (Auto) 81.9 % Lymphocytes (%) (Auto) 7.0 % Monocytes (%) (Auto) 10.5 % Eosinophils (%) (Auto) 0.1 % Basophils (%) (Auto) 0.2 % Neutrophils # (Auto) 12.86 K/uL Lymphocytes # (Auto) 1.09 K/uL Monocytes # (Auto) 1.64 K/uL Eosinophils # (Auto) 0.01 K/uL Basophils # (Auto) 0.03 K/uL RDW Standard Deviation 50.2 fL RDW Coefficient of Variation 14.9 % Immature Granulocyte % (Auto) 0.3 % Immature Granulocyte # (Auto) 0.04 K/uL Sodium Level 147 mmol/L Potassium Level 4.8 mmol/L Chloride Level 113 mmol/L Carbon Dioxide Level 21 mmol/L Anion Gap 13.0 mmol/L Blood Urea Nitrogen 27 mg/dl Creatinine 1.60 mg/dl Est Creatinine Clear Calc Drug Dose 44.4 ml/min Estimated GFR () 49.2 Estimated GFR (Non- 42.4 BUN/Creatinine Ratio 17.0 Random Glucose 303 mg/dl Calcium Level 9.2 mg/dl Magnesium Level 2.3 mg/dl Beta-Hydroxybutyric Acid 37.15 mg/dL
[2016-05-13] MEDS ORDERED: INSULIN ASPART 100 UNITS/ML 3 ML PEN SC SCH (12:00)
[2016-05-13] MEDS ORDERED: METOPROLOL TARTRATE 1 MG/ML VIAL IV PRN (12:00)
[2016-05-13] MEDS: CEFTRIAXONE SOD INJ 1 GM in DEXTROSE 5% ADD-VANTAGE 50ML 50 ML IV SCH (13:06)
[2016-05-13] MEDS: PANTOprazole INJ 40 MG in SYRINGE 0 ML IV SCH (13:07)
[2016-05-13] MEDS ORDERED: METOPROLOL TARTRATE 25 MG TAB PO SCH (14:00)
[2016-05-13] MEDS ORDERED: METOPROLOL TARTRATE 25 MG TAB PEG SCH (14:00)
--- NOTE | 2016-05-13 15:43 | Palliative Care Consultation ---
Consultation Date of Consultation: May 13, 2016. Requesting Physician: Dr. Kam Attending Physician: Dr. Guthrie Reason for Consultation: Goals of care, symptom management History of Present Illness This 70 year old male patient presented to the ED four days ago with complaints of right sided weakness and facial droop. A CT scan showed possible acute left sided CVA. A stroke alert was called and the patient and family opted for t-PA. Unfortunately, post t-PA, the stroke converted to hemorrhagic. Patient also found to have a clot in his IVC filter. The family was unsure of whether or not they'd like patient to be transferred to tertiary care for aggressive, surgical treatment, or to opt for comfort measures only given: the patient will likely not have a meaningful recovery, his history of Parkinson's/dementia and history of CHF with an EF of 15%. The family decided, based on the patient's living will which states he would not want heroic measures if there was little chance of recovery, to make the patient "comfort measures only." Palliative care consulted to assist with goals of care and symptom management. I met with the patient's an daughter in the room. Unfortunately, patient is nonverbal and unable to participate in conversation. The and daughter confirmed that they would like patient to be comfort measures only. I gave education on end of life and explained what they may have to expect with patient 's clinical course and care. See plan below. Past Medical/Surgical History Medical History: CHF, EF 15% Pacer/AICD Parkinson's Dementia Diabetes Social History Smoking Status: Never Smoker History of Alcohol Use: No Drug Use: none Marital Status: Housing Status: lives with family Occupation Status: retired Review of Systems unable to obtain Allergies Coded Allergies: Sulfa Antibiotics (Unverified Allergy, Severe, red splotches that itch, ) Propoxyphene (Verified Allergy, Unknown, 02/28/14) Medications Current Inpatient Medications Medications (Trade) Dose Ordered Sig/Eddie Route Start Time Stop Time Status Last Admin Dose Admin Losartan Potassium (coZAAR TAB) 12.5 mg DAILY PO 05/11/16 09:00 06/10/16 08:59 Future Hold Methenamine Hippurate (Urex Tab) 1 gm BID PO 05/11/16 09:00 05/21/16 08:59 05/13/16 09:19 1 GM Pramipexole Dihydrochloride (miraPEX TAB) 0.25 mg TID PO 05/11/16 09:00 06/10/16 08:59 05/13/16 09:21 0.25 MG Selegiline HCl (Eldepryl Cap) 5 mg DAILY PO 05/11/16 09:00 06/10/16 08:59 05/13/16 09:20 5 MG Mirtazapine 30 mg 30 mg HS PO 05/11/16 21:00 06/10/16 20:59 05/12/16 21:33 30 MG Pantoprazole Sodium/Syringe (Protonix Inj/ Syringe) 10 ml @ 5 mls/min DAILY@1100 IV 05/11/16 11:00 06/10/16 10:59 05/13/16 13:07 5 MLS/MIN Morphine Sulfate (MoRPHine SULFATE INJ) 2 mg Q2H PRN IV 05/10/16 22:15 05/24/16 22:14 Miscellaneous Information 1 ea 1 ea UD PRN N/A 05/10/16 22:15 06/09/16 22:14 Sodium Chloride 1,000 ml @ 75 mls/hr [id number] IV 05/11/16 12:00 06/10/16 11:59 05/13/16 04:04 75 MLS/HR Ceftriaxone Sodium 1 gm/ Dextrose 50 ml @ 100 mls/hr Q24H IV 05/11/16 13:00 05/21/16 12:59 05/13/16 13:06 100 MLS/HR Acetaminophen/ Empty Bag (Ofirmev IV/ Empty Iv Bag 100ml) 65 ml @ 260 mls/hr Q6H PRN IV 05/11/16 12:45 06/10/16 12:44 Enteral Nutritional Formula 1000 ml 1,000 ml UD PO 05/12/16 09:00 06/11/16 08:59 Nicardipine HCl/ Sodium Chloride (Cardene Iv/Nss 250ml) 250 ml @ 0 mls/hr Q0M PRN IV 05/11/16 22:29 06/10/16 22:28 Acetaminophen (Tylenol Soln) 650 mg Q4H PRN PEG 05/12/16 20:15 06/11/16 20:14 Atorvastatin Calcium (Lipitor Tab) 80 mg DAILY PEG 05/13/16 09:00 06/12/16 08:59 05/13/16 09:19 80 MG Carbidopa/Levodopa (Sinemet 25/ 100MG Tab) 2 tab QID PEG 05/12/16 21:00 06/11/16 20:59 05/13/16 13:08 2 TAB Digoxin (Lanoxin Tab) 0.125 mg DAILY@1600 PEG 05/13/16 16:00 06/12/16 15:59 Docusate Sodium (coLACE SYRUP) 100 mg DAILY PRN PEG 05/12/16 20:15 06/11/16 20:14 Senna (Senokot Syrup) 17.6 mg DAILY PRN PEG 05/12/16 20:15 06/11/16 20:14 Finasteride (Proscar Tab) 5 mg HS PEG 05/12/16 21:00 06/11/16 20:59 Multivitamins Therapeutic (Cerovite Liquid) 15 ml DAILY PEG 05/13/16 09:00 06/12/16 08:59 05/13/16 09:18 15 ML Potassium Chloride (Zaynab Ciel Elix) 20 meq QID PEG 05/12/16 21:00 06/11/16 20:59 05/13/16 13:07 20 MEQ Glycopyrrolate (Robinul Tab) 0.5 mg Q8 PO 05/13/16 14:00 06/12/16 13:59 05/13/16 09:36 0.5 MG Metoprolol Tartrate (Lopressor Iv) 5 mg Q4 PRN IV 05/13/16 12:00 06/12/16 11:59 Metoprolol Tartrate (Lopressor Tab) 25 mg Q8 PEG 05/13/16 14:00 06/12/16 13:59 Insulin Aspart SLIDING SCALE G... Q6 SC 05/13/16 12:00 06/12/16 11:59 05/13/16 13:10 4 UNITS Bumetanide/Syringe (Bumex IV/ Syringe) 4 ml @ 4 mls/hr DAILY IV 05/14/16 09:00 06/13/16 08:59 Miscellaneous Information (Nursing Verbal Med Order) 1 ea ONE ONCE N/A 05/13/16 15:15 05/13/16 15:16 UNV Physical Exam Date Time Temp Pulse Resp B/P Pulse Ox O2 Delivery O2 Flow Rate FiO2 05/13/16 12:00 94 Nasal Cannula 4.0 05/13/16 12:00 37.5 94 28 123/80 94 Nasal Cannula 4.0 05/13/16 10:00 96 28 131/91 93 Nasal Cannula 4.0 05/13/16 09:21 106 126/87 05/13/16 08:00 37.3 104 30 136/82 92 Nasal Cannula 4.0 05/13/16 08:00 Nasal Cannula 05/13/16 08:00 92 Nasal Cannula 4.0 05/13/16 06:00 37.5 99 24 116/75 94 Nasal Cannula 4.0 05/13/16 04:05 104 132/81 05/13/16 04:00 93 Nasal Cannula 4.0 05/13/16 04:00 37.4 105 32 132/81 93 Nasal Cannula 4.0 05/13/16 02:00 101 14 123/82 91 Nasal Cannula 4.0 05/13/16 00:00 92 Nasal Cannula 4.0 05/13/16 00:00 37.5 93 14 115/73 93 Nasal Cannula 4.0 05/12/16 22:00 92 12 132/80 94 Nasal Cannula 3.0 05/12/16 21:36 90 113/59 05/12/16 20:00 90 Nasal Cannula 3.0 05/12/16 20:00 36.4 91 25 111/68 90 Nasal Cannula 3.0 05/12/16 18:08 106 05/12/16 18:07 106 122/79 05/12/16 18:00 98 30 126/81 93 Nasal Cannula 2.0 05/12/16 16:00 37.3 108 28 122/71 94 Nasal Cannula 2.0 05/12/16 16:00 94 Nasal Cannula 2.0 General Appearance: no apparent distress Neck: no JVD Respiratory: no respiratory distress, no accessory muscle use, + rhonchi ( coarse), + pertinent finding (92% on 4LNC) Cardiovascular: regular rate, rhythm, + pertinent finding (Has pacer/ICD) Abdomen: normal bowel sounds, non tender, soft Neurologic/Psychiatric: + aphasia (nonverbal), + pertinent finding (right side weak, not moving right leg) Skin: normal color Laboratory Results Last 24 Hours Test 05/12/16 16:14 05/12/16 20:37 05/13/16 05:43 05/13/16 13:02 Bedside Glucose 285 mg/dl 245 mg/dl 280 mg/dl 307 mg/dl White Blood Count 15.67 K/uL Red Blood Count 5.29 M/uL Hemoglobin 16.4 g/dL Hematocrit 48.8 % Mean Corpuscular Volume 92.2 fL Mean Corpuscular Hemoglobin 31.0 pg Mean Corpuscular Hemoglobin Concent 33.6 g/dl Platelet Count 128 K/uL Mean Platelet Volume 11.1 fL Neutrophils (%) (Auto) 81.9 % Lymphocytes (%) (Auto) 7.0 % Monocytes (%) (Auto) 10.5 % Eosinophils (%) (Auto) 0.1 % Basophils (%) (Auto) 0.2 % Neutrophils # (Auto) 12.86 K/uL Lymphocytes # (Auto) 1.09 K/uL Monocytes # (Auto) 1.64 K/uL Eosinophils # (Auto) 0.01 K/uL Basophils # (Auto) 0.03 K/uL RDW Standard Deviation 50.2 fL RDW Coefficient of Variation 14.9 % Immature Granulocyte % (Auto) 0.3 % Immature Granulocyte # (Auto) 0.04 K/uL Sodium Level 147 mmol/L Potassium Level 4.8 mmol/L Chloride Level 113 mmol/L Carbon Dioxide Level 21 mmol/L Anion Gap 13.0 mmol/L Blood Urea Nitrogen 27 mg/dl Creatinine 1.60 mg/dl Est Creatinine Clear Calc Drug Dose 44.4 ml/min Estimated GFR () 49.2 Estimated GFR (Non- 42.4 BUN/Creatinine Ratio 17.0 Random Glucose 303 mg/dl Calcium Level 9.2 mg/dl Magnesium Level 2.3 mg/dl Beta-Hydroxybutyric Acid 37.15 mg/dL Assessment & Plan Palliative Performance Scale: 10 % Problem list: Right sided weakness Abnormal secretions Aphasia/nonverbal Acute CVA involving left MCA, converted to hemorrhagic stroke post t-PA Parkinson's/dementia CHF- EF 15% No PO intake, inability to swallow Goals of care (Z51.5) Palliative care plan: Discussed with patient's , Zaynab, daughter, Dr. Guthrie, and Dr. Kam. Patient's family has decided to make patient comfort measures only, discontinue IVF, discontinue medications unrelated to comfort, and discontinue NG tube. They are okay with patient being transferred to fourth floor for comfort, but are aware that he may be transferred out on comfort measures or possibly GIP admission depending on his clinical course. If patient is going to be transferred, will complete a POLST form with them. Recommend: morphine 2mg IV Q2h PRN pain or SOB. Continue Robinul, start scopolamine patch for secretions. Thank you kindly for this consult. I will follow as needed.
[2016-05-13] MEDS ORDERED: DIGOXIN 0.125 MG TAB PEG SCH (16:00)
[2016-05-13] MEDS ORDERED: SCOPOLAMINE 1.5 MG TDSY TD SCH (17:45)
[2016-05-13] MEDS ORDERED: ATROPINE SULFATE 1% OP SOLN 2 ML BTL PO PRN (18:00)
--- NOTE | 2016-05-13 18:00 | Family Medicine Progress Note ---
Progress Note Date of Service May 13, 2016. Subjective Pt evaluation today including: conversation w/ family, physical exam, chart review, lab review Patient aphasic. Squeezed hand in response to not having pain, but likely fell asleep thereafter as he stopped interacting Medications Medications Administered Medications (Trade) Dose Ordered Sig/Eddie Route Start Time Stop Time Status Last Admin Dose Admin Alteplase, Recombinant 78 mg/ Empty Bag 78 ml @ 78 mls/hr TODAY@2133 ONCE IV 05/10/16 21:33 05/10/16 22:32 DC 05/10/16 21:46 78 MLS/HR Alteplase, Recombinant/ Syringe (Activase Inj/ Syringe) 7.8 ml @ 7.8 mls/min TODAY@2133 ONCE IV 05/10/16 21:33 05/10/16 21:34 DC 05/10/16 21:42 7.8 MLS/MIN Atorvastatin Calcium (Lipitor Tab) 80 mg DAILY PO 05/11/16 09:00 05/12/16 20:08 DC 05/12/16 11:12 80 MG Carbidopa/Levodopa (Sinemet 25/ 100MG Tab) 2 tab QID PO 05/11/16 09:00 05/12/16 20:08 DC 05/12/16 18:08 2 TAB Digoxin (Lanoxin Tab) 0.125 mg DAILY@1600 PO 05/11/16 16:00 05/12/16 20:09 DC 05/12/16 18:08 0.125 MG Methenamine Hippurate (Urex Tab) 1 gm BID PO 05/11/16 09:00 05/13/16 16:49 DC 05/13/16 09:19 1 GM Multivitamins/ Minerals (Multivitamin W/ Minerals Tab) 1 tab DAILY PO 05/11/16 09:00 05/12/16 20:17 DC 05/12/16 11:11 1 TAB Potassium Chloride (Klor-Con Tab) 20 meq QID PO 05/11/16 09:00 05/12/16 17:08 DC 05/12/16 13:00 20 MEQ Pramipexole Dihydrochloride (miraPEX TAB) 0.25 mg TID PO 05/11/16 09:00 05/13/16 16:49 DC 05/13/16 09:21 0.25 MG Selegiline HCl (Eldepryl Cap) 5 mg DAILY PO 05/11/16 09:00 05/13/16 16:49 DC 05/13/16 09:20 5 MG Mirtazapine 30 mg 30 mg HS PO 05/11/16 21:00 05/13/16 16:49 DC 05/12/16 21:33 30 MG Pantoprazole Sodium/Syringe (Protonix Inj/ Syringe) 10 ml @ 5 mls/min DAILY@1100 IV 05/11/16 11:00 05/13/16 16:49 DC 05/13/16 13:07 5 MLS/MIN Insulin Aspart SLIDING SCALE G... ACHS SC 05/11/16 06:45 05/13/16 09:57 DC 05/13/16 05:47 3 UNITS Sodium Chloride 1,000 ml @ 75 mls/hr [id number] IV 05/11/16 12:00 05/13/16 15:21 DC 05/13/16 04:04 75 MLS/HR Ceftriaxone Sodium/Dextrose (Rocephin Inj/ Dextrose Add-Clayton 50ML) 50 ml @ 100 mls/hr Q24H IV 05/11/16 13:00 05/13/16 16:49 DC 05/13/16 13:06 100 MLS/HR Metoprolol Tartrate (Lopressor Iv) 2.5 mg Q6H IV. 05/11/16 13:00 05/12/16 09:40 DC 05/12/16 01:04 2.5 MG Perflutren Lipid Microsphere (Definity) 2 ml ONE ONCE IV 05/11/16 13:22 05/11/16 13:23 DC 05/11/16 13:22 2 ML Metoprolol Tartrate (Lopressor Iv) 5 mg Q6H IV. 05/12/16 16:00 05/13/16 09:33 DC 05/13/16 09:21 5 MG Metoprolol Tartrate 5 mg 5 mg TODAY@1030 ONCE IV 05/12/16 10:30 05/12/16 10:31 DC 05/12/16 11:09 5 MG Bumetanide/Syringe (Bumex IV/ Syringe) 2 ml @ 4 mls/hr DAILY IV 05/13/16 09:00 05/13/16 10:02 DC 05/13/16 09:18 2 MLS/HR Atorvastatin Calcium (Lipitor Tab) 80 mg DAILY PEG 05/13/16 09:00 05/13/16 16:49 DC 05/13/16 09:19 80 MG Carbidopa/Levodopa (Sinemet 25/ 100MG Tab) 2 tab QID PEG 05/12/16 21:00 05/13/16 16:49 DC 05/13/16 13:08 2 TAB Multivitamins Therapeutic (Cerovite Liquid) 15 ml DAILY PEG 05/13/16 09:00 05/13/16 16:49 DC 05/13/16 09:18 15 ML Potassium Chloride (Zaynab Ciel Elix) 20 meq QID PEG 05/12/16 21:00 05/13/16 16:49 DC 05/13/16 13:07 20 MEQ Glycopyrrolate (Robinul Tab) 0.5 mg Q8 PO 05/13/16 14:00 05/13/16 16:49 DC 05/13/16 09:36 0.5 MG Insulin Aspart SLIDING SCALE G... Q6 SC 05/13/16 12:00 05/13/16 16:49 DC 05/13/16 13:10 4 UNITS Bumetanide/Syringe (Bumex IV/ Syringe) 2 ml @ 4 mls/hr ONE ONCE IV 05/13/16 10:15 05/13/16 10:44 DC 05/13/16 13:07 4 MLS/HR Objective Vital Signs Date Time Temp Pulse Resp B/P Pulse Ox O2 Delivery O2 Flow Rate FiO2 05/13/16 16:00 37.7 105 32 129/86 92 Nasal Cannula 4.0 05/13/16 16:00 92 Nasal Cannula 4.0 05/13/16 14:00 99 26 128/82 91 Nasal Cannula 4.0 05/13/16 12:00 94 Nasal Cannula 4.0 05/13/16 12:00 37.5 94 28 123/80 94 Nasal Cannula 4.0 05/13/16 10:00 96 28 131/91 93 Nasal Cannula 4.0 05/13/16 09:21 106 126/87 05/13/16 08:00 37.3 104 30 136/82 92 Nasal Cannula 4.0 05/13/16 08:00 Nasal Cannula 05/13/16 08:00 92 Nasal Cannula 4.0 05/13/16 06:00 37.5 99 24 116/75 94 Nasal Cannula 4.0 05/13/16 04:05 104 132/81 05/13/16 04:00 93 Nasal Cannula 4.0 05/13/16 04:00 37.4 105 32 132/81 93 Nasal Cannula 4.0 05/13/16 02:00 101 14 123/82 91 Nasal Cannula 4.0 05/13/16 00:00 92 Nasal Cannula 4.0 05/13/16 00:00 37.5 93 14 115/73 93 Nasal Cannula 4.0 05/12/16 22:00 92 12 132/80 94 Nasal Cannula 3.0 05/12/16 21:36 90 113/59 05/12/16 20:00 90 Nasal Cannula 3.0 05/12/16 20:00 36.4 91 25 111/68 90 Nasal Cannula 3.0 05/12/16 18:08 106 05/12/16 18:07 106 122/79 05/12/16 18:00 98 30 126/81 93 Nasal Cannula 2.0 Physical Exam General Appearance: WD/WN, no apparent distress Neck: supple, + pertinent finding (NG tube in situ) Respiratory/Chest: lungs clear, no respiratory distress, no accessory muscle use, + decreased breath sounds, + rhonchi Cardiovascular: no murmur, + tachycardia Abdomen: normal bowel sounds, soft Extremities: no pedal edema Neurologic/Psychiatric: + aphasia, + motor weakness Skin: normal color, warm/dry, no rash Laboratory Results Results Past 24 Hours Test 05/12/16 20:37 05/13/16 05:43 05/13/16 13:02 Range/Units Bedside Glucose 245 280 307 70-99 mg/dl White Blood Count 15.67 4.8-10.8 K/uL Red Blood Count 5.29 4.7-6.1 M/uL Hemoglobin 16.4 14.0-18.0 g/dL Hematocrit 48.8 42-52 % Mean Corpuscular Volume 92.2 80-100 fL Mean Corpuscular Hemoglobin 31.0 25-34 pg Mean Corpuscular Hemoglobin Concent 33.6 32-36 g/dl Platelet Count 128 130-400 K/uL Mean Platelet Volume 11.1 7.4-10.4 fL Neutrophils (%) (Auto) 81.9 % Lymphocytes (%) (Auto) 7.0 % Monocytes (%) (Auto) 10.5 % Eosinophils (%) (Auto) 0.1 % Basophils (%) (Auto) 0.2 % Neutrophils # (Auto) 12.86 1.4-6.5 K/uL Lymphocytes # (Auto) 1.09 1.2-3.4 K/uL Monocytes # (Auto) 1.64 0.11-0.59 K/uL Eosinophils # (Auto) 0.01 0-0.5 K/uL Basophils # (Auto) 0.03 0-0.2 K/uL RDW Standard Deviation 50.2 36.4-46.3 fL RDW Coefficient of Variation 14.9 11.5-14.5 % Immature Granulocyte % (Auto) 0.3 % Immature Granulocyte # (Auto) 0.04 0.00-0.02 K/uL Sodium Level 147 136-145 mmol/L Potassium Level 4.8 3.5-5.1 mmol/L Chloride Level 113 98-107 mmol/L Carbon Dioxide Level 21 21-32 mmol/L Anion Gap 13.0 3-11 mmol/L Blood Urea Nitrogen 27 7-18 mg/dl Creatinine 1.60 0.60-1.40 mg/dl Est Creatinine Clear Calc Drug Dose 44.4 ml/min Estimated GFR () 49.2 Estimated GFR (Non- 42.4 BUN/Creatinine Ratio 17.0 10-20 Random Glucose 303 70-99 mg/dl Calcium Level 9.2 8.5-10.1 mg/dl Magnesium Level 2.3 1.8-2.4 mg/dl Beta-Hydroxybutyric Acid 37.15 0.2-2.81 mg/dL Assessment and Plan This is a 70 year old male with history of low output CHF (EF <15%), pacemaker/ AICD, DM on insulin with CKD stage III, atrial fibrillation (not on AC presumably due to Parkinson's/risk of fall), HTN, HLD, chronic urethral stricture requiring self-cath TID at homeand Parkinson's presented to the ED with R sided weakness and L facial droop for 50 minutes [employer]. CT head showed acute left insular CVA and evaluated promptly by the telestroke service. TPA was administered. Acute Left frontal lobe stroke with hemorrhagic - Repeated CT showed: 1. Large acute left frontal lobe infarct. 2. No evidence of acute hemorrhage 3. Old right occipital lobe infarct - Right sided weakness slightly improved, expressive aphasia ongoing - Continue Lipitor 80 - All the hypertensive medications are on hold - Can't have MRI due to pacer-defib - Neuro check per stroke protocol - Patient is NPO - Carotid US showed no carotid stenosis. - Venous Doppler b/l LE reported no DVT within the right or left lower extremity. - Echo showed: 0.5cm, mobile, echogenic mass in IVC, most consistent with thrombus. - Neurology was consulted and will appreciate their recommendations. - CT was repeated to assess brain edema and for hemorrhage on 05/11 and showed: Since the prior study, the patient has developed hemorrhage into the area of left frontal infarction. Addition there are areas of subarachnoid hemorrhage within the left frontal and parietal lobes. - Currently NPO and will place feeding tube after 24 hr jesus of TPA administration - Patient's family offered transfer to [facility] for embolectomy, but they declined. Want to pursue limited aggressive therapies - NG tube was inserted to facilitate drug and nourishment administration - It was attempted to elicit patient's preference on PEG insertion, no answer derived - Family was gathered and decided on comfort care measures. - NG tube removed. Severe chronic systolic congested heart failure - EF is <15% - Holding losartan and spironolactone for now. - Cardio suggests start low dose IV lopressor for tachycardia for now, holding other cardiac meds. Hold ASA for TPA Hold digoxin until Dobbhoff placed. Not on diuretics at this time. Restart Toprol XL 75 once daily when able to - Blood pressure low for perfusion, thus started Lopressor 2.5mg IV q6h - Echo performed showed: Moderately dilated LV. Normal LV wall thickness. Global severe LV dysfunction. LVEF <15%. Grade III diastolic dysfunction. Normal RV size and function. No significant valvular pathology. Normal estimated RA pressure. 0.5cm, mobile, echogenic mass in IVC, most consistent with thrombus. - In view of comfort care measures all PO cardiac medications discontinued except bumetanide and metoprolol IV. A. fib - ASA on hold - No anticoagulant at this time in view of recently administered TPA - Continue Digoxin 0.125mg - Start heparin BID tomorrow am after repeat CT - Echo is ordered and showed IVC thrombus, which is a complicating factor, but no LV thrombus seen. IVC clot likely to be old given it did not dissipate with TPA - Cardio recommends consider anticoagulant for A.fib when safe to do so - In view of comfort care measures all PO medications discontinued DM - on sliding scale and novolog 15unit qam - In view of comfort care measures all insulin medications discontinued CKD stage 3 - Stable, baseline creatinine is 1.40-1.60 - - In view of comfort care measures all lab work discontinued Complicated UTI - Patient has urethral stricture and self cath at home - UA done and urine culture grew gram positive cocci - Of note, patient had head cold for 2-3 days prior to CVA, and CT shows right max sinusitis - Patient has low grade fever - Continue with Rocephin 1g IV - - In view of comfort care measures all medications discontinued Parkinson's disease - Carbidopa/Levodopa on hold. - Selegiline on hold - Meds restarted when NG feeding tube inserted - In view of comfort care measures all PO PD medications discontinued Restless leg syndrome - Pramipexole on hold - In view of comfort care measures all PO medications discontinued DVT prophylaxis - contraindication after tPA for 24hrs - were cnosidering to start heparin, but not an option given hemorrhagic conversion of CVA - SCDs recommended - In view of comfort care measures all SCDs discontinued Dispo - Code status: DNR/DNI - Patient's family decided on comfort care measures - Palliative care consulted, had an in-depth conversation with and daughter , recommended morphine 2mg IV Q2h PRN pain or SOB. Continue Robinul, start scopolamine patch for secretions - Family agreeable for NG removable and deactivation of pacemaker (order put in) - Scopolamine and atropine ordered - Family indicates that he is an organ donor - organ harvesting to be coordinated after passing. - Will transfer of patient from ICU to [facility] Resident Physician Supervision Note: I interviewed and examined the patient. Discussed with Dr. Maciel and agree with findings and plan as documented in the note. Any exceptions or clarifications are listed here: None Documented By: Armani Guthrie extensive d/w family by ICU and then palliative. clear decision for comfort measures only. dtr asked if (for closure) she could remove NGT. i instructed her on doing this and supervised as she did. no HPI or ROS obtainable from pt family reiterated their decisions, offered empathy and support. d/w ICU and palliative care teams vitals noted, NAD, NGT removed by dtr at her request with my supervision. moving L arm some CVA w hemorrhagic transformation severe dysphagia, IVC thrombus, severe underyling systolic cardiomyopathy -comfort care Continued [facility] stay due to: abnormal vital signs
[2016-05-14] MEDS: CHECK SCOPOLAMINE PATCH PLACEMENT SCH ×4 (00:05→23:30)
[2016-05-14] MEDS: MoRPHine SULFATE 2 MG/ML CARP IV PRN ×2 (00:07→21:56)
[2016-05-14 00:11] VITALS: TEMP 38.6
[2016-05-14] MEDS ORDERED: BUMETANIDE IV 1 MG in SYRINGE 0 ML IV SCH (08:00)
--- NOTE | 2016-05-14 09:18 | CARDIOLOGY PROGRESS NOTE ---
DATE: 05/14/2016 DATE: 05/14/2016. Mr. Keith is a 70-year-old white male with multiple significant medical issues compounded by recent left MCA territory infarct with hemorrhagic conversion. There is very little hope of recovery. The patient is currently on palliative care / comfort measures only. I met with his today and offered my empathy and support. There are no new cardiology recommendations at this time. Continue comfort measures. NARAYAN
[2016-05-14 11:12] VITALS: Ht 180.3 cm; Wt 81.6 kg
[2016-05-14] MEDS ORDERED: ACETAMINOPHEN 650 MG SUPP PR PRN (12:30)
[2016-05-14] MEDS ORDERED: ACETAMINOPHEN 650 MG SUPP PR ONE (13:15)
--- NOTE | 2016-05-14 14:03 | Family Medicine Progress Note ---
Progress Note Date of Service May 14, 2016. Subjective Pt evaluation today including: conversation w/ family, physical exam, chart review, lab review Patient non responsive, as such no HPI or ROS elicited. He has been febrile overnight. Stable vitals otherwise on 4L oxygen via nasal cannula. struggling with comfort care measures, but offered empathy concerned about fever and concerned about constipation Medications Medications Administered Medications (Trade) Dose Ordered Sig/Eddie Route Start Time Stop Time Status Last Admin Dose Admin Alteplase, Recombinant 78 mg/ Empty Bag 78 ml @ 78 mls/hr TODAY@2133 ONCE IV 05/10/16 21:33 05/10/16 22:32 DC 05/10/16 21:46 78 MLS/HR Alteplase, Recombinant/ Syringe (Activase Inj/ Syringe) 7.8 ml @ 7.8 mls/min TODAY@2133 ONCE IV 05/10/16 21:33 05/10/16 21:34 DC 05/10/16 21:42 7.8 MLS/MIN Atorvastatin Calcium (Lipitor Tab) 80 mg DAILY PO 05/11/16 09:00 05/12/16 20:08 DC 05/12/16 11:12 80 MG Carbidopa/Levodopa (Sinemet 25/ 100MG Tab) 2 tab QID PO 05/11/16 09:00 05/12/16 20:08 DC 05/12/16 18:08 2 TAB Digoxin (Lanoxin Tab) 0.125 mg DAILY@1600 PO 05/11/16 16:00 05/12/16 20:09 DC 05/12/16 18:08 0.125 MG Methenamine Hippurate (Urex Tab) 1 gm BID PO 05/11/16 09:00 05/13/16 16:49 DC 05/13/16 09:19 1 GM Multivitamins/ Minerals (Multivitamin W/ Minerals Tab) 1 tab DAILY PO 05/11/16 09:00 05/12/16 20:17 DC 05/12/16 11:11 1 TAB Potassium Chloride (Klor-Con Tab) 20 meq QID PO 05/11/16 09:00 05/12/16 17:08 DC 05/12/16 13:00 20 MEQ Pramipexole Dihydrochloride (miraPEX TAB) 0.25 mg TID PO 05/11/16 09:00 05/13/16 16:49 DC 05/13/16 09:21 0.25 MG Selegiline HCl (Eldepryl Cap) 5 mg DAILY PO 05/11/16 09:00 05/13/16 16:49 DC 05/13/16 09:20 5 MG Mirtazapine 30 mg 30 mg HS PO 05/11/16 21:00 05/13/16 16:49 DC 05/12/16 21:33 30 MG Pantoprazole Sodium/Syringe (Protonix Inj/ Syringe) 10 ml @ 5 mls/min DAILY@1100 IV 05/11/16 11:00 05/13/16 16:49 DC 05/13/16 13:07 5 MLS/MIN Morphine Sulfate (MoRPHine SULFATE INJ) 2 mg Q2H PRN IV 05/10/16 22:15 05/24/16 22:14 05/14/16 00:07 2 MG Insulin Aspart SLIDING SCALE G... ACHS SC 05/11/16 06:45 05/13/16 09:57 DC 05/13/16 05:47 3 UNITS Sodium Chloride 1,000 ml @ 75 mls/hr [id number] IV 05/11/16 12:00 05/13/16 15:21 DC 05/13/16 04:04 75 MLS/HR Ceftriaxone Sodium/Dextrose (Rocephin Inj/ Dextrose Add-[place] 50ML) 50 ml @ 100 mls/hr Q24H IV 05/11/16 13:00 05/13/16 16:49 DC 05/13/16 13:06 100 MLS/HR Metoprolol Tartrate (Lopressor Iv) 2.5 mg Q6H IV. 05/11/16 13:00 05/12/16 09:40 DC 05/12/16 01:04 2.5 MG Perflutren Lipid Microsphere (Definity) 2 ml ONE ONCE IV 05/11/16 13:22 05/11/16 13:23 DC 05/11/16 13:22 2 ML Metoprolol Tartrate (Lopressor Iv) 5 mg Q6H IV. 05/12/16 16:00 05/13/16 09:33 DC 05/13/16 09:21 5 MG Metoprolol Tartrate 5 mg 5 mg TODAY@1030 ONCE IV 05/12/16 10:30 05/12/16 10:31 DC 05/12/16 11:09 5 MG Bumetanide/Syringe (Bumex IV/ Syringe) 2 ml @ 4 mls/hr DAILY IV 05/13/16 09:00 05/13/16 10:02 DC 05/13/16 09:18 2 MLS/HR Atorvastatin Calcium (Lipitor Tab) 80 mg DAILY PEG 05/13/16 09:00 05/13/16 16:49 DC 05/13/16 09:19 80 MG Carbidopa/Levodopa (Sinemet 25/ 100MG Tab) 2 tab QID PEG 05/12/16 21:00 05/13/16 16:49 DC 05/13/16 13:08 2 TAB Multivitamins Therapeutic (Cerovite Liquid) 15 ml DAILY PEG 05/13/16 09:00 05/13/16 16:49 DC 05/13/16 09:18 15 ML Potassium Chloride (Zaynab Ciel Elix) 20 meq QID PEG 05/12/16 21:00 05/13/16 16:49 DC 05/13/16 13:07 20 MEQ Glycopyrrolate (Robinul Tab) 0.5 mg Q8 PO 05/13/16 14:00 05/13/16 16:49 DC 05/13/16 09:36 0.5 MG Insulin Aspart SLIDING SCALE G... Q6 SC 05/13/16 12:00 05/13/16 16:49 DC 05/13/16 13:10 4 UNITS Bumetanide 0.5 mg/ Syringe 2 ml @ 4 mls/hr ONE ONCE IV 05/13/16 10:15 05/13/16 10:44 DC 05/13/16 13:07 4 MLS/HR Bumetanide/Syringe (Bumex IV/ Syringe) 4 ml @ 4 mls/hr DAILY IV 05/14/16 08:00 06/13/16 08:59 05/14/16 08:27 4 MLS/HR Scopolamine (Transderm-Scop Patch) 1.5 mg Q72H TD 05/13/16 17:45 06/12/16 17:44 05/13/16 18:43 1.5 MG Miscellaneous Information (Check Scopolamine Patch Placement) 1 ea QS N/A 05/14/16 00:00 06/13/16 00:00 05/14/16 15:31 1 EA Atropine Sulfate (ATROPINE SULFATE 1% Op Soln 2 ML) 2 drops Q1H PRN PO 05/13/16 18:00 06/12/16 17:59 05/14/16 00:07 2 DROPS Acetaminophen (Tylenol Supp) 650 mg NOW ONCE OH 05/14/16 13:15 05/14/16 13:16 DC 05/14/16 13:30 650 MG Objective Vital Signs Date Time Temp Pulse Resp B/P Pulse Ox O2 Delivery O2 Flow Rate FiO2 05/14/16 16:00 Nasal Cannula 4.0 05/14/16 15:33 38.1 05/14/16 08:15 Nasal Cannula 4.0 05/14/16 00:11 38.6 05/14/16 00:00 Nasal Cannula 4.0 Physical Exam Notes: Patient lying comfortably with out laboured breathing or acute distress. Nasal cannula in situ. Scopolamine path below left ear. Warm to the touch. No acute abdominal distension. Assessment and Plan This is a 70 year old male with history of low output CHF (EF <15%), pacemaker/ AICD, DM on insulin with CKD stage III, atrial fibrillation (not on AC presumably due to Parkinson's/risk of fall), HTN, HLD, chronic urethral stricture requiring self-cath TID at homeand Parkinson's presented to the ED with R sided weakness and L facial droop for [address] head showed acute left insular CVA and evaluated promptly by the telestroke service. TPA was administered. Infarct had hemorrhagic conversion. Comfort care measures: - Patient transferred out of ICU - IV morphine 2mg [id number] for pain - IV medications for cardiomyopathy continued - Scopolomine patch for nausea - Atropine solution PRN for secretions - Tylenol suppository PRN fever prescribed - Offered empathy and attempted to address all of her concerns re: vitals, comorbidities and prognosis - As per patient and family's wishes patient is organ donor - harvesting to be arranged upon demise HISTORY SINCE ADMISSION: Acute Left frontal lobe stroke with hemorrhagic conversion - Repeated CT showed: 1. Large acute left frontal lobe infarct. 2. No evidence of acute hemorrhage 3. Old right occipital lobe infarct - Right sided weakness slightly improved, expressive aphasia ongoing - Continue Lipitor 80 - All the hypertensive medications are on hold - Can't have MRI due to pacer-defib - Neuro check per stroke protocol - Patient is NPO - Carotid US showed no carotid stenosis. - Venous Doppler b/l LE reported no DVT within the right or left lower extremity. - Echo showed: 0.5cm, mobile, echogenic mass in IVC, most consistent with thrombus. - Neurology was consulted and will appreciate their recommendations. - CT was repeated to assess brain edema and for hemorrhage on 05/11 and showed: Since the prior study, the patient has developed hemorrhage into the area of left frontal infarction. Addition there are areas of subarachnoid hemorrhage within the left frontal and parietal lobes. - Currently NPO and will place feeding tube after 24 hr jesus of TPA administration - Patient's family offered transfer to [facility] for embolectomy, but they declined. Want to pursue limited aggressive therapies - NG tube was inserted to facilitate drug and nourishment administration - It was attempted to elicit patient's preference on PEG insertion, no answer derived - Family was gathered and decided on comfort care measures. - NG tube removed. Severe chronic systolic congested heart failure - EF is <15% - Holding losartan and spironolactone for now. - Cardio suggests start low dose IV lopressor for tachycardia for now, holding other cardiac meds. Hold ASA for TPA Hold digoxin until Dobbhoff placed. Not on diuretics at this time. Restart Toprol XL 75 once daily when able to - Blood pressure low for perfusion, thus started Lopressor 2.5mg IV q6h - Echo performed showed: Moderately dilated LV. Normal LV wall thickness. Global severe LV dysfunction. LVEF <15%. Grade III diastolic dysfunction. Normal RV size and function. No significant valvular pathology. Normal estimated RA pressure. 0.5cm, mobile, echogenic mass in IVC, most consistent with thrombus. - In view of comfort care measures all PO cardiac medications discontinued except bumetanide and metoprolol IV. A. fib - ASA on hold - No anticoagulant at this time in view of recently administered TPA - Continue Digoxin 0.125mg - Start heparin BID tomorrow am after repeat CT - Echo is ordered and showed IVC thrombus, which is a complicating factor, but no LV thrombus seen. IVC clot likely to be old given it did not dissipate with TPA - Cardio recommends consider anticoagulant for A.fib when safe to do so - In view of comfort care measures all PO medications discontinued DM - on sliding scale and novolog 15unit qam - In view of comfort care measures all insulin medications discontinued CKD stage 3 - Stable, baseline creatinine is 1.40-1.60 - - In view of comfort care measures all lab work discontinued Complicated UTI - Patient has urethral stricture and self cath at home - UA done and urine culture grew gram positive cocci - Of note, patient had head cold for 2-3 days prior to CVA, and CT shows right max sinusitis - Patient has low grade fever - Continue with Rocephin 1g IV - - In view of comfort care measures all medications discontinued Parkinson's disease - Carbidopa/Levodopa on hold. - Selegiline on hold - Meds restarted when NG feeding tube inserted - In view of comfort care measures all PO PD medications discontinued Restless leg syndrome - Pramipexole on hold - In view of comfort care measures all PO medications discontinued DVT prophylaxis - contraindication after tPA for 24hrs - were cnosidering to start heparin, but not an option given hemorrhagic conversion of CVA - SCDs recommended - In view of comfort care measures all SCDs discontinued Dispo - Code status: DNR/DNI - Patient's family decided on comfort care measures - Palliative care consulted, had an in-depth conversation with and daughter , recommended morphine 2mg IV Q2h PRN pain or SOB. Continue Robinul, start scopolamine patch for secretions - Family agreeable for NG removable and deactivation of pacemaker (order put in) - Scopolamine and atropine ordered - Family indicates that he is an organ donor - organ harvesting to be coordinated after passing. - Will transfer of patient from ICU to [facility] Resident Physician Supervision Note: I interviewed and examined the patient. Discussed with Dr. Maciel and agree with findings and plan as documented in the note. Any exceptions or clarifications are listed here: None Documented By: Armani Guthrie no HPI or ROS obtainable from pt. struggling some but offered empathy and support. fever noted, nad, breathing unlabored. large CVA w hemorrhagic transformation - now for comfort care fever - tylenol prn - d/w she agrees abx would likely be more harm than good, and might be central fever otherwise as above, appears comfortable Continued [facility] stay due to: home environment unsafe for pt
[2016-05-14 15:33] VITALS: TEMP 38.1
[2016-05-14] MEDS ORDERED: LORAZEPAM 2 MG/ML 1 ML VIAL IV ONE (21:38)
[2016-05-14] MEDS ORDERED: LORAZEPAM INJ 1 MG in SYRINGE 0.5 ML IV STA (21:42)
[2016-05-14] MEDS ORDERED: LORAZEPAM 2 MG/ML 1 ML VIAL IV PRN (21:45)
[2016-05-14] MEDS ORDERED: LORAZEPAM INJ 1 MG in SYRINGE 0.5 ML IV PRN (22:00)
[2016-05-14 22:11] VITALS: TEMP 39.2
[2016-05-14] MEDS ORDERED: MoRPHine SULF/NSS 250MG/250ML 250 ML IV SCH (23:45)
[2016-05-15 00:05] VITALS: TEMP 39.5
--- NOTE | 2016-05-15 12:09 | Death Summary ---
Summary of Admission Date May 10, 2016 at 22:32 Date & Time of May 15, 2016. 0555 Cause of large ischemic CVA with hemorrhagic transformation Hospital Course admitted with new onset neurologic deficits. found to have large frontal CVA. was given tPA given that he met criteria. initially stable but then suffered hemorrhagic transformation. also had IVC thrombosis (unable to anticoagulate due to intracranial bleeding, family considered - then declined - transfer to tertiary care). with ongoing deterioration, and dysphagia that would require feeding tube that he had stated he would not want - family opted for comfort care. declined fairly rapidly over following ~48hrs, then passed 0555, 05/15/16. see progress notes/full chart for further details
== END 2016-05-15 08:15 | disposition expired | DRG 61 ==
LOC: ENRESERVTM → ENRESERVDT → EDBD 20:28 → C.EDA 20:31 → C.MSICU 22:32 → EDBEDREQ 05-13 17:34 → C.4E 05-13 19:30
PROVIDERS: ADMIT Internal Medicine; ATTEND Family Medicine
DX: I63.9 Cerebral infarction, unspecified (principal); I61.9 Nontraumatic intracerebral hemorrhage, unspecified; I82.221 Chronic embolism and thrombosis of inferior vena cava; N39.0 Urinary tract infection, site not specified; I50.42 Chronic combined systolic (congestive) and diastolic (congestive) heart failure; I69.351 Hemiplegia and hemiparesis following cerebral infarction affecting right dominant side; I42.9 Cardiomyopathy, unspecified; I69.920 Aphasia following unspecified cerebrovascular disease; N35.9 Urethral stricture, unspecified; N18.3 Chronic kidney disease, stage 3 (moderate); G25.81 Restless legs syndrome; J01.00 Acute maxillary sinusitis, unspecified; I48.91 Unspecified atrial fibrillation; G20 Parkinson's disease; I12.9 Hypertensive chronic kidney disease with stage 1 through stage 4 chronic kidney disease, or unspecified chronic kidney disease; Z95.0 Presence of cardiac pacemaker; Z83.3 Family history of diabetes mellitus; Z82.49 Family history of ischemic heart disease and other diseases of the circulatory system; Z83.6 Family history of other diseases of the respiratory system; Z79.82 Long term (current) use of aspirin; Z79.4 Long term (current) use of insulin; Z79.899 Other long term (current) drug therapy; Z66 Do not resuscitate; Z51.5 Encounter for palliative care; R33.9 Retention of urine, unspecified; I10 Essential (primary) hypertension; R80.9 Proteinuria, unspecified; E55.9 Vitamin D deficiency, unspecified; E11.65 Type 2 diabetes mellitus with hyperglycemia